=== PATIENT | female | born 1955 | race Caucasian/White ===

== ENCOUNTER → 2017-10-14 14:41 | Outpatient (CLI) | payer MEDICARE, OTHER, SELFPAY ==
--- NOTE | 2017-10-14 14:51 | XR_ITS ---
XR KUB CLINICAL INDICATION: ITS.REASON: OBSTIPATION ORDERING PHYSICIAN: Shimon Erickson PATIENT AGE: 62 years COMPARISON: None FINDINGS: The bowel gas pattern is nonspecific with gas-filled loops of small and large bowel. Increased soft tissue density is present in the pelvis and may be related pelvic mass versus distended urinary bladder. There is mild lumbar curvature convex right. IMPRESSION: 1. Mild amount gas-filled loops of small and large bowel. No obvious obstruction. 2. Pelvic soft tissue mass versus enlarged uterus or distended urinary bladder
== END ==
PROVIDERS: PCP Internal Medicine; Visit Provider Internal Medicine
DX: K59.09 Other constipation (principal)
CPT/HCPCS: 74018

== ENCOUNTER → 2017-10-24 10:38 | Outpatient (CLI) | payer MEDICARE, OTHER, SELFPAY | PROVIDERS: PCP Internal Medicine; Visit Provider Nurse Practitioner Obstetrics & Gynecology | DX: R19.03 Right lower quadrant abdominal swelling, mass and lump (principal) | CPT/HCPCS: 36415; 86316 ==

== ENCOUNTER → 2018-01-18 15:33 | Outpatient (CLI) | payer MEDICARE, OTHER, SELFPAY ==
--- NOTE | 2018-01-18 16:17 | NVE_ITS ---
Venous Exam Indications: 729.5 Pain in limb. IMPRESSIONS 1. There is no evidence of significant Reflux. 2. No evidence of deep or superficial vein thrombosis involving the left lower extremity Right lower extremity venous duplex evaluation. Doppler flow study including spectral analysis, color and tsai scale imaging. Location: Vascular laboratory. Patient status: Outpatient. Tables: Venous flow and imaging: + +-------+ + Location Overall Flow properties + +-------+ + Right common femoral Patent Normal phasicity; spontaneous; normal augmentation; compressible + +-------+ + Right saphenofemoral junction Patent Compressible + +-------+ + Right profunda femoral Patent Compressible + +-------+ + Right femoral Patent Normal phasicity; spontaneous; normal augmentation; compressible + +-------+ + Right greater saphenous Patent Normal phasicity; spontaneous; normal augmentation; compressible + +-------+ + Right popliteal Patent Normal phasicity; spontaneous; normal augmentation; compressible + +-------+ + Right posterior tibial Patent Compressible + +-------+ + Right peroneal Patent Compressible + +-------+ + Right gastrocnemius Patent Compressible + +-------+ + Right soleal Patent Compressible + +-------+ + (Report amended ) Electronically signed by: Otoniel Aldana [id number]
== END ==
PROVIDERS: PCP Internal Medicine; Visit Provider Internal Medicine
DX: M79.604 Pain in right leg (principal)
CPT/HCPCS: 93971

== ENCOUNTER → 2018-08-09 14:50 | Outpatient (CLI) | payer MEDICARE, OTHER, SELFPAY ==
[2018-08-09 16:39] LABS: Anion Gap 12.8 mEq/L (5-15); Blood Urea Nitrogen 18 mg/dL (7-18); Carbon Dioxide 30 mmol/L (21.0-32.0); Chloride 102 mmol/L (98-107); Creatinine,Serum 0.93 mg/dL (0.55-1.02); Estimated Glomerular Filt Rate 61 ml/min (>60); GFR (African American) 73 ML/MIN (>60); Glucose 99 mg/dL (74-106); Potassium 4.8 mmoL/L (3.5-5.1); Sodium 140 mmol/L (136-145)
== END ==
PROVIDERS: Visit Provider Internal Medicine
DX: I10 Essential (primary) hypertension (principal)
CPT/HCPCS: 36415; 80048

== ENCOUNTER → 2019-01-03 15:22 | Outpatient (CLI) | payer MEDICARE, OTHER, SELFPAY ==
[2019-01-03 15:40] LABS: Basophils % 0.2 % (0.1-2.0); Eosinophils # 0.1 K/mm3 (0.0-0.4); Eosinophils % 1.7 % (0.1-12.0); Hematocrit 45.4 % (37.0-47.0); Hemoglobin 15.2 g/dL (12.2-16.2); Lymphocytes # 1.5 K/mm3 (0.7-4.5); Lymphocytes % 17.1 % (10-50); Mean Corpuscular HGB Conc 33.4 g/dL (31.8-35.4); Mean Corpuscular Hemoglobin 29.2 pg (27.0-31.2); Mean Corpuscular Volume 87.5 fl (81-99); Mean Platelet Volume 6.2 fl (7.4-10.4); Monocytes # 0.4 K/mm3 (0.1-1.0); Monocytes % 5.1 % (1.7-9.3); Neutrophils # 6.4 K/mm3 (1.8-7.8); Neutrophils % 75.8 % (37.0-80.0); Platelet Count 114 K/mm3 (142-424); Red Blood Count 5.19 M/mm3 (4.20-5.40); Red Cell Distribution Width 13.7 % (11.5-17.5); White Blood Count 8.5 K/mm3 (4.8-10.8)
[2019-01-03 18:11] LABS: Anion Gap 10.6 mEq/L (5-15); Blood Urea Nitrogen 21 mg/dL (7-18); Calcium 9.4 mg/dL (8.5-10.1); Carbon Dioxide 31 mmol/L (21.0-32.0); Chloride 102 mmol/L (98-107); Creatinine,Serum 0.98 mg/dL (0.55-1.02); Estimated Glomerular Filt Rate 57 ml/min (>60); GFR (African American) 69 ML/MIN (>60); Glucose 93 mg/dL (74-106); Potassium 4.6 mmoL/L (3.5-5.1); Sodium 139 mmol/L (136-145)
== END ==
PROVIDERS: Visit Provider Internal Medicine
DX: I10 Essential (primary) hypertension (principal); D69.6 Thrombocytopenia, unspecified
CPT/HCPCS: 36415; 80048; 85025

== ENCOUNTER → 2019-01-12 11:03 | Outpatient (CLI) | payer MEDICARE, OTHER, SELFPAY ==
--- NOTE | 2019-01-12 11:11 | XR_ITS ---
XR hand LT min 3V HISTORY: Posttraumatic pain ITS.REASON: S/P FALL ORDERING PHYSICIAN: Shimon Erickson PATIENT AGE: 63 years COMPARISON: None FINDINGS: There is an oblique mildly displaced fracture involving the proximal aspect of the proximal phalanx of the fourth finger with mild ulnar and dorsal angulation of the distal fracture fragment. A mildly displaced transverse fracture involves the proximal aspect of the proximal phalanx of the fifth finger. The distal fracture fragment is displaced toward the radius x 3 mm. There is also mild dorsal and ulnar angulation and palmar displacement of the distal fracture fragment. Severe osteoarthritic changes are present at the first metacarpal carpal joint. IMPRESSION: Mildly displaced fractures of the proximal phalanx of the fourth and fifth digits
--- NOTE | 2019-01-12 11:11 | XR_ITS ---
XR knee LT 3V HISTORY: Pain following injury ITS.REASON: S/P FALL 01/11/19,LT SHOULDER HAND/WRIST,LT KNEE INJURY ORDERING PHYSICIAN: Shimon Erickson PATIENT AGE: 63 years COMPARISON: None FINDINGS: No fracture or dislocation. No lytic or blastic change. Normal mineralization. No significant arthritic changes evident. No other significant findings IMPRESSION: Negative Knee
--- NOTE | 2019-01-12 11:11 | XR_ITS ---
XR wrist LT min 3V HISTORY pain following injury ITS.REASON: S/P FALL ORDERING PHYSICIAN: Shimon Erickson PATIENT AGE: 63 years Comparison: None FINDINGS: Severe osteoarthritic changes are present at the first metacarpal carpal joint with periarticular calcification. No acute wrist fractures evident. There are fractures of the proximal phalanges of the fourth and fifth digits as described in the hand report. IMPRESSION: Osteoarthritis of the wrist, no acute fracture
--- NOTE | 2019-01-12 11:11 | XR_ITS ---
XR shoulder LT min 2V HISTORY: Pain following injury ITS.REASON: S/P FALL ORDERING PHYSICIAN: Shimon Erickson PATIENT AGE: 63 years Comparison: None FINDINGS: No acute fracture or dislocation. There are mild osteoarthritic changes of the glenohumeral joint. IMPRESSION: No acute finding
== END ==
PROVIDERS: PCP Internal Medicine; Visit Provider Internal Medicine
DX: M25.512 Pain in left shoulder (principal); M79.642 Pain in left hand; M25.562 Pain in left knee
CPT/HCPCS: 73030; 73110; 73130; 73562

== ENCOUNTER → 2019-01-24 09:17 | Outpatient (CLI) | payer MEDICARE, OTHER, SELFPAY ==
--- NOTE | 2019-01-24 09:22 | XR_ITS ---
XR hand LT min 3V HISTORY: Follow-up fracture/ORIF, pain and swelling ITS.REASON: 3 views ORDERING PHYSICIAN: Osmani Caputo MD PATIENT AGE: 63 years COMPARISON: 01/16/2019 FINDINGS: There are 2 pins present stabilizing the proximal phalanx fracture of the fifth finger which is in good alignment. A longitudinal and and an oblique smaller and is present within the proximal phalanx fracture of the fourth finger with good alignment. There is an overlying splint. There are osteoarthritic changes of the first metacarpal carpal joint. IMPRESSION: Status post external fixation of the fourth and fifth proximal phalangeal fracture with good alignment
== END ==
PROVIDERS: PCP Internal Medicine; Visit Provider Orthopaedic Surgery
DX: S62.611A Displaced fracture of proximal phalanx of left index finger, initial encounter for closed fracture (principal)
CPT/HCPCS: 73130

== ENCOUNTER 2019-01-25 10:16 | Outpatient (RCR) | payer MEDICARE, OTHER, SELFPAY | END 2019-01-25 10:25 | disposition home or self-care (01) | LOC: OT 10:16 | PROVIDERS: Visit Provider Orthopaedic Surgery | DX: S62.619A Displaced fracture of proximal phalanx of unspecified finger, initial encounter for closed fracture (principal) | CPT/HCPCS: 97763 ==

== ENCOUNTER → 2019-02-09 10:16 | Outpatient (CLI) | payer MEDICARE, OTHER, SELFPAY ==
--- NOTE | 2019-02-09 10:21 | XR_ITS ---
XR hand LT min 3V HISTORY: Follow-up ORIF ITS.REASON: 3 views ORDERING PHYSICIAN: Wanda Boyle MD PATIENT AGE: 64 years COMPARISON: 01/24/2019 FINDINGS: No change in the pins in the proximal phalanx of the fifth digit as well as proximal phalanx of the fourth digit and metacarpal phalangeal junction. There remains good alignment of the fractures of the proximal phalanx of the fourth and fifth digits. IMPRESSION: No change status post ORIF fourth fifth proximal phalanges with good alignment
== END ==
PROVIDERS: PCP Internal Medicine; Visit Provider Orthopaedic Surgery
DX: S62.619A Displaced fracture of proximal phalanx of unspecified finger, initial encounter for closed fracture (principal)
CPT/HCPCS: 73130

== ENCOUNTER → 2019-03-02 12:38 | Outpatient (CLI) | payer MEDICARE, OTHER, SELFPAY ==
--- NOTE | 2019-03-02 12:43 | XR_ITS ---
XR hand LT min 3V HISTORY: Follow-up fracture ITS.REASON: left hand fx post op ORDERING PHYSICIAN: Wanda Boyle MD PATIENT AGE: 64 years COMPARISON: 02/09/2019 FINDINGS: K wires been removed from the fourth and fifth digits. One can remains in place at the distal aspect of the proximal phalanx of the fourth finger. Oblique fracture line remains visible at the proximal phalanx of the fourth digit. The fracture at the base of the proximal phalanx of the fifth digit is not well delineated and may represent some healing. Fractures are nondisplaced. There are osteoarthritic changes of the first metacarpal carpal joint IMPRESSION: Good alignment status post pin removal other fractures of the proximal phalanx of the fourth and fifth digits
== END ==
PROVIDERS: PCP Internal Medicine; Visit Provider Orthopaedic Surgery
DX: S62.619A Displaced fracture of proximal phalanx of unspecified finger, initial encounter for closed fracture (principal)
CPT/HCPCS: 73130

== ENCOUNTER → 2019-04-04 14:03 | Outpatient (CLI) | payer MEDICARE, OTHER, SELFPAY ==
--- NOTE | 2019-04-04 14:08 | XR_ITS ---
XR hand LT min 3V HISTORY: ITS.REASON: finger fracture ORDERING PHYSICIAN: Wanda Boyle MD PATIENT AGE: 64 years COMPARISON: 03/02/2019. FINDINGS: The position of the fixator pin involving the proximal phalanx of the fourth digit is stable. There are subtle slight increase osseous union across the oblique fracture involving the proximal phalanx of the fourth digit. There is no abnormal angulation. The remainder of the hand and wrist appear stable. Impression: Mild partial healing of the fracture of the proximal phalanx of the fourth digit.
== END ==
PROVIDERS: PCP Internal Medicine; Visit Provider Orthopaedic Surgery
DX: S62.619A Displaced fracture of proximal phalanx of unspecified finger, initial encounter for closed fracture (principal)
CPT/HCPCS: 73130

== ENCOUNTER 2019-04-09 14:00 | Outpatient (RCR) | payer MEDICARE, OTHER, SELFPAY ==
--- NOTE | 2019-02-16 15:41 | HMH.OTOPEV ---
OT Inpatient Evaluation Rehab OT Outpatient Eval Start: 02/16/19 14:53 Freq: Status: Active Protocol: [facility]16[facility]19 14[facility]: [facility]16[facility]19 [id number] Electronically Signed By Song Rousseau OT 02/16/19 14:54 Outpatient Therapy Subjective History Subjective History Pt is a 64 year old female who reports to OT for initial evaluation to left hand. Pt was accompanied by her caregiver; pt has down syndrome and is non verbal. Caregiver reports she had a fall on 01/11/19 in [address] hallway resulting in fracturing her left ring and small fingers. Pt has surgery on 01/16/19; S/P CRPP 4th and 5th proximal phalanges. 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 Caregiver explained the pins were removed on the 09 of February. Pt does demonstrate with decreased AROM and strength at left ring and small fingers. Pt will continue to be seen by therapist in order to increase functional use of Left hand. L Ring Finger STG MP Flex: 75 degrees PIP Flex: 90 degrees PIP Ext: 0-40 degrees DIP Flex: 20 degrees L Ring Finger LTG MP Flex: 90 degrees PIP Flex: 100 degrees PIP Ext: 30 degrees DIP Flex: 40 degrees L Small Finger STG MP Flex: 65 degrees PIP Flex: 60 degrees DIP Flex: 50 degrees L Small Finger LTG MP Flex: 80 degrees PIP Flex: 90 degrees DIP Flex: 60 degrees Chief Complaint Stiff,Weakness,Decreased Parking Attendant Strength Symptom Type Ache,Throb Symptoms Relieved By Rest/Positioning Symptoms Aggravated By Physical Activity,Rachel
== END 2019-04-09 14:05 | disposition home or self-care (01) ==
LOC: OT 14:00
PROVIDERS: Visit Provider Orthopaedic Surgery
DX: S62.645A Nondisplaced fracture of proximal phalanx of left ring finger, initial encounter for closed fracture (principal); S62.647A Nondisplaced fracture of proximal phalanx of left little finger, initial encounter for closed fracture
CPT/HCPCS: 97110; 97140; 97166

== ENCOUNTER → 2019-06-27 12:00 | Outpatient (CLI) | payer MEDICARE, OTHER, SELFPAY ==
[2019-06-27 13:02] LABS: Basophils % 0.3 % (0.1-2.0); Eosinophils # 0.2 K/mm3 (0.0-0.4); Eosinophils % 1.9 % (0.1-12.0); Hematocrit 46.6 % (37.0-47.0); Hemoglobin 14.7 g/dL (12.2-16.2); Lymphocytes # 1.4 K/mm3 (0.7-4.5); Lymphocytes % 15.9 % (10-50); Mean Corpuscular HGB Conc 31.5 g/dL (31.8-35.4); Mean Corpuscular Hemoglobin 28.5 pg (27.0-31.2); Mean Corpuscular Volume 90.5 fl (81-99); Mean Platelet Volume 6.6 fl (7.4-10.4); Monocytes # 0.4 K/mm3 (0.1-1.0); Monocytes % 4.5 % (1.7-9.3); Neutrophils # 6.8 K/mm3 (1.8-7.8); Neutrophils % 77.4 % (37.0-80.0); Platelet Count 125 K/mm3 (142-424); Red Blood Count 5.15 M/mm3 (4.20-5.40); Red Cell Distribution Width 14.5 % (11.5-17.5); White Blood Count 8.8 K/mm3 (4.8-10.8)
[2019-06-27 13:46] LABS: Alanine Aminotransferase 20 U/L (12-78); Albumin/Globulin Ratio 1.3 (1.1-1.8); Alkaline Phosphatase 98 U/L (46-116); Anion Gap 11.8 mEq/L (5-15); Aspartate Amino Transferase 19 U/L (15-37); Bilirubin,Total 0.5 mg/dL (0.2-1.0); Blood Urea Nitrogen 23 mg/dL (7-18); Calcium 9.3 mg/dL (8.5-10.1); Carbon Dioxide 31 mmol/L (21.0-32.0); Chloride 103 mmol/L (98-107); Creatinine,Serum 0.96 mg/dL (0.55-1.02); Estimated Glomerular Filt Rate 58 ml/min (>60); GFR (African American) 71 ML/MIN (>60); Glucose 78 mg/dL (74-106); Potassium 4.8 mmoL/L (3.5-5.1); Sodium 141 mmol/L (136-145)
== END ==
PROVIDERS: Visit Provider Internal Medicine
DX: I10 Essential (primary) hypertension (principal); D69.6 Thrombocytopenia, unspecified
CPT/HCPCS: 36415; 80053; 85025

== ENCOUNTER → 2022-11-22 14:42 | Outpatient (CLI) | payer MEDICARE, OTHER, SELFPAY ==
[2022-11-22 17:29] LABS: Chloride 99 mmol/L (98-107); Potassium 4.9 mmoL/L (3.5-5.1); Sodium 135 mmol/L (136-145)
[2022-11-22 17:31] LABS: Blood Urea Nitrogen 22 mg/dl (7-17); Estimated Glomerular Filt Rate 71 ml/min (>60); GFR (African American) 86 ML/MIN (>60)
[2022-11-22 17:32] LABS: Alanine Aminotransferase 24 U/L (12-78); Albumin Level 4.1 g/dl (3.5-5.0); Albumin/Globulin Ratio 1.9 (1.1-1.8); Alkaline Phosphatase 97 U/L (38-126); Anion Gap 10.9 mEq/L (5-15); Aspartate Amino Transferase 33 U/L (14-36); Bilirubin,Total 0.5 mg/dl (0.2-1.3); Carbon Dioxide 30 mmol/L (22.0-30.0); Globulin 2.2 g/dL (1.3-3.2); Total Protein,Serum 6.3 g/dl (6.3-8.2)
[2022-11-22 17:33] LABS: Glucose 56 mg/dl (74-100)
== END ==
PROVIDERS: PCP Internal Medicine; Visit Provider Internal Medicine
DX: I10 Essential (primary) hypertension (principal); D69.6 Thrombocytopenia, unspecified; K59.00 Constipation, unspecified; F71 Moderate intellectual disabilities
CPT/HCPCS: 80053

== ENCOUNTER 2023-03-22 18:54 | Inpatient (IN) | payer MEDICARE, OTHER, SELFPAY ==
[2023-03-22] VITALS (8 sets, daily range): BP systolic 144–184; BP diastolic 71–85; PULSE 70–81; RESP 16–20; TEMP 36.6–43; O2SAT 94–98; BMI 25.3
--- NOTE | 2023-03-22 19:37 | HMH.EDGENADL ---
Discharge Plan Disposition Patient Disposition: Still a Patient Chief Complaint: Nausea/Vomiting/Diarrhea Prescriptions Prescriptions: No Action polyethylene glycol 3350 [GentleLax] 17 gram/dose powder 17 g PO Q10M spironolactone 25 MG tablet 75 mg PO DAILY Referrals Follow up/Referrals: Shimon Erickson MD [Primary Care Provider] - See instructions Clinical Impressions Clinical Impression: Nausea & vomiting Instructions Patient Instructions: DI for Diarrhea and Traveler's Diarrhea -- Adult, DI for Diarrhea and Traveler's Diarrhea -- Child, DI for Nausea -- Adult, DI for Nausea -- Child Discharge ED Provider: [facility] General Adult HPI General Chief complaint: Nausea/Vomiting/Diarrhea Stated complaint: constipated Time Seen by Provider: 03/22/23 19:37 Mode of Arrival: Wheelchair Source of Information: Patient Limitations: Physical Limitations Description of Symptoms (Recalled from ER Triage Doc. by RN): pt is nonverbal and brought to the ED by her sister which is her legal guardian. pt sister reports the pt has had two episodes of vomiting today and reported she has not been acting like herself. pt sister also reported the pt has not had a normal large bowel movement since 03/05 but instead has had multiple small or medium bowel movements. on assessment pt does have wet respirations and family is concerned for aspiration. History of Present Illness HPI narrative: Patient is a 68-year-old female brought in by her sister who is her legal guardian. The patient has developmental delay and primary history is obtained from the sister. The sister states that the patient typically has very robust appetite but over the last 24 hours she has had decreased p.o. intake and multiple vomiting episodes and possible abdominal complaints. No diarrhea. No fevers or chills. No respiratory complaints. She does have a history of constipation and she has not had any significant changes in bowel movements over the last month. Related Data Home Medications Medication Instructions Recorded Confirmed polyethylene glycol 3350 17 17 g PO Q10M constipation 10/24/17 04/04/19 gram/dose oral powder (GentleLax) spironolactone 25 mg tablet 75 mg PO DAILY Fluid 01/16/19 04/04/19 betamethasone dipropionate 0.05 % 1 applic topical BID rash 03/22/23 03/22/23 topical ointment diphenhydramine HCl 12.5 mg/5 mL 25 mg PO DAILYP PRN . 03/22/23 03/22/23 oral elixir fexofenadine 180 mg tablet 180 mg PO DAILY Allergy Symptoms 03/22/23 03/22/23 loratadine 10 mg tablet (Claritin) 10 mg PO DAILY Allergy Symptoms 03/22/23 03/22/23 temazepam 15 mg capsule 15 mg PO DAILY sleep 03/22/23 03/22/23 vitamins A,C,Q-rqlg-lyjghk 2,148 1 tab PO BID Supplement 03/22/23 03/22/23 mcg-113 mg-45 mg-17.4 mg tablet (PreserVision AREDS) Allergies Allergy/AdvReac Type Severity Reaction Status Date / Time No Known Allergies Allergy Verified 04/04/19 16:20 [facility] Disclaimer: The information contained in this section may have been updated after the patient was seen, as this information can be updated by other users. Social History Smoking Status: Never smoker alcohol intake: never current occupational status: disabled Travel in the last 8 weeks: None household members: family housing: house caffeine: Yes ROS Obtained: Yes All systems reviewed & no additional complaints except as documented Physical Exam General General appearance: alert Respiratory Respiratory exam: Present normal lung sounds bilaterally Cardiovascular Cardiovascular exam: Present regular rate and tachycardia Abdominal Exam Abdominal exam: Present soft and distention (Mildly distended patient's clinical status limits a reliable exam there appears to be some tenderness with deep palpation throughout the entire abdomen) Neurological Exam Neurological exam: Present alert and oriented X3 Medical Decision Making [employer] Inquiry Pt receiving contr
--- NOTE | 2023-03-22 19:44 | CT_ITS ---
PROCEDURE INFORMATION: Exam: CT Abdomen And Pelvis With Contrast Exam date and time: 03/22/2023 8:32 PM Age: 68 years old Clinical indication: Patient HX: Abd distention w nausea since last night; Additional info: Diffuse abd pain/ n/v TECHNIQUE: Imaging protocol: Computed tomography of the abdomen and pelvis with contrast. Radiation optimization: All CT scans at this facility use at least one of these dose optimization techniques: automated exposure control; mA and/or kV adjustment per patient size (includes targeted exams where dose is matched to clinical indication); or iterative reconstruction. Contrast material: ISOVUE; Contrast volume: 75 ml; Contrast route: IV; REPORTING DATA: Count of CT and Cardiac NM exams in prior 12 months: This patient has received 0 known CTs and 0 known cardiac nuclear medicine studies in the 12 months prior to the current study. COMPARISON: CR KUB XR KUB 10/14/2017 2:55 PM FINDINGS: Liver: Normal. No mass. Gallbladder and bile ducts: Normal. No calcified stones. No ductal dilation. Pancreas: Normal. No ductal dilation. Spleen: Multiple calcified splenic granulomata. Adrenal glands: 1.6 cm right adrenal myelolipoma. Kidneys and ureters: Normal. No hydronephrosis. Stomach and bowel: Dilated cecum seen in the upper abdomen and left upper quadrant. There is spiraling of the mesentery and vasculature in the right lower quadrant. Colonic diverticulosis. Appendix: No evidence of appendicitis. Intraperitoneal space: Small volume of free fluid in the lower abdomen and pelvis. Vasculature: Mild atherosclerotic changes are seen within the abdominal aorta and branch vasculature without evidence of aneurysm. Lymph nodes: Unremarkable. No enlarged lymph nodes. Urinary bladder: Unremarkable as visualized. Reproductive: Unremarkable as visualized. Bones/joints: Unremarkable. No acute fracture. Soft tissues: Unremarkable. IMPRESSION: 1. Findings consistent with cecal volvulus. 2. Diverticulosis. 3. Small volume of ascites. 4. 1.6 cm right adrenal myelolipoma.
--- NOTE | 2023-03-22 19:44 | PC.NURSE ---
Rounded on patient, family at bedside. no concerns were voiced at this time.
[2023-03-22 19:58] LABS: Basophils % 0.1 % (0.1-2.0); Eosinophils # 0.1 K/mm3 (0.0-0.4); Eosinophils % 0.5 % (0.1-12.0); Hematocrit 43.9 % (37.0-47.0); Hemoglobin 14.2 g/dL (12.2-16.2); Lymphocytes # 0.9 K/mm3 (0.7-4.5); Lymphocytes % 6.3 % (10-50); Mean Corpuscular HGB Conc 32.4 g/dL (31.8-35.4); Mean Corpuscular Hemoglobin 28.6 pg (27.0-31.2); Mean Corpuscular Volume 88.3 fl (81-99); Mean Platelet Volume 7.5 fl (7.4-10.4); Monocytes # 0.2 K/mm3 (0.1-1.0); Monocytes % 1.6 % (1.7-9.3); Neutrophils # 13.6 K/mm3 (1.8-7.8); Neutrophils % 91.6 % (37.0-80.0); Platelet Count 144 K/mm3 (142-424); Red Blood Count 4.97 M/mm3 (4.20-5.40); Red Cell Distribution Width 14.2 % (11.5-17.5); White Blood Count 14.9 K/mm3 (4.8-10.8)
[2023-03-22 20:00] LABS: Chloride 91 mmol/L (98-107); MANUAL DIFFERENTIAL MANUAL DIFFERENTIAL (MANUAL DIFF); Potassium 4.1 mmoL/L (3.5-5.1); Sodium 130 mmol/L (136-145)
[2023-03-22 20:02] LABS: Albumin Level 4.2 g/dl (3.5-5.0)
[2023-03-22 20:03] LABS: Alanine Aminotransferase 34 U/L (12-78); Alkaline Phosphatase 118 U/L (38-126); Anion Gap 11.1 mEq/L (5-15); Aspartate Amino Transferase 40 U/L (14-36); Bilirubin,Total 0.3 mg/dl (0.2-1.3); Blood Urea Nitrogen 13 mg/dl (7-17); Calcium 9.1 mg/dl (8.4-10.2); Carbon Dioxide 32 mmol/L (22.0-30.0); Creatinine Clearance Estimated 40 mL/min (50-200); Estimated Glomerular Filt Rate 83 ml/min (>60); GFR (African American) 100 ML/MIN (>60); Glucose 191 mg/dl (74-100); Lipase 83 U/L (23-300)
[2023-03-22 20:04] LABS: Albumin/Globulin Ratio 1.6 (1.1-1.8); Globulin 2.6 g/dL (1.3-3.2); Total Protein,Serum 6.8 g/dl (6.3-8.2)
[2023-03-22 20:22] LABS: Lymphocytes % 9 % (10-50); Monocytes % 1 % (2-9); Neutrophils % 89 % (42-76); Platelet Estimate Slight Decrease; RBC Morphology Normal; Total Cells Counted 100
--- NOTE | 2023-03-22 20:25 | PC.NURSE ---
patient gone to RAD at this time.
--- NOTE | 2023-03-22 20:38 | PC.NURSE ---
patient back in room at this time.
[2023-03-22 21:20] LABS: Microscopic, Urine URINE MICROSCOPIC (MICROSCOPIC)
--- NOTE | 2023-03-22 21:24 | PC.NURSE ---
Dr. Carvalho paged for ED doctor
[2023-03-22 21:25] LABS: Appearance,Urine CLEAR (Clear); Bilirubin,Urine Negative (Negative); Blood, Urine Negative (Negative); Color,Urine YELLOW (Yellow); Glucose,Urine (UA) Negative (Negative); Ketones,Urine Negative (Negative); Leukocyte Esterase,Urine Negative (Negative); Nitrate,Urine Negative (Negative); Protein,Urine Negative (Negative); Specific Gravity, Urine <= 1.005 (1.005-1.030); Urobilinogen,Urine 0.2 EU/dl (0.2)
--- NOTE | 2023-03-22 21:26 | PC.NURSE ---
Dr. Carvalho on phone with ED doctor
--- NOTE | 2023-03-22 21:36 | PC.NURSE ---
O/P with [facility] for possible transfer at this time.
--- NOTE | 2023-03-22 21:37 | PC.NURSE ---
will call back when images are received.
--- NOTE | 2023-03-22 21:39 | HMH.EDGENADL ---
Discharge Plan Disposition Patient Disposition: Still a Patient Clinical Impressions Clinical Impression: Nausea & vomiting Discharge ED Provider: [facility] General Adult HPI General Chief complaint: Nausea/Vomiting/Diarrhea Stated complaint: constipated Time Seen by Provider: 03/22/23 19:37 Mode of Arrival: Wheelchair Source of Information: Patient Limitations: Physical Limitations Description of Symptoms (Recalled from ER Triage Doc. by RN): pt is nonverbal and brought to the ED by her sister which is her legal guardian. pt sister reports the pt has had two episodes of vomiting today and reported she has not been acting like herself. pt sister also reported the pt has not had a normal large bowel movement since 03/05 but instead has had multiple small or medium bowel movements. on assessment pt does have wet respirations and family is concerned for aspiration. Related Data Home Medications Medication Instructions Recorded Confirmed polyethylene glycol 3350 17 17 g PO Q10M constipation 10/24/17 03/22/23 gram/dose oral powder (GentleLax) spironolactone 25 mg tablet 75 mg PO DAILY Fluid 01/16/19 03/22/23 betamethasone dipropionate 0.05 % 1 applic topical BID rash 03/22/23 03/22/23 topical ointment diphenhydramine HCl 12.5 mg/5 mL 25 mg PO DAILYP Allergy Symptoms 03/22/23 03/22/23 oral elixir fexofenadine 180 mg tablet 180 mg PO HS Allergy Symptoms 03/22/23 03/23/23 loratadine 10 mg tablet (Claritin) 10 mg PO DAILY Allergy Symptoms 03/22/23 03/22/23 temazepam 15 mg capsule 15 mg PO HS sleep 03/22/23 03/23/23 vitamins A,C,I-veoj-exxair 2,148 1 tab PO BID Supplement 03/22/23 03/22/23 mcg-113 mg-45 mg-17.4 mg tablet (PreserVision AREDS) Allergies Allergy/AdvReac Type Severity Reaction Status Date / Time losartan Allergy Verified 03/22/23 22:17 [facility] Disclaimer: The information contained in this section may have been updated after the patient was seen, as this information can be updated by other users. Social History (Updated 03/23/23 @ 01:48 by jayne manzanares CRNA) Smoking Status: Never smoker alcohol intake: never substance use type: denies use current occupational status: disabled Travel in the last 8 weeks: None household members: family housing: house caffeine: Yes Physical Exam General General appearance: alert Medical Decision Making Vital Signs: 03/22/23 18:55 03/22/23 21:15 03/22/23 21:30 Temperature 97.9 F Temperature Source Axillary Pulse Rate 71 72 Pulse Rate [Left Radial] 81 Respiratory Rate 17 18 Blood Pressure 144/72 H 155/76 H Blood Pressure [Right Arm] 184/82 H Blood Pressure Mean 87 Blood Pressure Mean [Right Arm] 116 Blood Pressure Source [Right Arm] Automatic Cuff Blood Pressure Position [Right Arm] Sitting 02 Sat by Pulse Oximetry 97 97 96 Oxygen Delivery Method Room Air 03/22/23 21:40 03/22/23 22:01 03/22/23 22:21 Temperature Temperature Source Pulse Rate 71 73 72 Pulse Rate [Left Radial] Respiratory Rate 18 20 Blood Pressure 146/71 H 148/71 H 157/85 H Blood Pressure [Right Arm] Blood Pressure Mean 89 109 Blood Pressure Mean [Right Arm] Blood Pressure Source [Right Arm] Blood Pressure Position [Right Arm] 02 Sat by Pulse Oximetry 94 L 98 97 Oxygen Delivery Method 03/22/23 22:58 03/22/23 22:58 Temperature 97.9 F Temperature Source Axillary Pulse Rate 70 Pulse Rate [Left Radial] Respiratory Rate 16 Blood Pressure 157/85 H Blood Pressure [Right Arm] Blood Pressure Mean Blood Pressure Mean [Right Arm] Blood Pressure Source [Right Arm] Blood Pressure Position [Right Arm] 02 Sat by Pulse Oximetry Oxygen Delivery Method Room Air Room Air Lab Data Lab Results 03/22/23 11:15: Urine Color Yellow, Urine Appearance Clear, Urine pH 6.5, Ur Specific [place] <= 1.005, Urine Protein Negative, Urine Glucose (UA) Negative, Urine Ketones Negative, Urine
--- NOTE | 2023-03-22 21:40 | PC.NURSE ---
O/P with at this time.
[2023-03-22 21:54] LABS: Squamous Epithelial Cell,Urine Occasional #/hpf (0-5)
--- NOTE | 2023-03-22 21:54 | PC.NURSE ---
Awaiting call back from [facility] at this time.
--- NOTE | 2023-03-22 21:59 | PC.NURSE ---
O/P with at this time.
[2023-03-22 22:02] LABS: Lactic Acid 1.3 mmol/L (0.7-2.1)
--- NOTE | 2023-03-22 22:03 | PC.NURSE ---
paged at this
--- NOTE | 2023-03-22 22:04 | PC.NURSE ---
O/P with at this time.
--- NOTE | 2023-03-22 22:06 | PC.NURSE ---
patient going to surgery tonight
--- NOTE | 2023-03-22 22:08 | PC.NURSE ---
House notified that patient is going to OR with Dr. Carvalho and to call in surg. team
[2023-03-22 22:10] LABS: Coronavirus 19, PCR Not Detected (NotDetected); Influenza A, PCR Not Detected (NotDetected); Influenza B, PCR Not Detected (NotDetected)
--- NOTE | 2023-03-22 22:17 | PC.NURSE ---
Surgery team paged at this time at request. Received call backs from XOCHITL Johnson, Val, and Malini.
--- NOTE | 2023-03-22 22:39 | PC.NURSE ---
in room talking with patient at this time.
--- NOTE | 2023-03-22 22:48 | PC.NURSE ---
pt family requested hearing aids be kept in until she gets upstairs. surgery aware.
--- NOTE | 2023-03-22 22:54 | EXP.SURG.CON ---
History of Present Illness *Admission Date: 03/22/23 *Reason for visit:: Bowel obstruction *History of present illness: Patient is a 68-year-old female who is nonverbal secondary to patient having developmental delay. She had presented to the emergency department after being brought here by her caregiver, her sister. Patient has had diminished appetite over the past 24 hours with decreased intake. She has had multiple episodes of vomiting. She has had decreased bowel function. She has had progressive abdominal distention. Evaluation in the emergency department revealed appreciably distended abdomen. There is no guarding or rebound but she did have diffuse tenderness with deep palpation. Work-up included CT scan of the abdomen and pelvis which revealed dilated cecum and findings of spiraling of the mesentery consistent with cecal volvulus with a small volume of fluid/ascites. Surgery was contacted. Initially it was felt that the patient would be better served in a tertiary facility. However, no bed availability was able to be acquired. Therefore plan was made to proceed with surgical intervention at this facility for cecal volvulus. [facility] Disclaimer: The information contained in this section may have been updated after the patient was seen, as this information can be updated by other users. Social History Smoking Status: Never smoker alcohol intake: never current occupational status: disabled Travel in the last 8 weeks: None household members: family housing: house caffeine: Yes Meds Home Medications and Allergies Home Medications Medication Instructions Recorded Confirmed Type polyethylene glycol 3350 17 17 g PO Q10M constipation 10/24/17 03/22/23 History gram/dose oral powder (GentleLax) spironolactone 25 mg tablet 75 mg PO DAILY Fluid 01/16/19 03/22/23 History betamethasone dipropionate 0.05 % 1 applic topical BID rash 03/22/23 03/22/23 History topical ointment diphenhydramine HCl 12.5 mg/5 mL 25 mg PO DAILYP PRN . 03/22/23 03/22/23 History oral elixir fexofenadine 180 mg tablet 180 mg PO DAILY Allergy Symptoms 03/22/23 03/22/23 History loratadine 10 mg tablet (Claritin) 10 mg PO DAILY Allergy Symptoms 03/22/23 03/22/23 History temazepam 15 mg capsule 15 mg PO DAILY sleep 03/22/23 03/22/23 History vitamins A,C,D-afuv-hefcsu 2,148 1 tab PO BID Supplement 03/22/23 03/22/23 History mcg-113 mg-45 mg-17.4 mg tablet (PreserVision AREDS) New Prescriptions to Start Prescriptions: Allergies Allergy/AdvReac Type Severity Reaction Status Date / Time losartan Allergy Verified 03/22/23 22:17 Exam (Inpt) Vital signs and Labs for Last 24 Hours: Temp Pulse Resp BP Pulse Ox O2 Del Method 97.9 F 72 20 157/85 H 97 Room Air 03/22/23 18:55 03/22/23 22:21 03/22/23 22:21 03/22/23 22:21 03/22/23 22:21 03/22/23 18:55 Laboratory Results - last 24 hr 03/22/23 19:15: WBC 14.9 H, RBC 4.97, Hgb 14.2, Hct 43.9, MCV 88.3, MCH 28.6, MCHC 32.4, RDW 14.2, Plt Count 144, MPV 7.5, Neut % (Auto) 91.6 H, Lymph % (Auto) 6.3 L, Rock % (Auto) 1.6 L, Eos % (Auto) 0.5, Baso % (Auto) 0.1, Neut # (Auto) 13.6 H, Lymph # (Auto) 0.9, Rock # (Auto) 0.2, Eos # (Auto) 0.1, Baso # (Auto) 0.0, Total Counted 100, Neutrophils % (Manual) 89 H, Lymphocytes % (Manual) 9 L, Atypical Lymphs % 1.0, Monocytes % (Manual) 1 L, Platelet Estimate Slight decrease, RBC Morphology Normal, Sodium 130 L, Potassium 4.1, Chloride 91 L, Carbon Dioxide 32 H, Anion Gap 11.1, BUN 13, Creatinine 0.70, Estimated Creat Clear 40, Estimated GFR 83, Est GFR ( Amer) 100, Glucose 191 H, Calcium 9.1, Total Bilirubin 0.3, AST 40 H, ALT 34, Alkaline Phosphatase 118, Total Protein 6.8, Albumin 4.2, Globulin 2.6, Albumin/Globulin Ratio 1.6, Lipase 83 03/22/23 19:46: Lactate 1.3 03/22/23 21:16: Urine Color Yellow, Urine Appearance Clear, Urine pH 6.0, Ur Specific [place] <= 1.005, Urine Protein Negative, Urine Glucose (UA) Negative, Ur
--- NOTE | 2023-03-22 22:56 | PC.NURSE ---
Patient gone up to surgery at this time.
--- NOTE | 2023-03-22 22:57 | PC.NURSE ---
medication pulled for surgery staff to be administered by staff in surgery
[2023-03-23] VITALS (22 sets, daily range): BP systolic 108–168; BP diastolic 49–79; PULSE 60–80; RESP 14–20; TEMP 35.5–37.7; O2SAT 95–98; BMI 25.3
--- NOTE | 2023-03-23 01:29 | EXP.OP.NOTE ---
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 Massively distended colon (cecum). She had scattered very large colonic diverticuli Operative note:: Consent was obtained and patient was taken emergently to the operating room. She was positioned in supine position. She was given preoperative intravenous antibiotics. In the operating room she was placed in a supine position. General anesthesia was induced after Weldon catheter was placed. Abdomen was prepped and draped in the standard surgical fashion. Midline laparotomy incision was made. Dissection was carried down through subcutaneous tissues. Fascia was incised. Peritoneum was entered. There was some reactive fluid which was suctioned free. Exposure was achieved. She had evidence of cecal volvulus with a massively distended cecum creating bowel obstruction. There were chronic changes within the mesentery and ileum. There was some thickening of the mesentery near the ileum as well as some thickening of the ileum itself likely secondary to chronic partial obstruction due to the underlying anatomy. Ileum was divided with a PARRIS 75 type stapling device. The right colon was mobilized incising the hepatic flexure using mostly electrocautery. The colon was somewhat adherent to the liver and this was dissected free using electrocautery. Lesser omentum of the proximal transverse colon was divided with the Enseal device. The colon was divided at the proximal transverse colon with a PARRIS 75 stapling device. Once the colon was mobilized on its mesentery the mesentery was divided with the Enseal device. The right colic vessels were clamped divided and doubly ligated with 0 Surgilon ties. [id number] ileocolic anastomosis was created with a PARRIS 75 type stapling device with the enteric defect closed with a TX 60 B stapling device. Anastomosis was inspected and appeared to be suboptimal in size with luminal compromise. Plan was made for redo and revision of anastomosis. Colon adjacent to the staple line was divided with PARRIS 75 type stapling device as well as the distal ileum. Minimal mesenteric attachments were divided with the Enseal device. This was sent with the original specimen. Once again a [id number] anastomosis was created with a PARRIS 75 type stapling device. Enterotomy defect was closed with a TX 60 B stapling device. 3-0 Surgilon seromuscular sutures were placed at the staple line angle and slightly distal to this as well as the confluence of staple lines. Enterotomy staple line was oversewn with a running 3-0 Surgilon. Mesenteric defect was reapproximated with 2-0 Vicryl. Enteric contents were returned to the abdominal cavity. Inspection was carried out for hemostasis which there appeared to be good hemostasis. Peritoneal cavity was then irrigated and aspirated until clear. Fascia was closed with a running 0 looped PDS. Subcutaneous tissues were irrigated and hemostasis was assured. Skin was closed with ila. Clean dry sterile dressing was applied. Condition: stable Disposition: PACU Complications:: None immediate
--- NOTE | 2023-03-23 01:45 | EXP.ANES.CKL ---
[facility] Disclaimer: The information contained in this section may have been updated after the patient was seen, as this information can be updated by other users. Social History Smoking Status: Never smoker alcohol intake: never substance use type: denies use current occupational status: disabled Travel in the last 8 weeks: None household members: family housing: house caffeine: Yes [facility] Anesthesia Checklist Patient Identification Patient Identification: Arm Band and Family Structural Data Admitted From: Emergency Dept Planned Operative Procedure/s: Exploratory Laparatomy with bowel resection Consent for Planned Operative Procedure(s) Verified: Yes Verified Documents: Surgical Consent and History and Physical NPO Status Verified Time NPO: 00:00 Additional verifications Patient : No Anesthesia Reactions: No Hx Blood Transfusions: No Blood Transfusion Reaction: No Cephalosporin Allergy: No Previous Colonoscopy: No Airway Assessment C-Spine Mobility Assessed: Yes TMJ Mobility Assessed: Yes Dentition: Partials Neurological Assessment Level of Consciousness: Awake, Alert and Appropriate Hx Seizures: No Numbness or tingling in extremities: No Anesthesia Plan Anesthesia Risk discussed: Yes Anesthesia Plan: Patient unable to respond/answer ASA Class: II Anesthesia Type: General Preoperative Comments Pre-Operative Comments: Hypertension. Autism.
--- NOTE | 2023-03-23 01:48 | P.PNANES_ITS ---
[facility] [place] Anesthesia Record Part I Anesthesia Record I Intake, IV Amount: 1,400 Estimated blood loss (mL): 50 Urine output (mL): 300 Blood Products used (#): none Blood Pressure: 147/74 SaO2: 96 Pulse Rate: 60 Respiratory Rate: 14 Temperature: 97 F Patient is:: Drowsy and Stable Stable to PACU at:: 01:30
[2023-03-23 01:51] LABS: POC Glucose,Bedside 178 (70-110)
--- NOTE | 2023-03-23 02:03 | PC.NURSE ---
Pt. arrived to floor by bed at this time.
--- NOTE | 2023-03-23 02:20 | SUR.PHASEI ---
0159- detailed report called to addy lopez on med surg floor 0201- pt left in stable conditon with addy lopez in pt room. VSS, dressings CDI, and family at bedside.
[2023-03-23 02:27] LABS: Microscopic,Cath URINE MICROSCOPIC (MICROSCOPIC)
[2023-03-23 02:28] LABS: Appearance,Urine/Cath CLEAR (Clear); Bilirubin,Cath Negative (Negative); Blood, Urine/Cath Negative (Negative); Color,Urine/Cath YELLOW (Yellow); Glucose,Urine/Cath (UA) Negative (Negative); Ketones,Urine/Cath Negative (Negative); Leukocyte Esterase,Cath Negative (Negative); Nitrate,Cath Negative (Negative); PH,Urine/Cath 6.5 (5.0-8.5); Protein,Urine/Cath Negative (Negative); Specific Gravity, Urine/Cath <= 1.005 (1.005-1.030); Urobilinogen,Cath 0.2 EU/dl (0.2)
--- NOTE | 2023-03-23 02:29 | EXP.HP ---
History of Present Illness *Admission Date: 03/22/23 *History of present illness: 68 year old female who presents to the medical floor for admission s/p laparotomy with right colon resection with ileocolic anastomosis. Pt is hemodynamically stable, on room air, with NGT in place. There is no evedience of bleeding from the surgical site. Pt nonverbal but does not appear to be in pain upon admission. Earlier in the night the patient presented to the ED with Sister for c/o decreased intake and appetite over the past 24 hours. Pt is nonverbal due to having hx of developmental delay. Sister is primary caregiver and historian. Sister states pt also has vomiting and decreased in bowel movements. In the ED the pt's abdomen was distened with diffuse tenderness upon deep palpation. ED work up consists of routine blood work and CT scan of abd and pelvis. CT revealed dilated cecum and findings of spiraling of the mesentery consistent with cecal volvulus with a small volume of fluid/ascites. ED physician consulted general surgery who took the patient to emergent surgery. The ED physician spoke with the hospitalist team for admission. The patient will remain NPO with NGT tube with further instructions from general surgery. She will receive fluid replacement therapy, PRN morphine for pain, and Unasyn TID. [facility] Disclaimer: The information contained in this section may have been updated after the patient was seen, as this information can be updated by other users. Social History (Updated 03/23/23 @ 01:48 by jayne manzanares CRNA) Smoking Status: Never smoker alcohol intake: never substance use type: denies use current occupational status: disabled Travel in the last 8 weeks: None household members: family housing: house caffeine: Yes Review of Systems Review of Systems Review of systems:: unable to obtain Constitutional Constitutional: Reports as per HPI, Reports difficulty sleeping and Reports poor appetite Eyes Eyes: Reports system reviewed and no additional complaints, except as documented ENT Ears, Nose, Mouth, and Throat: Reports system reviewed and no additional complaints, except as documented and Reports abnormal hearing *Cardiovascular Cardiovascular: Reports system reviewed and no additional complaints, except as documented *Respiratory Respiratory: Reports system reviewed and no additional complaints, except as documented *Gastrointestinal Gastrointestinal: Reports bloating and Reports change in stool character *Genitourinary Genitourinary: Reports system reviewed and no additional complaints, except as documented *Musculoskeletal Musculoskeletal: Reports system reviewed and no additional complaints, except as documented Integumentary/Breasts Skin/Breast: Reports system reviewed and no additional complaints, except as documented *Neurologic Neurologic: Reports abnormal hearing Comments: sister reports autism Psychiatric Comments: sister reports autism Meds Home Medications and Allergies Home Medications Medication Instructions Recorded Confirmed Type polyethylene glycol 3350 17 17 g PO Q10M constipation 10/24/17 03/22/23 History gram/dose oral powder (GentleLax) spironolactone 25 mg tablet 75 mg PO DAILY Fluid 01/16/19 03/22/23 History betamethasone dipropionate 0.05 % 1 applic topical BID rash 03/22/23 03/22/23 History topical ointment diphenhydramine HCl 12.5 mg/5 mL 25 mg PO DAILYP PRN . 03/22/23 03/22/23 History oral elixir fexofenadine 180 mg tablet 180 mg PO DAILY Allergy Symptoms 03/22/23 03/22/23 History loratadine 10 mg tablet (Claritin) 10 mg PO DAILY Allergy Symptoms 03/22/23 03/22/23 History temazepam 15 mg capsule 15 mg PO DAILY sleep 03/22/23 03/22/23 History vitamins A,C,I-wxwm-rfcqne 2,148 1 tab PO BID Supplement 03/22/23 03/22/23 History mcg-113 mg-45 mg-17.4 mg tablet (PreserVision AREDS) New Prescriptions to Start Prescriptions: Allergies Allergy/AdvReac Ty
[2023-03-23 06:42] LABS: Alanine Aminotransferase 53 U/L (12-78); Albumin Level 3.2 g/dl (3.5-5.0); Albumin/Globulin Ratio 1.5 (1.1-1.8); Alkaline Phosphatase 98 U/L (38-126); Anion Gap 7.8 mEq/L (5-15); Aspartate Amino Transferase 57 U/L (14-36); Basophils % 0.1 % (0.1-2.0); Bilirubin,Total 0.3 mg/dl (0.2-1.3); Blood Urea Nitrogen 13 mg/dl (7-17); Calcium 8.7 mg/dl (8.4-10.2); Carbon Dioxide 28 mmol/L (22.0-30.0); Chloride 101 mmol/L (98-107); Creatinine Clearance Estimated 40 mL/min (50-200); Eosinophils # 0.1 K/mm3 (0.0-0.4); Eosinophils % 0.5 % (0.1-12.0); Estimated Glomerular Filt Rate 83 ml/min (>60); GFR (African American) 100 ML/MIN (>60); Globulin 2.2 g/dL (1.3-3.2); Glucose 162 mg/dl (74-100); Hematocrit 42.3 % (37.0-47.0); Hemoglobin 13.5 g/dL (12.2-16.2); Lymphocytes # 0.9 K/mm3 (0.7-4.5); Lymphocytes % 3.7 % (10-50); Mean Corpuscular HGB Conc 31.8 g/dL (31.8-35.4); Mean Corpuscular Hemoglobin 28.3 pg (27.0-31.2); Mean Corpuscular Volume 88.9 fl (81-99); Mean Platelet Volume 6.9 fl (7.4-10.4); Monocytes # 1.6 K/mm3 (0.1-1.0); Monocytes % 6.6 % (1.7-9.3); Neutrophils # 21.5 K/mm3 (1.8-7.8); Neutrophils % 89.1 % (37.0-80.0); Platelet Count 157 K/mm3 (142-424); Potassium 3.8 mmoL/L (3.5-5.1); Red Blood Count 4.76 M/mm3 (4.20-5.40); Red Cell Distribution Width 14.2 % (11.5-17.5); Sodium 133 mmol/L (136-145); Total Protein,Serum 5.4 g/dl (6.3-8.2); White Blood Count 24.1 K/mm3 (4.8-10.8)
[2023-03-23 06:43] LABS: MANUAL DIFFERENTIAL MANUAL DIFFERENTIAL (MANUAL DIFF)
[2023-03-23 07:14] LABS: Lymphocytes % 6 % (10-50); Monocytes % 6 % (2-9); Neutrophils % 75 % (42-76); Platelet Estimate Normal; RBC Morphology Normal; Total Cells Counted 100
--- NOTE | 2023-03-23 07:23 | HMH.PHAINT1 ---
Pharmacy Intervention Comments: Patient's home medication reviewed and verified with patient's sister. -Johann Gruber, Pharm Student
--- NOTE | 2023-03-23 08:26 | EXP.SURG.PN ---
Subjective Narrative: Currently resting Exam Data for Last 24 hours Vital signs and Labs for Last 24 Hours: Temp Pulse Resp BP Pulse Ox O2 Del Method 97.6 F 72 16 108/57 L 97 Room Air 03/23/23 07:55 03/23/23 07:55 03/23/23 07:55 03/23/23 07:55 03/23/23 07:55 03/23/23 07:55 Laboratory Results - last 24 hr 03/22/23 11:15: Urine Color Yellow, Urine Appearance Clear, Urine pH 6.5, Ur Specific [place] <= 1.005, Urine Protein Negative, Urine Glucose (UA) Negative, Urine Ketones Negative, Urine Blood Negative, Urine Nitrate Negative, Urine Bilirubin Negative, Urine Urobilinogen 0.2, Ur Leukocyte Esterase Negative, Urine RBC None, Urine WBC None, Ur Squamous Epith Cells None, Urine Bacteria None 03/22/23 19:15: WBC 14.9 H, RBC 4.97, Hgb 14.2, Hct 43.9, MCV 88.3, MCH 28.6, MCHC 32.4, RDW 14.2, Plt Count 144, MPV 7.5, Neut % (Auto) 91.6 H, Lymph % (Auto) 6.3 L, [place] % (Auto) 1.6 L, Eos % (Auto) 0.5, Baso % (Auto) 0.1, Neut # (Auto) 13.6 H, Lymph # (Auto) 0.9, [place] # (Auto) 0.2, Eos # (Auto) 0.1, Baso # (Auto) 0.0, Total Counted 100, Neutrophils % (Manual) 89 H, Lymphocytes % (Manual) 9 L, Atypical Lymphs % 1.0, Monocytes % (Manual) 1 L, Platelet Estimate Slight decrease, RBC Morphology Normal, Sodium 130 L, Potassium 4.1, Chloride 91 L, Carbon Dioxide 32 H, Anion Gap 11.1, BUN 13, Creatinine 0.70, Estimated Creat Clear 40, Estimated GFR 83, Est GFR ( Amer) 100, Glucose 191 H, Calcium 9.1, Total Bilirubin 0.3, AST 40 H, ALT 34, Alkaline Phosphatase 118, Total Protein 6.8, Albumin 4.2, Globulin 2.6, Albumin/Globulin Ratio 1.6, Lipase 83 03/22/23 19:46: Lactate 1.3 03/22/23 21:16: Urine Color Yellow, Urine Appearance Clear, Urine pH 6.0, Ur Specific [place] <= 1.005, Urine Protein Negative, Urine Glucose (UA) Negative, Urine Ketones Negative, Urine Blood Negative, Urine Nitrate Negative, Urine Bilirubin Negative, Urine Urobilinogen 0.2, Ur Leukocyte Esterase Negative, Urine RBC None, Urine WBC None, Ur Squamous Epith Cells Occasional, Urine Bacteria None 03/22/23 22:06: SARS-CoV-2 (PCR) Not detected, Influenza A Untype (PCR) Not detected, Influenza Type B (PCR) Not detected 03/23/23 01:43: POC Glucose 178 H 03/23/23 06:15: WBC 24.1 H* D, RBC 4.76, Hgb 13.5, Hct 42.3, MCV 88.9, MCH 28.3, MCHC 31.8, RDW 14.2, Plt Count 157, MPV 6.9 L, Neut % (Auto) 89.1 H, Lymph % (Auto) 3.7 L, [place] % (Auto) 6.6, Eos % (Auto) 0.5, Baso % (Auto) 0.1, Neut # (Auto) 21.5 H, Lymph # (Auto) 0.9, [place] # (Auto) 1.6 H, Eos # (Auto) 0.1, Baso # (Auto) 0.0, Total Counted 100, Neutrophils % (Manual) 75, Band Neutrophils % 10.0 H, Lymphocytes % (Manual) 6 L, Monocytes % (Manual) 6, Metamyelocytes % 3.0 H, Platelet Estimate Normal, RBC Morphology Normal, Sodium 133 L, Potassium 3.8, Chloride 101, Carbon Dioxide 28, Anion Gap 7.8, BUN 13, Creatinine 0.70, Estimated Creat Clear 40, Estimated GFR 83, Est GFR ( Amer) 100, Glucose 162 H, Calcium 8.7, Total Bilirubin 0.3, AST 57 H D, ALT 53 D, Alkaline Phosphatase 98, Total Protein 5.4 L, Albumin 3.2 L D, Globulin 2.2, Albumin/Globulin Ratio 1.5 I & O for Last 24 hours: Intake & Output 03/20/23 03/21/23 03/22/23 03/23/23 11:59 11:59 11:59 11:59 Intake Total 1400 / 1400 Output Total 500 / 500 Balance 900 / 900 Weight 104 lb 15.04 oz Constitutional Constitutional: no acute distress *Routine Respiratory Exam Respiratory: Absent respiratory distress *Routine Cardiovascular Exam Cardiovascular: Absent tachycardia *Routine Abdominal Exam Comments: Dressing dry and intact. Progress Note: A&P Assessment and plan (1) Cecal volvulus: Status: Acute Assessment and plan: Stable status post colon resection (2) Status post colon resection: Status: Acute Assessment and plan: Ambulation/physical therapy consultation Continue nasogastric decompression for now (3) Developmental delay, borderline: Status: Acute
--- NOTE | 2023-03-23 13:08 | EXP.SURG.PN ---
Subjective Narrative: No major issues approximately 12 hours postoperative. Appreciable leukocytosis. Exam Data for Last 24 hours Vital signs and Labs for Last 24 Hours: Temp Pulse Resp BP Pulse Ox O2 Del Method 99.7 F H 80 16 111/49 L 96 Room Air 03/23/23 10:59 03/23/23 10:59 03/23/23 10:59 03/23/23 10:59 03/23/23 10:59 03/23/23 12:28 Laboratory Results - last 24 hr 03/22/23 11:15: Urine Color Yellow, Urine Appearance Clear, Urine pH 6.5, Ur Specific [place] <= 1.005, Urine Protein Negative, Urine Glucose (UA) Negative, Urine Ketones Negative, Urine Blood Negative, Urine Nitrate Negative, Urine Bilirubin Negative, Urine Urobilinogen 0.2, Ur Leukocyte Esterase Negative, Urine RBC None, Urine WBC None, Ur Squamous Epith Cells None, Urine Bacteria None 03/22/23 19:15: WBC 14.9 H, RBC 4.97, Hgb 14.2, Hct 43.9, MCV 88.3, MCH 28.6, MCHC 32.4, RDW 14.2, Plt Count 144, MPV 7.5, Neut % (Auto) 91.6 H, Lymph % (Auto) 6.3 L, [place] % (Auto) 1.6 L, Eos % (Auto) 0.5, Baso % (Auto) 0.1, Neut # (Auto) 13.6 H, Lymph # (Auto) 0.9, [place] # (Auto) 0.2, Eos # (Auto) 0.1, Baso # (Auto) 0.0, Total Counted 100, Neutrophils % (Manual) 89 H, Lymphocytes % (Manual) 9 L, Atypical Lymphs % 1.0, Monocytes % (Manual) 1 L, Platelet Estimate Slight decrease, RBC Morphology Normal, Sodium 130 L, Potassium 4.1, Chloride 91 L, Carbon Dioxide 32 H, Anion Gap 11.1, BUN 13, Creatinine 0.70, Estimated Creat Clear 40, Estimated GFR 83, Est GFR ( Amer) 100, Glucose 191 H, Calcium 9.1, Total Bilirubin 0.3, AST 40 H, ALT 34, Alkaline Phosphatase 118, Total Protein 6.8, Albumin 4.2, Globulin 2.6, Albumin/Globulin Ratio 1.6, Lipase 83 03/22/23 19:46: Lactate 1.3 03/22/23 21:16: Urine Color Yellow, Urine Appearance Clear, Urine pH 6.0, Ur Specific [place] <= 1.005, Urine Protein Negative, Urine Glucose (UA) Negative, Urine Ketones Negative, Urine Blood Negative, Urine Nitrate Negative, Urine Bilirubin Negative, Urine Urobilinogen 0.2, Ur Leukocyte Esterase Negative, Urine RBC None, Urine WBC None, Ur Squamous Epith Cells Occasional, Urine Bacteria None 03/22/23 22:06: SARS-CoV-2 (PCR) Not detected, Influenza A Untype (PCR) Not detected, Influenza Type B (PCR) Not detected 03/23/23 01:43: POC Glucose 178 H 03/23/23 06:15: WBC 24.1 H* D, RBC 4.76, Hgb 13.5, Hct 42.3, MCV 88.9, MCH 28.3, MCHC 31.8, RDW 14.2, Plt Count 157, MPV 6.9 L, Neut % (Auto) 89.1 H, Lymph % (Auto) 3.7 L, [place] % (Auto) 6.6, Eos % (Auto) 0.5, Baso % (Auto) 0.1, Neut # (Auto) 21.5 H, Lymph # (Auto) 0.9, [place] # (Auto) 1.6 H, Eos # (Auto) 0.1, Baso # (Auto) 0.0, Total Counted 100, Neutrophils % (Manual) 75, Band Neutrophils % 10.0 H, Lymphocytes % (Manual) 6 L, Monocytes % (Manual) 6, Metamyelocytes % 3.0 H, Platelet Estimate Normal, RBC Morphology Normal, Sodium 133 L, Potassium 3.8, Chloride 101, Carbon Dioxide 28, Anion Gap 7.8, BUN 13, Creatinine 0.70, Estimated Creat Clear 40, Estimated GFR 83, Est GFR ( Amer) 100, Glucose 162 H, Calcium 8.7, Total Bilirubin 0.3, AST 57 H D, ALT 53 D, Alkaline Phosphatase 98, Total Protein 5.4 L, Albumin 3.2 L D, Globulin 2.2, Albumin/Globulin Ratio 1.5 I & O for Last 24 hours: Intake & Output 03/21/23 03/22/23 03/23/23 03/24/23 11:59 11:59 11:59 11:59 Intake Total 1400 / 1400 Output Total 500 / 500 0 / 0 Balance 900 / 900 0 / 0 Weight 104 lb 15.04 oz *Routine Abdominal Exam Abdominal: Present distended Comments: Dressing dry Progress Note: A&P Assessment and plan (1) Cecal volvulus: Status: Acute Assessment and plan: Slowly increase activity. (2) Status post colon resection: Status: Acute (3) Developmental delay, borderline: Status: Acute
--- NOTE | 2023-03-23 14:22 | HMH.PTEV ---
Physical Therapy Evaluation Rehab PT IP Evaluation Start: 03/23/23 08:23 Freq: ONCE Status: Active Protocol: Document 03/23/23 14:11 PHORNE (Rec: 03/23/23 14:22 PHORNE [id number]) Subjective/History History History 68 yowf adm to [facility] with abdominal pain, now S/P colon resection. She has hx of developmental disability and is non-verbal, but she does understand questions and nod head yes appropropriately. She lives with family and is generally independent with all mobility without an AD. 2 steps to enter the home. Family assists her with all ADLs as needed at baseline, as well. Subjective Subjective Pt does c/o abdominal pain with transfers, but did agree to mobility assessment. Rehab PT IP Eval Objective Appearance Patient Behavior Appropriate Patient Orientation Person Difficulty following instructions mild Speech Pattern Patient Baseline Ambulation Patient Able to Ambulate No Balance Ability to Arise Able, uses arms to help Sitting Balance Steady, safe Standing Balance Steady, wide stance Dynamic Sitting Balance Ability Good Dynamic Standing Balance Ability Fair Transfers Bed Transfer Ability Minimal x 2 (25% assist) Chair Transfer Ability Minimal x 2 (25% assist) Sit to Stand Bed Transfer Ability Minimal x 2 (25% assist) Sit to Stand Chair Transfer Ability Minimal x 2 (25% assist) Rehab PT IP prob,goals,plan Problems Date of Evaluation: 03/23/23 PT IP Problems Bed Mobility,Transfers,Gait Rehab Potential Rehab Potential Good Plan PT Intervention Plan Bed Mobility,Transfers,Gait, Therapeutic Exercise PT Plan Frequency Daily Duration LOS Discharge Goals Bed Transfer Ability Minimal x 1 (25% assist) Sit to Stand Chair Transfer Ability Minimal x 1 (25% assist) Ambulation Distance (feet) 20 Discharge Plan PT Discharge Plan Pt is appropriate to return home once medically stable for d/c. May benefit from home health therapy after d/c. G -code Required No Eval Complexity Eval Charge Codes 60091 - High Complexity
--- NOTE | 2023-03-23 15:31 | PC.NURSE ---
Addendum entered by Giulia Wills RN 03/23/23 18:38: PT IS SITTING UP IN THE CHAIR. Original Note: PT IS RESTING IN BED WITH FAMILY AT BEDSIDE. PT IS NONVERBAL. ABLE TO FOLLOW COMMANDS. MEDICATED PER MAR FOR DISCOMFORT. PT STOOD AT THE SOB WITH PHYSICAL THERAPY AND NURSING STAFF THIS AFTERNOON. NG TUBE CONNECTED TO LOW WALL CONTINUOUS SUCTION. ABDOMEN SOFT/TENDER WITH DRESSING NOTED TO MIDLINE INCISION. LUNG SOUNDS CLEAR. NO EDEMA NOTED. WILL CONTINUE TO MONITOR.
--- NOTE | 2023-03-23 16:52 | EXP.ANES.II ---
[facility] Anesthesia Record Part II Anesthesia Record Part II Discharge Time: 02:00 Destination: Medical Surgical Department PACU nurse assessment reviewed?: Yes Patient Condition:: Good Anesthesia Complications:: None Swallowing reflex intact?: Yes Cyanosis?: No Blood Pressure: 164/72 Pulse Rate: 68 Temperature: 97.5 F Mental Status: Alert & Oriented Pain level:: 0 Nausea and/or vomitting:: None Intake, IV Amount: 0
[2023-03-24] VITALS: BP 128/60; PULSE 81; RESP 20; TEMP 37.6; O2SAT 95
[2023-03-24 04:00] VITALS: BP 135/55; PULSE 84; RESP 20; TEMP 37.8; O2SAT 94; BMI 26.4
--- NOTE | 2023-03-24 04:55 | PC.NURSE ---
patient has rested through the night. Did get up to the chair once more during shift and sat up for roughly an hour. Patient is nonverbal but did express some pain, see MAR. NG remains at 50 to low wall suction. Patients midline dressing is still clean dry and intact.
[2023-03-24 07:19] LABS: Anion Gap 5.2 mEq/L (5-15); Blood Urea Nitrogen 19 mg/dl (7-17); Calcium 8.2 mg/dl (8.4-10.2); Carbon Dioxide 32 mmol/L (22.0-30.0); Chloride 103 mmol/L (98-107); Creatinine Clearance Estimated 42 mL/min (50-200); Estimated Glomerular Filt Rate 62 ml/min (>60); GFR (African American) 75 ML/MIN (>60); Glucose 104 mg/dl (74-100); Potassium 4.2 mmoL/L (3.5-5.1); Sodium 136 mmol/L (136-145)
--- NOTE | 2023-03-24 07:23 | EXP.PN ---
Subjective *Date: 03/24/23 *Time: 11:21 Interval history: Tmax of 100.1 F CBC with 16K WBCs, decreased from 24K Hgb 10, decreased from 13 cr is 0.9, increased from 0.7 She is doing well. No complaints. She walked 50 feet with PT earlier today. Exam Data for Last 24 hours Vital signs and Labs for Last 24 Hours: Temp Pulse Resp BP Pulse Ox O2 Del Method 100.1 F H 84 20 135/55 L 94 L Room Air 03/24/23 04:00 03/24/23 04:00 03/24/23 04:00 03/24/23 04:00 03/24/23 04:00 03/24/23 06:45 Laboratory Results - last 24 hr 03/24/23 06:20: Sodium 136, Potassium 4.2, Chloride 103, Carbon Dioxide 32 H, Anion Gap 5.2, BUN 19 H D, Creatinine 0.90 D, Estimated Creat Clear 42, Estimated GFR 62, Est GFR ( Amer) 75 D, Glucose 104 H, Calcium 8.2 L I & O for Last 24 hours: Intake & Output 03/21/23 03/22/23 03/23/23 03/24/23 23:59 23:59 23:59 23:59 Intake Total 2836 / 2836 Output Total 600 / 600 450 / 450 Balance 2236 / 2236 -450 / -450 Weight 47.627 kg 47.6 kg 49.668 kg Constitutional Constitutional: no acute distress *Routine HEENT Exam Head: Present normocephalic Eye: Present EOMI and PERRL ENT: Present mucous membranes moist *Routine Neck Exam Neck: Present supple; Absent lymphadenopathy *Routine Respiratory Exam Respiratory: Present CTA bilaterally *Routine Cardiovascular Exam Cardiovascular: Present RRR *Routine Abdominal Exam Abdominal: Present soft Comments: abdominal dressing is c/d/i *Routine Extremities Exam Extremities: Absent cyanosis, clubbing or edema *Routine Skin Exam Skin: Present warm; Absent rash *Routine Neurological Exam Neurological: Present alert and oriented X3 Assessment and Plan *Assessment and plan (1) Cecal volvulus: Status: Acute Category: Medical Code(s): K56.2 - Volvulus (2) Status post colon resection: Status: Acute Category: Surgical Code(s): Z90.49 - Acquired absence of other specified parts of digestive tract (3) HTN (hypertension): Status: Acute Category: Medical Code(s): I10 - Essential (primary) hypertension (4) Autism: Status: Acute Category: Medical Code(s): F84.0 - Autistic disorder (5) Developmental delay, borderline: Status: Acute Category: Medical Code(s): R62.50 - Unspecified lack of expected normal physiological development in childhood Plan #cecal volvulus status post right hemicolectomy with ileocolic anastomosis POD#2 #htn #developmental delay Appreciate general surgery NGT and ford discontinued today. CXR was ordered for leukocytosis. continuing unasyn and LR @ 125mL/hr per General surgery I will order a CBC, BMP and Mg for tomorrow morning. DVT ppx: lovenox NPO ice chips only DNR
[2023-03-24 07:48] LABS: White Blood Count 16.2 K/mm3 (4.8-10.8)
[2023-03-24 07:49] LABS: Basophils % 0.1 % (0.1-2.0); Eosinophils % 0.4 % (0.1-12.0); Hematocrit 32.2 % (37.0-47.0); Hemoglobin 10.2 g/dL (12.2-16.2); Lymphocytes % 6.6 % (10-50); Mean Corpuscular HGB Conc 31.7 g/dL (31.8-35.4); Mean Corpuscular Hemoglobin 28.3 pg (27.0-31.2); Mean Corpuscular Volume 89.3 fl (81-99); Mean Platelet Volume 7.2 fl (7.4-10.4); Monocytes % 5.9 % (1.7-9.3); Neutrophils # 14.1 K/mm3 (1.8-7.8); Neutrophils % 87.1 % (37.0-80.0); Platelet Count 140 K/mm3 (142-424); Red Cell Distribution Width 14.3 % (11.5-17.5)
[2023-03-24 07:50] LABS: Eosinophils # 0.1 K/mm3 (0.0-0.4); Lymphocytes # 1.1 K/mm3 (0.7-4.5)
[2023-03-24 07:52] LABS: MANUAL DIFFERENTIAL MANUAL DIFFERENTIAL (MANUAL DIFF)
[2023-03-24 07:59] VITALS: BP 144/70; PULSE 79; RESP 18; TEMP 37.7; O2SAT 94
--- NOTE | 2023-03-24 08:00 | XR_ITS ---
FINAL REPORT CLINICAL HISTORY: FEVER, CONGESTION COMPARISON: None FINDINGS: Two views of the chest were obtained. There is a small amount of free air noted under the right hemidiaphragm. Surgical ila are noted in the upper abdomen. The floor nurse on second floor of [facility], Giulia Adrian, was called at 9:25 AM and informed of this finding. The heart size and pulmonary vascularity are within normal limits. The mediastinum is normal. Mild left base atelectasis present. There is no pneumothorax. The bony thorax is intact. IMPRESSION: Free intra-abdominal air under the right hemidiaphragm, second floor nursing was advised. Mild left base atelectasis is present. Reviewed, Interpreted and Dictated by Eder Padgett III, MD Transcribed by Radha Jimenes Authenticated and [facility]
--- NOTE | 2023-03-24 08:01 | EXP.SURG.PN ---
Subjective Narrative: Doing well. Much more alert and communicative. Much more active. Minimal NG output. According to the family patient has no abdominal pain. Discomfort from nasogastric tube. Exam Data for Last 24 hours Vital signs and Labs for Last 24 Hours: Temp Pulse Resp BP Pulse Ox O2 Del Method 100.1 F H 84 20 135/55 L 94 L Room Air 03/24/23 04:00 03/24/23 04:00 03/24/23 04:00 03/24/23 04:00 03/24/23 04:00 03/24/23 06:45 Laboratory Results - last 24 hr 03/24/23 06:20: WBC 16.2 H D, RBC 3.60 L, Hgb 10.2 L, Hct 32.2 L, MCV 89.3, MCH 28.3, MCHC 31.7 L, RDW 14.3, Plt Count 140 L, MPV 7.2 L, Neut % (Auto) 87.1 H, Lymph % (Auto) 6.6 L, [place] % (Auto) 5.9, Eos % (Auto) 0.4, Baso % (Auto) 0.1, Neut # (Auto) 14.1 H, Lymph # (Auto) 1.1, [place] # (Auto) 1.0, Eos # (Auto) 0.1, Baso # (Auto) 0.0, Sodium 136, Potassium 4.2, Chloride 103, Carbon Dioxide 32 H, Anion Gap 5.2, BUN 19 H D, Creatinine 0.90 D, Estimated Creat Clear 42, Estimated GFR 62, Est GFR ( Amer) 75 D, Glucose 104 H, Calcium 8.2 L I & O for Last 24 hours: Intake & Output 03/21/23 03/22/23 03/23/23 03/24/23 11:59 11:59 11:59 11:59 Intake Total 1400 / 1400 1436 / 1436 Output Total 500 / 500 550 / 550 Balance 900 / 900 886 / 886 Weight 104 lb 15.04 oz 109 lb 8 oz *Routine Respiratory Exam Comments: Congestion *Routine Abdominal Exam Abdominal: Present distended Progress Note: A&P Assessment and plan (1) Cecal volvulus: Status: Acute Assessment and plan: DC NG tube and [place]. Continue n.p.o. except ice chips. Chest x-ray due to leukocytosis, mild fever, congestion on exam. Monitor hemoglobin. (2) Status post colon resection: Status: Acute (3) Developmental delay, borderline: Status: Acute
--- NOTE | 2023-03-24 08:18 | PC.NURSE ---
COURTESY TECH NOTE; ROUNDED ON PT 0725, PT NPO W/ TUBE FEED, PT DENIED NEED FOR ASSISTANCE WITH RESTROOM, AND NEED TO REPOSITION IN BED. CALL LIGHT WITHIN REACH, NO FURTHER REQUESTS AT THIS TIME K ANTON, SRNA
[2023-03-24 08:42] LABS: Lymphocytes % 6 % (10-50); Monocytes % 1 % (2-9); Neutrophils % 93 % (42-76); Total Cells Counted 100
[2023-03-24 08:45] LABS: Platelet Estimate Slight Decrease; RBC Morphology Normal
--- NOTE | 2023-03-24 09:38 | DIET.NUTRFU ---
LUDY met with patient and caregiver this AM. Pt continues NPO currently, started ice chips and taking pills crushed in water. No BM yet and no gas reported by pt or caregiver. NGT has been removed. Caregiver reports consistent regular diet at home of 3 meals per day with snacks including milk, vegetables, fruit, prune juice. Pt only has bottom teeth, and eats quickly with minimal chewing requiring caregiver to cut all food up into small pieces. Pt does not use straws and becomes very anxious when any are present. Caregiver requests ground textures of solids when food is initiated to avoid choking and to provide all liquid foods in a cup so that she can drink it without use of utensils. Will serve soups in a mug. Caregiver reports pt had 20# wt loss in 2019 after removing fried foods from diet when she started experiencing rashes on trunk, head, and extremities. Pt's wt has been stable at 106# recently. Pt had no food allergies reported with exam by specialist and continues to experience rashes.
[2023-03-24 09:51] VITALS: BMI 26.4
--- NOTE | 2023-03-24 10:19 | SW/DCPLANNER ---
Addendum entered by Geno Quiñones 03/30/23 14:01: Patient's family has decided that she can go home w/ family assistance and home health for daily dressing changes. Chiqui ramirez/ [facility] stated that she can accept this patient and services will begin tomorrow. Patient will discharge home today. Addendum entered by Geno Quiñones 03/30/23 11:09: Patient will require daily dressing changes/packing. Per patient's sister she is not comfortable completing dressing changes at home and prefer I look into home health and ask if they come everyday for a private pay rate OR speak with [facility] outpatient department for dressing changes. I will be looking into both options this AM. Addendum entered by Geno Quiñones 03/25/23 07:37: Patient/family prefer to use [facility] at time of discharge. Original Note: I spoke with patient's Caregiver/Sister this AM regarding plans once medically stable for discharge. Sister stated that patient is doing much better this AM and was able to ambulate about 50 ft w/ PT. PT recommended home with home health services. Patient's sister is agreeable to home health services once medically stable for discharge. I will review agencies available for patient in [place] then review w/ sister. Discharge date is unknown at this time.
[2023-03-24 11:52] VITALS: BP 143/68; PULSE 76; RESP 18; TEMP 36.7; O2SAT 96
[2023-03-24 15:47] VITALS: BP 141/58; PULSE 78; RESP 18; TEMP 36.4; O2SAT 96
--- NOTE | 2023-03-24 16:49 | PC.NURSE ---
PT IS RESTING IN BED WITH FAMILY AT BEDSIDE. NONVERBAL HOWEVER VERY ALERT AND WILL FOLLOW COMMANDS. PT TOLERATED SITTING UP IN THE CHAIR FOR SEVERAL HOURS THIS SHIFT AND AMBULATED IN THE [place] WITH PHYSICAL THERAPY. PT HAS BEEN AMBULATING TO THE BATHROOM WITH 1 ASSIST. ABDOMEN SOFT/TENDER WITH HYPOACTIVE BOWEL SOUNDS. FAMILY STATES THEY HAVE NOT HEARD PT PASS FLATUS. DRESSING TO MIDLINE INCISION C/D/I. NO SWELLING NOTED TO BLE. NON PRODUCTIVE COUGH NOTED. VSS. WILL CONTINUE TO MONITOR.
[2023-03-24 20:00] VITALS: BP 139/70; PULSE 74; RESP 18; TEMP 36.6; O2SAT 97
[2023-03-25] VITALS (7 sets, daily range): BP systolic 129–148; BP diastolic 54–83; PULSE 72–94; RESP 18; TEMP 36.8–37.4; O2SAT 93–99; BMI 26.6; BMI 27.3
--- NOTE | 2023-03-25 05:08 | PC.NURSE ---
Patient has had a good night. Sat up in the chair for a while and then walked to the bathroom a couple of time. Patient did get a bed bath. Dressing remains clean dry and intact. No other issues noted by family director customer
[2023-03-25 06:42] LABS: Basophils % 0.1 % (0.1-2.0); Eosinophils # 0.1 K/mm3 (0.0-0.4); Eosinophils % 0.8 % (0.1-12.0); Hematocrit 28.7 % (37.0-47.0); Hemoglobin 9.2 g/dL (12.2-16.2); Lymphocytes # 0.8 K/mm3 (0.7-4.5); Lymphocytes % 6.6 % (10-50); Mean Corpuscular HGB Conc 32.2 g/dL (31.8-35.4); Mean Platelet Volume 7.5 fl (7.4-10.4); Monocytes # 0.5 K/mm3 (0.1-1.0); Neutrophils # 11.4 K/mm3 (1.8-7.8); Neutrophils % 88.6 % (37.0-80.0); Platelet Count 120 K/mm3 (142-424); Red Blood Count 3.19 M/mm3 (4.20-5.40); Red Cell Distribution Width 14.1 % (11.5-17.5); White Blood Count 12.8 K/mm3 (4.8-10.8)
[2023-03-25 06:44] LABS: MANUAL DIFFERENTIAL MANUAL DIFFERENTIAL (MANUAL DIFF)
[2023-03-25 06:50] LABS: Anion Gap 9.1 mEq/L (5-15); Blood Urea Nitrogen 25 mg/dl (7-17); Calcium 8.1 mg/dl (8.4-10.2); Carbon Dioxide 28 mmol/L (22.0-30.0); Chloride 106 mmol/L (98-107); Creatinine Clearance Estimated 42 mL/min (50-200); Estimated Glomerular Filt Rate 55 ml/min (>60); GFR (African American) 67 ML/MIN (>60); Glucose 71 mg/dl (74-100); Potassium 4.1 mmoL/L (3.5-5.1); Sodium 139 mmol/L (136-145)
[2023-03-25 07:29] LABS: Eosinophils % 1 % (0-3); Lymphocytes % 7 % (10-50); Monocytes % 3 % (2-9); Neutrophils % 89 % (42-76); Platelet Estimate Slight Decrease; RBC Morphology Normal; Total Cells Counted 100
--- NOTE | 2023-03-25 07:30 | EXP.PN ---
Subjective *Date: 03/25/23 *Time: 17:10 Interval history: CBC with 13K WBCs, decreased from 16K CMP with Cr 1.0, increased from 0.9 Mg 2.0 CXR - free intra- abdominal air under the right hemidiaphragm No acute events overnight. Exam Data for Last 24 hours Vital signs and Labs for Last 24 Hours: Temp Pulse Resp BP Pulse Ox O2 Del Method 99.1 F 94 H 18 144/83 H 93 L Room Air 03/25/23 04:00 03/25/23 04:00 03/25/23 04:00 03/25/23 04:00 03/25/23 04:00 03/25/23 06:48 Laboratory Results - last 24 hr 03/24/23 06:20: WBC 16.2 H D, RBC 3.60 L, Hgb 10.2 L, Hct 32.2 L, MCV 89.3, MCH 28.3, MCHC 31.7 L, RDW 14.3, Plt Count 140 L, MPV 7.2 L, Neut % (Auto) 87.1 H, Lymph % (Auto) 6.6 L, [place] % (Auto) 5.9, Eos % (Auto) 0.4, Baso % (Auto) 0.1, Neut # (Auto) 14.1 H, Lymph # (Auto) 1.1, [place] # (Auto) 1.0, Eos # (Auto) 0.1, Baso # (Auto) 0.0, Total Counted 100, Neutrophils % (Manual) 93 H, Lymphocytes % (Manual) 6 L, Monocytes % (Manual) 1 L, Platelet Estimate Slight decrease, RBC Morphology Normal 03/25/23 06:17: WBC 12.8 H, RBC 3.19 L, Hgb 9.2 L, Hct 28.7 L, MCV 90.0, MCH 29.0, MCHC 32.2, RDW 14.1, Plt Count 120 L, MPV 7.5, Neut % (Auto) 88.6 H, Lymph % (Auto) 6.6 L, [place] % (Auto) 4.0, Eos % (Auto) 0.8, Baso % (Auto) 0.1, Neut # (Auto) 11.4 H, Lymph # (Auto) 0.8, [place] # (Auto) 0.5, Eos # (Auto) 0.1, Baso # (Auto) 0.0, Total Counted 100, Neutrophils % (Manual) 89 H, Lymphocytes % (Manual) 7 L, Monocytes % (Manual) 3, Eosinophils % (Manual) 1, Platelet Estimate Slight decrease, RBC Morphology Normal, Sodium 139, Potassium 4.1, Chloride 106, Carbon Dioxide 28, Anion Gap 9.1, BUN 25 H D, Creatinine 1.00, Estimated Creat Clear 42, Estimated GFR 55 L, Est GFR ( Amer) 67, Glucose 71 L D, Calcium 8.1 L, Magnesium 2.0 I & O for Last 24 hours: Intake & Output 03/22/23 03/23/23 03/24/23 03/25/23 23:59 23:59 23:59 23:59 Intake Total 2836 / 2836 2552 / 2552 Output Total 600 / 600 900 / 900 0 / 0 Balance 2236 / 2236 1652 / 1652 0 / 0 Weight 47.627 kg 47.6 kg 49.668 kg 50 kg Constitutional Constitutional: no acute distress *Routine HEENT Exam Head: Present normocephalic Eye: Present EOMI and PERRL ENT: Present mucous membranes moist *Routine Neck Exam Neck: Present supple; Absent lymphadenopathy *Routine Respiratory Exam Respiratory: Present CTA bilaterally *Routine Cardiovascular Exam Cardiovascular: Present RRR *Routine Abdominal Exam Abdominal: Present soft Comments: abdominal dressing is c/d/i *Routine Extremities Exam Extremities: Absent cyanosis, clubbing or edema *Routine Skin Exam Skin: Present warm; Absent rash *Routine Neurological Exam Neurological: Present alert and oriented X3 Assessment and Plan *Assessment and plan (1) Cecal volvulus: Status: Acute Category: Medical Code(s): K56.2 - Volvulus (2) Status post colon resection: Status: Acute Category: Surgical Code(s): Z90.49 - Acquired absence of other specified parts of digestive tract (3) HTN (hypertension): Status: Acute Category: Medical Code(s): I10 - Essential (primary) hypertension (4) Autism: Status: Acute Category: Medical Code(s): F84.0 - Autistic disorder (5) Developmental delay, borderline: Status: Acute Category: Medical Code(s): R62.50 - Unspecified lack of expected normal physiological development in childhood Plan #cecal volvulus status post right hemicolectomy with ileocolic anastomosis POD#3 #htn #developmental delay Appreciate general surgery NGT and ford discontinued 03/24. continuing unasyn and LR @ 125mL/hr per General surgery CBC and BMP ordered for tomorrow morning DVT ppx: lovenox NPO ice chips only DNR
--- NOTE | 2023-03-25 08:17 | P.PN_ITS ---
Subjective Narrative: No new issues. Tolerated NG out and fell only. Leukocytosis improving. Hemoglobin 9.2. Exam Data for Last 24 hours Vital signs and Labs for Last 24 Hours: Temp Pulse Resp BP Pulse Ox O2 Del Method 98.5 F 75 18 146/73 H 95 Room Air 03/25/23 07:56 03/25/23 07:56 03/25/23 07:56 03/25/23 07:56 03/25/23 07:56 03/25/23 07:56 Laboratory Results - last 24 hr 03/24/23 06:20: Total Counted 100, Neutrophils % (Manual) 93 H, Lymphocytes % (Manual) 6 L, Monocytes % (Manual) 1 L, Platelet Estimate Slight decrease, RBC Morphology Normal 03/25/23 06:17: WBC 12.8 H, RBC 3.19 L, Hgb 9.2 L, Hct 28.7 L, MCV 90.0, MCH 29.0, MCHC 32.2, RDW 14.1, Plt Count 120 L, MPV 7.5, Neut % (Auto) 88.6 H, Lymph % (Auto) 6.6 L, [place] % (Auto) 4.0, Eos % (Auto) 0.8, Baso % (Auto) 0.1, Neut # (Auto) 11.4 H, Lymph # (Auto) 0.8, [place] # (Auto) 0.5, Eos # (Auto) 0.1, Baso # (Auto) 0.0, Total Counted 100, Neutrophils % (Manual) 89 H, Lymphocytes % (Manual) 7 L, Monocytes % (Manual) 3, Eosinophils % (Manual) 1, Platelet Estimate Slight decrease, RBC Morphology Normal, Sodium 139, Potassium 4.1, Chloride 106, Carbon Dioxide 28, Anion Gap 9.1, BUN 25 H D, Creatinine 1.00, Estimated Creat Clear 42, Estimated GFR 55 L, Est GFR ( Amer) 67, Glucose 71 L D, Calcium 8.1 L, Magnesium 2.0 I & O for Last 24 hours: Intake & Output 03/22/23 03/23/23 03/24/23 03/25/23 11:59 11:59 11:59 11:59 Intake Total 1400 / 1400 1436 / 1436 2552 / 2552 Output Total 500 / 500 550 / 550 450 / 450 Balance 900 / 900 886 / 886 2102 / 210 Weight 104 lb 15.04 oz 109 lb 7.987 oz 110 lb 3.698 oz *Routine Abdominal Exam Abdominal: Present distended; Absent tenderness Progress Note: A&P Assessment and plan (1) Cecal volvulus: Status: Acute Assessment and plan: Still appears to have somewhat of an ileus. Continue ice chips only. Hopefully try sips of clears soon. Hemoglobin has shown some slow decrease. Continue to monitor. Leukocytosis improved. (2) Status post colon resection: Status: Acute (3) HTN (hypertension): Status: Acute (4) Autism: Status: Acute (5) Developmental delay, borderline: Status: Acute
--- NOTE | 2023-03-25 08:17 | PC.NURSE ---
COURTESY TECH NOTE; ROUNDED ON PT 0725, PT DENIED NEED FOR ASSISTANCE WITH RESTROOM AND NEED TO REPOSITION IN BED. FAMILY MEMBER AT BEDSIDE WITH PT. CALL LIGHT WITHIN REACH, NO FURTHER REQUESTS AT THIS TIME [facility]
--- NOTE | 2023-03-25 12:57 | PC.NURSE ---
Small amount of bleeding at the belly button after home care giver took the patient for a walk. No open areas noted. 2x2, non adhesive placed with a tegaderm.
[2023-03-26] VITALS: BP 136/65; PULSE 87; RESP 19; TEMP 36.8; O2SAT 99
--- NOTE | 2023-03-26 03:02 | PC.NURSE ---
PATIENT HAD BOWEL SURGERYON 03/23. BOWEL SOUNDS PRESENT. ABDOMEN MILDLY DISTENDED, SOFT. HAS NOT HAD A BM AND IS NOT PASSING GAS. MIDLINE INCISION EDGES APPROXIMATED, STEF INTACT. HAS A SURGICAL DRESSING WITH OPSITE WITH OLD BLOODY DRAINAGE PRESENT.HAS WALKED IN THE DAV[place] WAY AND TOLERATED WELL. REMAINS NPO EXCEPT ICE CHIPS. PATIENT IS NONVERBAL BUT IS ABLE TO WRITE ON HER PAD HER NAME AND PLACE. SISTER STAYS WITH THE PATIENT AND ASSIST WITH HER NEEDS. HAD A BATH TONIGHT.
[2023-03-26 04:00] VITALS: BP 138/65; PULSE 88; RESP 19; TEMP 36.8; O2SAT 94; BMI 30.8
[2023-03-26 06:42] LABS: Basophils % 0.1 % (0.1-2.0); Eosinophils # 0.3 K/mm3 (0.0-0.4); Eosinophils % 2.5 % (0.1-12.0); Hematocrit 27.4 % (37.0-47.0); Hemoglobin 8.8 g/dL (12.2-16.2); Lymphocytes % 9.4 % (10-50); Mean Corpuscular HGB Conc 32.1 g/dL (31.8-35.4); Mean Corpuscular Hemoglobin 28.8 pg (27.0-31.2); Mean Corpuscular Volume 89.8 fl (81-99); Mean Platelet Volume 8.2 fl (7.4-10.4); Monocytes # 0.5 K/mm3 (0.1-1.0); Monocytes % 4.4 % (1.7-9.3); Neutrophils # 9.1 K/mm3 (1.8-7.8); Neutrophils % 83.6 % (37.0-80.0); Platelet Count 138 K/mm3 (142-424); Red Blood Count 3.05 M/mm3 (4.20-5.40); Red Cell Distribution Width 14.1 % (11.5-17.5); White Blood Count 10.9 K/mm3 (4.8-10.8)
[2023-03-26 06:55] LABS: Blood Urea Nitrogen 31 mg/dl (7-17); Carbon Dioxide 23 mmol/L (22.0-30.0); Chloride 107 mmol/L (98-107); Creatinine Clearance Estimated 49 mL/min (50-200); Estimated Glomerular Filt Rate 55 ml/min (>60); GFR (African American) 67 ML/MIN (>60); Glucose 65 mg/dl (74-100); Sodium 141 mmol/L (136-145)
[2023-03-26 07:21] VITALS: BP 134/70; PULSE 74; RESP 16; TEMP 36.4; O2SAT 95
--- NOTE | 2023-03-26 07:44 | EXP.ACUTE.PN ---
Subjective *Date: 03/26/23 *Time: 13:07 Interval history: 68 year old female With history of cognitive impairment due to developmental delay/autism, nonverbal at baseline, history of hypertension who presented to ER On 03/23/2023 with complaints of abdominal pain and decreased oral intake, CT showed cecal volvulus. Status post emergent laparotomy and right colectomy with ileocecal anastomosis by general surgery, admitted for further management. Updates on 03/26/23 - hb/hct dropped from 9.2-->8.8/27.4 - Mild drop in plt count , today 138 - WBC improved 12.9-->10.9 - Blood sugars trending down due to n.p.o. status Subjective: Per sister patient ambulating okay. She is urinating okay. No bowel movements yet. Not complaining of any significant pain. Medical Exam Vital signs and Labs for Last 24 Hours: Vital Signs Temp Pulse Resp BP Pulse Ox O2 Del Method 03/26/23 07:21 97.6 F 74 16 134/70 95 Room Air 03/26/23 06:29 Room Air 03/26/23 05:00 Room Air 03/26/23 04:00 98.3 F 88 19 138/65 94 L Room Air 03/26/23 02:52 Room Air 03/26/23 00:49 Room Air 03/26/23 00:00 98.3 F 87 19 136/65 99 Room Air 03/25/23 23:00 Room Air 03/25/23 21:00 Room Air 03/25/23 20:00 97 Room Air 03/25/23 20:00 98.2 F 73 18 134/62 97 Room Air 03/25/23 17:47 Room Air 03/25/23 16:22 Room Air 03/25/23 16:00 98.6 F 80 18 129/54 L 96 Room Air 03/25/23 14:31 Room Air 03/25/23 11:56 Room Air 03/25/23 11:53 98.8 F 72 18 144/65 H 97 Room Air 03/25/23 10:04 Room Air 03/25/23 08:46 Room Air 03/25/23 08:00 99 Room Air 03/25/23 07:56 98.5 F 75 18 146/73 H 95 Room Air Intake and Output 03/25/23 03/25/2303/26/23 15:59 23:59 07:59 Intake Total 1200 / 1300 1675 / 1675 Output Total 0 / 1 Balance 1200 / 1299 -1 / 1299 1674 / 1674 Intake: Intake, Oral Amount 0 / 0 Intake, Total IV Amount 1200 / 1300 1675 / 1675 Ampicillin/Sulbactam 3 gm In 0. 200 / 300 300 / 300 9 % Sodium Chloride 100 ml @ 200 mls/hr IV Q6H DILIA Rx#: [id number] Lactated Ringers 1000ML 1,000 1000 / 1000 1375 / 1375 ml @ 125 mls/hr IV .Q8H DILIA Rx# :[id number] Output: Output, Urine Amount 0 / 1 Other: Number of Unmeasured Voids Weight 51.313 kg 57.924 kg Patient Weight 03/26/23 23:59 Weight 57.924 kg Laboratory Results - last 24 hr 03/26/23 06:30: WBC 10.9 H, RBC 3.05 L, Hgb 8.8 L, Hct 27.4 L, MCV 89.8, MCH 28.8, MCHC 32.1, RDW 14.1, Plt Count 138 L, MPV 8.2, Neut % (Auto) 83.6 H, Lymph % (Auto) 9.4 L, [place] % (Auto) 4.4, Eos % (Auto) 2.5, Baso % (Auto) 0.1, Neut # (Auto) 9.1 H, Lymph # (Auto) 1.0, [place] # (Auto) 0.5, Eos # (Auto) 0.3, Baso # (Auto) 0.0, Sodium 141, Potassium 4.0, Chloride 107, Carbon Dioxide 23, Anion Gap 15.0, BUN 31 H, Creatinine 1.00, Estimated Creat Clear 49, Estimated GFR 55 L, Est GFR ( Amer) 67, Glucose 65 L, Calcium 8.0 L I & O for Labs for Last 24 Hours: Intake & Output 03/23/23 03/24/23 03/25/23 03/26/23 23:59 23:59 23:59 23:59 Intake Total 2836 / 2836 2552 / 2552 1200 / 1300 1675 / 1675 Output Total 600 / 600 900 / 900 Balance 2236 / 2236 1652 / 1652 1199 / 1299 1674 / 1674 Weight 47.6 kg 49.668 kg 51.313 kg 57.924 kg Constitutional: Present no acute distress and cooperative Head: Present atraumatic and normocephalic ENT: Present mucous membranes moist Respiratory: Present symmetric chest movement Cardiac: Present Reg Rate and Rhythm GI: Present distention, tenderness, hypoactive bowel sounds and incision (some bleeding to the surgical dressing noted. ) Extremities: Present edema (1+ dependent edema B/L LE ) Comment:: Cognitive impairment/developmental delay at baseline a detailed neuro exam could not be performed. No facial asymmetry. Follows commands but only responds to questions asked by the sister. Assessment and Pl
--- NOTE | 2023-03-26 09:24 | P.PN_ITS ---
Subjective *Date: 03/26/23 *Time: 09:24 Medical Exam Vital signs and Labs for Last 24 Hours: Vital Signs Temp Pulse Resp BP Pulse Ox O2 Del Method 03/26/23 07:21 97.6 F 74 16 134/70 95 Room Air 03/26/23 06:29 Room Air 03/26/23 05:00 Room Air 03/26/23 04:00 98.3 F 88 19 138/65 94 L Room Air 03/26/23 02:52 Room Air 03/26/23 00:49 Room Air 03/26/23 00:00 98.3 F 87 19 136/65 99 Room Air 03/25/23 23:00 Room Air 03/25/23 21:00 Room Air 03/25/23 20:00 97 Room Air 03/25/23 20:00 98.2 F 73 18 134/62 97 Room Air 03/25/23 17:47 Room Air 03/25/23 16:22 Room Air 03/25/23 16:00 98.6 F 80 18 129/54 L 96 Room Air 03/25/23 14:31 Room Air 03/25/23 11:56 Room Air 03/25/23 11:53 98.8 F 72 18 144/65 H 97 Room Air 03/25/23 10:04 Room Air Intake and Output 03/25/23 03/26/23 03/26/23 23:59 07:59 15:59 Intake Total 1675 / 1675 Output Total Balance - 1299 1674 / 1674 Intake: Intake, Oral Amount 0 / 0 Intake, Total IV Amount 1675 / 1675 Ampicillin/Sulbactam 3 gm In 0. 300 / 300 9 % Sodium Chloride 100 ml @ 200 mls/hr IV Q6H DILIA Rx#: [id number] Lactated Ringers 1000ML 1,000 1375 / 1375 ml @ 125 mls/hr IV .Q8H DILIA Rx# :[id number] Output: Output, Urine Amount Other: Number of Unmeasured Voids 1 2 Weight 57.924 kg Patient Weight 03/26/23 23:59 Weight 57.924 kg Laboratory Results - last 24 hr 03/26/23 06:30: WBC 10.9 H, RBC 3.05 L, Hgb 8.8 L, Hct 27.4 L, MCV 89.8, MCH 28.8, MCHC 32.1, RDW 14.1, Plt Count 138 L, MPV 8.2, Neut % (Auto) 83.6 H, Lymph % (Auto) 9.4 L, [place] % (Auto) 4.4, Eos % (Auto) 2.5, Baso % (Auto) 0.1, Neut # (Auto) 9.1 H, Lymph # (Auto) 1.0, [place] # (Auto) 0.5, Eos # (Auto) 0.3, Baso # (Auto) 0.0, Sodium 141, Potassium 4.0, Chloride 107, Carbon Dioxide 23, Anion G ap 15.0, BUN 31 H, Creatinine 1.00, Estimated Creat Clear 49, Estimated GFR 55 L , Est GFR ( Amer) 67, Glucose 65 L, Calcium 8.0 L I & O for Labs for Last 24 Hours: Intake & Output 03/23/23 03/24/23 03/25/23 03/26/23 23:59 23:59 23:59 23:59 Intake Total 2836 / 2836 2552 / 2552 1200 / 1300 1675 / 1675 Output Total 600 / 600 900 / 900 Balance 2236 / 2236 1652 / 1652 1199 / 1299 1674 / 1674 Weight 47.6 kg 49.668 kg 51.313 kg 57.924 kg The patient's infection will respond to the chosen ABx?: Yes (VOLVULUS, NO SPECIMAN, WBC TRENDING DOWN, AFEBRILE) Is the patient receiving the right drug, dose, and route?: Yes Could a more targeted ABx be ordered?: No
[2023-03-26 11:06] VITALS: BP 167/91; PULSE 70; RESP 16; TEMP 36.6; O2SAT 98
--- NOTE | 2023-03-26 13:32 | PC.NURSE ---
Pt has ambulated in hallway and to toilet. Has tolerated well. Family states that PT told her that pt burped while ambulating in hallway with her. Not observed by this nurse. BS hypoactive. No BM yet. DSG to abdomen changed. Small blood noted around incision site that appeared to be clotting off. No drainage noted to DSG since changed. Family remains at bedside.
[2023-03-26 14:10] LABS: POC Glucose,Bedside 102 (70-110)
[2023-03-26 14:55] VITALS: BP 149/69; PULSE 74; RESP 16; TEMP 36.8; O2SAT 97
--- NOTE | 2023-03-26 15:15 | EXP.SURG.PN ---
Subjective Narrative: No new complaints since yesterday. Her sister was in the room and gave most of the history. No reported flatus or bowel movements. The patient has been walking every [address] to the end of the [place]. No vomiting. The sister is concerned that the patient has not made enough urine and that her abdomen is distended. Exam Data for Last 24 hours Vital signs and Labs for Last 24 Hours: Temp Pulse Resp BP Pulse Ox O2 Del Method O2 Flow Rate 98.3 F 74 16 149/69 H 97 Room Air 25 03/26/23 14:55 03/26/23 14:55 03/26/23 14:55 03/26/23 14:55 03/26/23 14:55 03/26/23 14:55 03/26/23 14:47 Laboratory Results - last 24 hr 03/26/23 06:30: WBC 10.9 H, RBC 3.05 L, Hgb 8.8 L, Hct 27.4 L, MCV 89.8, MCH 28.8, MCHC 32.1, RDW 14.1, Plt Count 138 L, MPV 8.2, Neut % (Auto) 83.6 H, Lymph % (Auto) 9.4 L, [place] % (Auto) 4.4, Eos % (Auto) 2.5, Baso % (Auto) 0.1, Neut # (Auto) 9.1 H, Lymph # (Auto) 1.0, [place] # (Auto) 0.5, Eos # (Auto) 0.3, Baso # (Auto) 0.0, Sodium 141, Potassium 4.0, Chloride 107, Carbon Dioxide 23, Anion Gap 15.0, BUN 31 H, Creatinine 1.00, Estimated Creat Clear 49, Estimated GFR 55 L, Est GFR ( Amer) 67, Glucose 65 L, Calcium 8.0 L 03/26/23 14:03: POC Glucose 102 I & O for Last 24 hours: Intake & Output 03/23/23 03/24/23 03/25/23 03/26/23 23:59 23:59 23:59 23:59 Intake Total 2836 / 2836 2552 / 2552 1200 / 1300 1675 / 1675 Output Total 600 / 600 900 / 900 Balance 2236 / 2236 1652 / 1652 1199 / 1299 1674 / 1674 Weight 104 lb 15.04 oz 109 lb 7.987 oz 113 lb 2 oz 127 lb 11.2 oz Constitutional Constitutional: no acute distress *Routine Respiratory Exam Respiratory: Present CTA bilaterally; Absent accessory muscle use *Routine Cardiovascular Exam Cardiovascular: Present RRR *Routine Abdominal Exam Comments: Hyperactive bowel sounds. Hyperactive bowel sounds. Midline incision with ila. Dressing at the lower pole of wound is clean and dry (had some drainage earlier). Moderately distended, soft, nontender. Progress Note: A&P Assessment and plan (1) Cecal volvulus: Status: Acute Assessment and plan: Postoperative day 3 status post sick ectomy. Awaiting return of bowel function. Per discussion with her sister, she would like to avoid any potential vomiting overnight. She has good bowel sounds, but still has some distention and has not passed any flatus. We will wait until tomorrow to initiate clear liquid diet. (2) Status post colon resection: Status: Acute (3) HTN (hypertension): Status: Acute (4) Developmental delay, borderline: Status: Acute (5) Anemia associated with acute blood loss: Status: Acute Assessment and plan: Hemoglobin continues to drift down. Preop hemoglobin was 13.5, and she drifted to 10.2, the 9.2, and 8.8 today. Recheck in the morning. Type and screen with a.m. labs. Hold next Lovenox dose. (6) Neutrophilic leukocytosis: Status: Acute (7) Hypoglycemia: Status: Acute
[2023-03-26 20:00] VITALS: BP 152/72; PULSE 67; RESP 18; TEMP 36.8; O2SAT 98
[2023-03-26 20:41] LABS: POC Glucose,Bedside 114 (70-110)
[2023-03-27] VITALS: BP 164/77; PULSE 79; RESP 19; TEMP 36.9; O2SAT 97
[2023-03-27 04:00] VITALS: BP 143/67; PULSE 84; RESP 19; TEMP 37.1; O2SAT 96; BMI 31.6
[2023-03-27 05:45] LABS: POC Glucose,Bedside 162 (70-110)
--- NOTE | 2023-03-27 05:55 | PC.NURSE ---
PATIENT PULLED IV OUT AT 0600. ORIENTED TO PERSON/PLACE. ABDOMEN MILDLY DISTENDED. DRSG TO LOWER HALF OF MIDLINE INCISION INTACT WITH SMALL AMT OF SEROSANGUINOUS DRAINAGE. STEF INTACT. NO S/S OF INFECTION. WOUND EDGES APPROXIMATED. PATIENT IS PASSING GAS BUT HAS NOT HAD A BM SINCE HER SURGERY. SISTER IS PRIMARY CAREGIVER AT IS AT THE BEDSIDE. BED ALARM ACTIVATED FOR SASFETY.
--- NOTE | 2023-03-27 06:12 | PC.NURSE ---
PATIENT HAS INCREASE BRUISING ALONG THE INCISION. REBECCA Morgan NP NOTIFIED AND EXAMINED PATIENT. INCISION REDRESSED WITH GAUZE AND TEGADERM.
--- NOTE | 2023-03-27 06:36 | PC.NURSE ---
#22 ANGIOCATH PLACED IN RFA, IVFs RESUMED AT 125 ML/HR/PUMP.
[2023-03-27 06:54] LABS: Hematocrit 25.1 % (37.0-47.0); Hemoglobin 7.9 g/dL (12.2-16.2)
[2023-03-27 07:29] VITALS: BP 153/70; PULSE 73; RESP 16; TEMP 36.3; O2SAT 97
--- NOTE | 2023-03-27 07:45 | EXP.ACUTE.PN ---
Subjective *Date: 03/27/23 *Time: 14:29 Interval history: Blood pressure in the 150s to 160s systolic persistent Hypoglycemia resolved Reviewed plan of care from surgeon, if bowel function returns today to try clear liquids Some bleeding at the dressing site, dressing change overnight Drop in hemoglobin from 8.8--> 7.7 Subjective: Started on clears today morning and tolerating No other complaints Medical Exam Vital signs and Labs for Last 24 Hours: Vital Signs Temp Pulse Resp BP Pulse Ox O2 Del Method O2 Flow Rate 03/27/23 07:29 97.4 F L 73 16 153/70 H 97 Room Air 03/27/23 06:37 Room Air 03/27/23 04:00 98.7 F 84 19 143/67 H 96 Room Air 03/27/23 03:00 Room Air 03/27/23 00:57 Room Air 03/27/23 00:00 98.5 F 79 19 164/77 H 97 Room Air 03/26/23 23:00 Room Air 03/26/23 21:00 Room Air 03/26/23 20:00 98 Room Air 03/26/23 20:00 98.2 F 67 18 152/72 H 98 Room Air 03/26/23 18:47 Room Air 03/26/23 17:00 Room Air 03/26/23 14:55 98.3 F 74 16 149/69 H 97 Room Air 03/26/23 14:47 Vapotherm 25 03/26/23 13:00 Room Air 03/26/23 11:00 Room Air 03/26/23 09:00 Room Air 03/26/23 08:00 Room Air 03/26/23 11:06 97.9 F 70 16 167/91 H 98 Room Air Intake and Output 03/26/23 03/26/23 03/27/23 15:59 23:59 07:59 Intake Total 0 2524 1500 / 1500 Output Total 0 / 2 1 / 2 0 / 0 Balance 2522 -2522 1500 / 1500 Intake: Intake, Oral Amount 0 / 0 0 / 0 Intake, Total IV Amount 1500 / 1500 Ampicillin/Sulbactam 3 gm In 0. 200 / 200 9 % Sodium Chloride 100 ml @ 200 mls/hr IV Q6H [facility] Rx#: [id number] Dextrose 5%-Lactated Ringers 1, 1300 / 1300 000 ml @ 125 mls/hr IV .Q8H [facility] Rx#:[id number] Output: Output, Urine Amount 0 / 2 1 / 2 0 / 0 Other: Number of Voids 1 Number of Unmeasured Voids 1 1 1 Weight 59.285 kg Patient Weight 03/27/23 23:59 Weight 59.285 kg Laboratory Results - last 24 hr 03/26/23 14:03: POC Glucose 102 03/26/23 20:29: POC Glucose 114 H 03/27/23 04:47: POC Glucose 162 H 03/27/23 06:41: Hgb 7.9 L, Hct 25.1 L I & O for Labs for Last 24 Hours: Intake & Output 03/24/23 03/25/23 03/26/23 03/27/23 23:59 23:59 23:59 23:59 Intake Total 2552 / 2552 1200 / 1300 1675 / 2525 1500 / 1500 Output Total 900 / 900 1 / 1 2 / 2 0 / 0 Balance 1652 / 1652 1199 / 1299 1673 / 2523 1500 / 1500 Weight 49.668 kg 51.313 kg 57.924 kg 59.285 kg Head: Present atraumatic and normocephalic Neck: Present normal inspection Respiratory: Present diminished air movement and normal respiratory effort Comment:: Nonverbal to me but follows commands or questions asked by sister Cardiac: Present Reg Rate and Rhythm GI: Present soft, distention and normal bowel sounds Comments:: Minimal tenderness around the laparotomy suture sites, some bloody soakage noted on the dressing but no active bleeding seen Rectal (female): Present deferred (female): Present deferred Comment:: Minimal pitting edema of bilateral lower extremities Skin: Present intact Neuro: Present alert Comment:: Nonverbal to me. Assessment and Plan *Assessment and plan (1) Cecal volvulus: Status: Acute Category: Surgical Code(s): K56.2 - Volvulus (2) Status post colon resection: Problem Comment: Continue clear liquid diet. She has reportedly passed flatus and continues to have bowel sounds. Status: Acute Category: Surgical Code(s): Z90.49 - Acquired absence of other specified parts of digestive tract (3) Anemia associated with acute blood loss: Status: Acute Category: Medical Code(s): D62 - Acute posthemorrhagic anemia (4) Hypoglycemia: Status: Acute Category: Medical Code(s): E16.2 - Hypoglycemia, unspecified (5) Neutrophilic leukocytosis: Status: Acute Category: Medical
--- NOTE | 2023-03-27 08:20 | PC.NURSE ---
Blood noted to abdominal DSG. New DSG applied.
[2023-03-27 10:10] LABS: Chloride 109 mmol/L (98-107)
[2023-03-27 10:15] LABS: Potassium 3.6 mmoL/L (3.5-5.1); Sodium 141 mmol/L (136-145)
[2023-03-27 10:18] LABS: Anion Gap 6.6 mEq/L (5-15); Blood Urea Nitrogen 22 mg/dl (7-17); Carbon Dioxide 29 mmol/L (22.0-30.0); Creatinine Clearance Estimated 50 mL/min (50-200); Estimated Glomerular Filt Rate 71 ml/min (>60); GFR (African American) 86 ML/MIN (>60)
[2023-03-27 10:19] LABS: Calcium 7.3 mg/dl (8.4-10.2); Glucose 123 mg/dl (74-100)
--- NOTE | 2023-03-27 10:25 | EXP.SURG.PN ---
Subjective Narrative: No acute events overnight. Her sister reports that she smelled flatus, although she did not hear any. Had not had any bowel movements until just after I rounded, when she passed a toilet bowl full of blood, which I saw. Had clear liquids for breakfast without any vomiting. Hemoglobin continues to drift down to 7.9 this morning, which represents an almost 1 gram drop from yesterday. Vital signs have been normal. Her sister showed me a picture of her wound dressing from earlier this morning, when it had been completely saturated with blood and clots. Exam Data for Last 24 hours Vital signs and Labs for Last 24 Hours: Temp Pulse Resp BP Pulse Ox O2 Del Method O2 Flow Rate 97.4 F L 73 16 153/70 H 97 Room Air 25 03/27/23 07:29 03/27/23 07:29 03/27/23 07:29 03/27/23 07:29 03/27/23 07:29 03/27/23 08:00 03/26/23 14:47 Laboratory Results - last 24 hr 03/26/23 14:03: POC Glucose 102 03/26/23 20:29: POC Glucose 114 H 03/27/23 04:47: POC Glucose 162 H 03/27/23 06:41: Hgb 7.9 L, Hct 25.1 L, Sodium 141, Potassium 3.6, Chloride 109 H, Carbon Dioxide 29, Anion Gap 6.6, BUN 22 H D, Creatinine 0.80, Estimated Creat Clear 50, Estimated GFR 71, Est GFR ( Amer) 86 D, Glucose 123 H, Calcium 7.3 L I & O for Last 24 hours: Intake & Output 03/24/23 03/25/23 03/26/23 03/27/23 23:59 23:59 23:59 23:59 Intake Total 2552 / 2552 1200 / 1300 1675 / 2525 1979 Output Total 900 / 900 / 2 / 2 0 / 0 Balance 1652 / 1652 1199 / 1299 167 / 2522 Weight 109 lb 7.987 oz 113 lb 2 oz 127 lb 11.2 oz 130 lb 11.2 oz Constitutional Constitutional: no acute distress *Routine Respiratory Exam Respiratory: Present CTA bilaterally; Absent accessory muscle use *Routine Cardiovascular Exam Cardiovascular: Present RRR *Routine Abdominal Exam Comments: Mildly distended. Midline incision with ila with no surrounding erythema or fluctuance. I removed the slightly saturated dressing over the lower part of the wound. There was extensive bruising around the wound and clots and fresh heme overlying the ila.Normal bowel sounds. Progress Note: A&P Assessment and plan (1) Cecal volvulus: Status: Acute (2) Status post colon resection: Problem details: Continue clear liquid diet. She has reportedly passed flatus and continues to have bowel sounds. Status: Acute (3) HTN (hypertension): Status: Acute (4) Developmental delay, borderline: Status: Acute (5) Anemia associated with acute blood loss: Status: Acute Assessment and plan: Hemoglobin drifted down more today. Lovenox has been held since yesterday morning. She is apparently having some blood loss into a wound hematoma and also hematochezia. Suspect some bleeding at the anastomosis, which would typically be self-limited. Type and cross 2 units of blood, to be given for any further drop in hemoglobin. Recheck hemoglobin at noon. I performed a wound exploration at the bedside. I removed the ila from the lower half of the incision, and then bluntly opened the skin. There was only a small amount of clot under the skin, and no active oozing, welling, or spurting of blood. There appeared to be a layer of deep dermal sutures, and I did not disturb this layer. It is possible she does have some bleeding that is deep to this, and if her wound continues to ooze, then I would open the wound down to the fascia. The wound was repacked with dry gauze dressing and an ABD pad. (6) Neutrophilic leukocytosis: Status: Acute (7) Hypoglycemia: Status: Acute
[2023-03-27 11:03] VITALS: BP 153/85; PULSE 74; RESP 16; TEMP 36.5; O2SAT 97
--- NOTE | 2023-03-27 11:03 | PC.NURSE ---
Notified by lab that pt's ordered units of PRBC's will have to be radiated per KBC.
[2023-03-27 11:19] LABS: Basophils % 0.1 % (0.1-2.0); Eosinophils # 0.5 K/mm3 (0.0-0.4); Eosinophils % 5.8 % (0.1-12.0); Hematocrit 26.8 % (37.0-47.0); Hemoglobin 8.4 g/dL (12.2-16.2); Lymphocytes # 0.7 K/mm3 (0.7-4.5); Lymphocytes % 7.8 % (10-50); Mean Corpuscular HGB Conc 31.5 g/dL (31.8-35.4); Mean Corpuscular Hemoglobin 28.5 pg (27.0-31.2); Mean Corpuscular Volume 90.6 fl (81-99); Mean Platelet Volume 7.4 fl (7.4-10.4); Monocytes # 0.5 K/mm3 (0.1-1.0); Monocytes % 5.4 % (1.7-9.3); Neutrophils # 7.6 K/mm3 (1.8-7.8); Neutrophils % 80.9 % (37.0-80.0); Platelet Count 192 K/mm3 (142-424); Red Blood Count 2.96 M/mm3 (4.20-5.40); Red Cell Distribution Width 13.9 % (11.5-17.5); White Blood Count 9.3 K/mm3 (4.8-10.8)
[2023-03-27 11:49] LABS: POC Glucose,Bedside 177 (70-110)
[2023-03-27 15:08] VITALS: BP 155/94; PULSE 78; RESP 16; TEMP 36.5; O2SAT 97
[2023-03-27 17:18] LABS: POC Glucose,Bedside 115 (70-110)
--- NOTE | 2023-03-27 17:37 | PC.NURSE ---
Spoke with MD Mccullough. For repeat 1899 H&H. Transfuse PRBC's if Hgb is below 8.0. Pt has had 3 loose stools with blood noted this shift. MD sheriff. Stools have decreased over the shift with less blood noted. Lovenox on hold. DSG is C/D/I. Pt has ambulated in hallway and in room this shift with assist x1. Family remains at bedside.
[2023-03-27 20:00] VITALS: BP 152/71; PULSE 71; RESP 18; TEMP 36.7; O2SAT 97; O2SAT 98
[2023-03-27 20:11] LABS: Hematocrit 25.4 % (37.0-47.0); Hemoglobin 7.9 g/dL (12.2-16.2)
[2023-03-27 21:29] LABS: POC Glucose,Bedside 134 (70-110)
[2023-03-28] VITALS (25 sets, daily range): BP systolic 91–183; BP diastolic 42–94; PULSE 61–80; RESP 16–22; TEMP 36.1–36.9; O2SAT 6–100; BMI 31.6
--- NOTE | 2023-03-28 02:59 | PC.NURSE ---
FIRST UNIT OF PRBCs INFUSED W/O DIFFICULTY. NO S/S OF TRANSFUSION REACTION. 1 HR POST TRANSFUSION H&H ORDERED FOR 0335. IF HgB < 8 INSTRUCTED TO TRANSFUSE 2 ND UNIT PER REBECCA Morgan NP.
[2023-03-28 05:34] LABS: POC Glucose,Bedside 108 (70-110)
--- NOTE | 2023-03-28 07:02 | PC.NURSE ---
DR LY HERE AND SAW PATIENT. PATIENT RECEIVED 2 UNITS PRBCs . NO S/S OF TRANSFUSION REACTION. SISTER AT BED SIDE. DRSG C/D/I TO ABDOMEN. PASSING LG AMTS OF GAS. HAS HAD 1 SMALL STOOL AND 1 LG LIQ STOOL WITH BLOOD.
--- NOTE | 2023-03-28 07:10 | EXP.SURG.PN ---
Subjective Narrative: The patient's family members report that she has been quite weak over the past few days . She is receiving her second unit of packed red blood cells for anemia-associated weakness. Exam Data for Last 24 hours Vital signs and Labs for Last 24 Hours: Temp Pulse Resp BP Pulse Ox O2 Del Method O2 Flow Rate 98.0 F 67 20 137/69 95 Room Air 25 03/28/23 06:50 03/28/23 06:50 03/28/23 06:50 03/28/23 06:50 03/28/23 06:50 03/28/23 06:43 03/26/23 14:47 Laboratory Results - last 24 hr 03/27/23 06:41: Sodium 141, Potassium 3.6, Chloride 109 H, Carbon Dioxide 29, Anion Gap 6.6, BUN 22 H D, Creatinine 0.80, Estimated Creat Clear 50, Estimated GFR 71, Est GFR ( Amer) 86 D, Glucose 123 H, Calcium 7.3 L, Blood Type Confirm A Positive 03/27/23 10:00: WBC 9.3, RBC 2.96 L, Hgb 8.4 L, Hct 26.8 L, MCV 90.6, MCH 28.5, MCHC 31.5 L, RDW 13.9, Plt Count 192 D, MPV 7.4, Neut % (Auto) 80.9 H, Lymph % (Auto) 7.8 L, [place] % (Auto) 5.4, Eos % (Auto) 5.8, Baso % (Auto) 0.1, Neut # (Auto) 7.6, Lymph # (Auto) 0.7, [place] # (Auto) 0.5, Eos # (Auto) 0.5 H, Baso # (Auto) 0.0, Blood Type A Positive, Antibody Screen Negative, Crossmatch (AHG) See Detail 03/27/23 11:39: POC Glucose 177 H 03/27/23 17:06: POC Glucose 115 H 03/27/23 19:50: Hgb 7.9 L, Hct 25.4 L 03/27/23 20:33: POC Glucose 134 H 03/28/23 05:27: POC Glucose 108 I & O for Last 24 hours: Intake & Output 07/14/23 07/15/23 07/16/23 07/17/23 11:59 11:59 11:59 11:59 Intake Total 2652 / 2652 2775 / 2775 1979 / 1979 2352 / 2352 Output Total 450 / 450 2 / 2 Balance 2202 / 2202 2773 / 2773 1978 2349 / 2349 Weight 113 lb 2 oz 127 lb 11.2 oz 130 lb 11.2 oz 130 lb 11.217 oz Constitutional Constitutional: no acute distress *Routine Respiratory Exam Respiratory: Absent respiratory distress *Routine Cardiovascular Exam Cardiovascular: Absent tachycardia *Routine Abdominal Exam Comments: Wound base and margin clear. Stable SQ hematoma. Progress Note: A&P Assessment and plan (1) Cecal volvulus: Status: Acute Assessment and plan: Overall, doing well status post right hemicolectomy. (2) Status post colon resection: Problem details: Continue clear liquid diet. She has reportedly passed flatus and continues to have bowel sounds. Status: Acute (3) Anemia associated with acute blood loss: Status: Acute Assessment and plan: She is receiving her second unit of packed red blood cells for anemia-associated weakness. Follow-up post-transfusion H&H
--- NOTE | 2023-03-28 08:50 | EXP.PN ---
Subjective *Date: 03/28/23 *Time: 08:50 Interval history: No acute events overnight continues to walk well and good oral intake on clear liquid diet She is receiving her 2nd unit of blood this morning sister at bedside states that she had 3 bloody bowel movements yesterday Exam Data for Last 24 hours Vital signs and Labs for Last 24 Hours: Temp Pulse Resp BP Pulse Ox O2 Del Method O2 Flow Rate 98.0 F 67 20 137/69 95 Room Air 25 03/28/23 06:50 03/28/23 06:50 03/28/23 06:50 03/28/23 06:50 03/28/23 06:50 03/28/23 06:43 03/26/23 14:47 Laboratory Results - last 24 hr 03/27/23 06:41: Sodium 141, Potassium 3.6, Chloride 109 H, Carbon Dioxide 29, Anion Gap 6.6, BUN 22 H D, Creatinine 0.80, Estimated Creat Clear 50, Estimated GFR 71, Est GFR ( Amer) 86 D, Glucose 123 H, Calcium 7.3 L, Blood Type Confirm A Positive 03/27/23 10:00: WBC 9.3, RBC 2.96 L, Hgb 8.4 L, Hct 26.8 L, MCV 90.6, MCH 28.5, MCHC 31.5 L, RDW 13.9, Plt Count 192 D, MPV 7.4, Neut % (Auto) 80.9 H, Lymph % (Auto) 7.8 L, [place] % (Auto) 5.4, Eos % (Auto) 5.8, Baso % (Auto) 0.1, Neut # (Auto) 7.6, Lymph # (Auto) 0.7, [place] # (Auto) 0.5, Eos # (Auto) 0.5 H, Baso # (Auto) 0.0, Blood Type A Positive, Antibody Screen Negative, Crossmatch (AHG) See Detail 03/27/23 11:39: POC Glucose 177 H 03/27/23 17:06: POC Glucose 115 H 03/27/23 19:50: Hgb 7.9 L, Hct 25.4 L 03/27/23 20:33: POC Glucose 134 H 03/28/23 05:27: POC Glucose 108 I & O for Last 24 hours: Intake & Output 03/25/23 03/26/23 03/27/23 03/28/23 23:59 23:59 23:59 23:59 Intake Total 1200 / 1300 1675 / 2525 2760 / 3625 1572 / 1572 Output Total / Balance 1199 / 1299 1673 / 2523 2759 / 3624 1570 / 1570 Weight 51.313 kg 57.924 kg 59.285 kg 59.285 kg Constitutional Constitutional: no acute distress *Routine HEENT Exam Head: Present normocephalic Eye: Present EOMI and PERRL ENT: Present mucous membranes moist *Routine Neck Exam Neck: Present supple; Absent lymphadenopathy *Routine Respiratory Exam Respiratory: Present CTA bilaterally *Routine Cardiovascular Exam Cardiovascular: Present RRR *Routine Abdominal Exam Abdominal: Present soft Comments: abdominal dressing is c/d/i *Routine Extremities Exam Extremities: Absent cyanosis, clubbing or edema *Routine Skin Exam Skin: Present warm; Absent rash *Routine Neurological Exam Neurological: Present alert and oriented X3 Assessment and Plan *Assessment and plan (1) Cecal volvulus: Status: Acute Category: Surgical Code(s): K56.2 - Volvulus (2) Status post colon resection: Problem Comment: Continue clear liquid diet. She has reportedly passed flatus and continues to have bowel sounds. Status: Acute Category: Surgical Code(s): Z90.49 - Acquired absence of other specified parts of digestive tract (3) HTN (hypertension): Status: Acute Qualifiers: Hypertension type: primary hypertension Qualified Code(s): I10 - Essential (primary) hypertension Category: Medical Code(s): I10 - Essential (primary) hypertension (4) Autism: Status: Acute Category: Medical Code(s): F84.0 - Autistic disorder (5) Developmental delay, borderline: Status: Acute Category: Medical Code(s): R62.50 - Unspecified lack of expected normal physiological development in childhood Plan #cecal volvulus status post right hemicolectomy with ileocolic anastomosis POD#3 #htn #developmental delay Appreciate general surgery NGT and ford discontinued 03/24. continuing unasyn per General surgery CBC and BMP ordered for tomorrow morning DVT ppx: SCDs, lovenox is being held CLD DNR
[2023-03-28 08:59] LABS: Basophils # 0.1 K/mm3 (0-0.2); Basophils % 0.4 % (0.1-2.0); Mean Corpuscular Volume 85.2 fl (81-99); Monocytes % 4.7 % (1.7-9.3)
[2023-03-28 09:03] LABS: Eosinophils # 0.9 K/mm3 (0.0-0.4); Eosinophils % 7.6 % (0.1-12.0); Hematocrit 36.1 % (37.0-47.0); Lymphocytes # 1.2 K/mm3 (0.7-4.5); Lymphocytes % 9.9 % (10-50); Mean Corpuscular HGB Conc 32.2 g/dL (31.8-35.4); Mean Corpuscular Hemoglobin 27.4 pg (27.0-31.2); Monocytes # 0.5 K/mm3 (0.1-1.0); Neutrophils % 77.5 % (37.0-80.0); Platelet Count 160 K/mm3 (142-424); Red Blood Count 4.24 M/mm3 (4.20-5.40); White Blood Count 11.6 K/mm3 (4.8-10.8)
[2023-03-28 09:05] LABS: Hemoglobin 11.6 g/dL (12.2-16.2)
[2023-03-28 09:08] LABS: Alanine Aminotransferase 40 U/L (12-78); Albumin Level 2.6 g/dl (3.5-5.0); Albumin/Globulin Ratio 1.2 (1.1-1.8); Alkaline Phosphatase 57 U/L (38-126); Anion Gap 9.5 mEq/L (5-15); Aspartate Amino Transferase 46 U/L (14-36); Bilirubin,Total 1.1 mg/dl (0.2-1.3); Blood Urea Nitrogen 12 mg/dl (7-17); Calcium 7.4 mg/dl (8.4-10.2); Carbon Dioxide 25 mmol/L (22.0-30.0); Chloride 103 mmol/L (98-107); Creatinine Clearance Estimated 50 mL/min (50-200); Estimated Glomerular Filt Rate 71 ml/min (>60); GFR (African American) 86 ML/MIN (>60); Globulin 2.1 g/dL (1.3-3.2); Glucose 160 mg/dl (74-100); Potassium 3.5 mmoL/L (3.5-5.1); Sodium 134 mmol/L (136-145); Total Protein,Serum 4.7 g/dl (6.3-8.2)
--- NOTE | 2023-03-28 14:38 | PC.NURSE ---
Dressing of 4x4s and abd pad removed, incision repacked with sterile 4x4 and covered with additional 4x4s and an abd. Tolerated well.
[2023-03-28 17:20] LABS: POC Glucose,Bedside 94 (70-110)
--- NOTE | 2023-03-28 19:25 | PC.NURSE ---
Bedside shift report from THOR Ellis; Patient has no needs to concerns at this time.
[2023-03-29] VITALS (7 sets, daily range): BP systolic 140–192; BP diastolic 68–122; PULSE 62–81; RESP 16–20; TEMP 36.5–37.3; O2SAT 96–98; BMI 31.4
--- NOTE | 2023-03-29 06:43 | PC.NURSE ---
Patient rested well throughout the night. Assisted to restroom with assist x1 when she would call out. Patient's caregiver at bedside requested her BIG dressing changes to her surgical wound be completed this AM instead of in the afternoon. She requested I not complete her dressing change last night. Patient is resting now without concern. VSS. NAD
--- NOTE | 2023-03-29 06:51 | EXP.SURG.PN ---
Subjective Patient reports: bowel movement Narrative: Bowel movement with no obvious blood reported Exam Data for Last 24 hours Vital signs and Labs for Last 24 Hours: Temp Pulse Resp BP Pulse Ox O2 Del Method O2 Flow Rate 98 F 78 20 165/90 H 97 Room Air 25 03/29/23 04:00 03/29/23 04:00 03/29/23 04:00 03/29/23 04:00 03/29/23 04:00 03/29/23 06:06 03/26/23 14:47 Laboratory Results - last 24 hr 03/27/23 10:00: Crossmatch (AHG) See Detail 03/28/23 08:46: WBC 11.6 H, RBC 4.24 D, Hgb 11.6 L D, Hct 36.1 L, MCV 85.2, MCH 27.4, MCHC 32.2, RDW 15.0, Plt Count 160, MPV 8.0, Neut % (Auto) 77.5, Lymph % (Auto) 9.9 L, [place] % (Auto) 4.7, Eos % (Auto) 7.6, Baso % (Auto) 0.4, Neut # (Auto) 9.0 H, Lymph # (Auto) 1.2, [place] # (Auto) 0.5, Eos # (Auto) 0.9 H, Baso # (Auto) 0.1, Sodium 134 L, Potassium 3.5, Chloride 103, Carbon Dioxide 25, Anion Gap 9.5, BUN 12 D, Creatinine 0.80, Estimated Creat Clear 50, Estimated GFR 71, Est GFR ( Amer) 86, Glucose 160 H, Calcium 7.4 L, Total Bilirubin 1.1, AST 46 H, ALT 40, Alkaline Phosphatase 57, Total Protein 4.7 L, Albumin 2.6 L, Globulin 2.1, Albumin/Globulin Ratio 1.2 03/28/23 17:13: POC Glucose 94 I & O for Last 24 hours: Intake & Output 03/26/23 03/27/23 03/28/23 03/29/23 11:59 11:59 11:59 11:59 Intake Total 4895 / 2775 1979 3072 / 3072 1060 / 1060 Output Total 2 / 2 150 / 150 Balance 2773 / 2773 1978 3069 / 3069 910 / 910 Weight 127 lb 11.2 oz 130 lb 11.2 oz 130 lb 11.217 oz 130 lb 1.164 oz Constitutional Constitutional: no acute distress *Routine Respiratory Exam Respiratory: Absent respiratory distress *Routine Cardiovascular Exam Cardiovascular: Absent tachycardia *Routine Abdominal Exam Abdominal: Present soft Comments: Wound margin without spreading cellulitis Progress Note: A&P Assessment and plan (1) Cecal volvulus: Status: Acute Assessment and plan: Stable status post right colectomy (2) Status post colon resection: Status: Acute Assessment and plan: Ileus resolving. Full liquid diet ordered Discharge when deemed appropriate per primary service with close outpatient follow-up (3) Developmental delay, borderline: Status: Acute
[2023-03-29 07:07] LABS: Basophils % 0.2 % (0.1-2.0); Eosinophils # 0.6 K/mm3 (0.0-0.4); Eosinophils % 5.2 % (0.1-12.0); Hematocrit 32.2 % (37.0-47.0); Hemoglobin 10.7 g/dL (12.2-16.2); Lymphocytes # 1.1 K/mm3 (0.7-4.5); Lymphocytes % 9.9 % (10-50); Mean Corpuscular HGB Conc 33.4 g/dL (31.8-35.4); Mean Corpuscular Hemoglobin 28.3 pg (27.0-31.2); Mean Corpuscular Volume 84.7 fl (81-99); Mean Platelet Volume 8.1 fl (7.4-10.4); Monocytes # 0.6 K/mm3 (0.1-1.0); Monocytes % 5.2 % (1.7-9.3); Neutrophils # 8.9 K/mm3 (1.8-7.8); Neutrophils % 79.6 % (37.0-80.0); Platelet Count 167 K/mm3 (142-424); Red Cell Distribution Width 15.4 % (11.5-17.5); White Blood Count 11.2 K/mm3 (4.8-10.8)
[2023-03-29 07:25] LABS: Alanine Aminotransferase 24 U/L (12-78); Albumin Level 2.3 g/dl (3.5-5.0); Albumin/Globulin Ratio 1.1 (1.1-1.8); Alkaline Phosphatase 65 U/L (38-126); Anion Gap 4.7 mEq/L (5-15); Aspartate Amino Transferase 37 U/L (14-36); Bilirubin,Total 0.6 mg/dl (0.2-1.3); Blood Urea Nitrogen 9 mg/dl (7-17); Calcium 7.6 mg/dl (8.4-10.2); Carbon Dioxide 29 mmol/L (22.0-30.0); Chloride 107 mmol/L (98-107); Creatinine Clearance Estimated 49 mL/min (50-200); Estimated Glomerular Filt Rate 83 ml/min (>60); GFR (African American) 100 ML/MIN (>60); Globulin 2.1 g/dL (1.3-3.2); Glucose 97 mg/dl (74-100); Potassium 3.7 mmoL/L (3.5-5.1); Sodium 137 mmol/L (136-145); Total Protein,Serum 4.4 g/dl (6.3-8.2)
--- NOTE | 2023-03-29 11:14 | PC.NURSE ---
Dressing changed. Lower inch of vertical surgical site packed with dry 4x4s, secured with a telfa, covered with an abd pad and secured with medipore tape. Upper portion of surgical site open to air with ila in place.
--- NOTE | 2023-03-29 15:40 | P.PN_ITS ---
Subjective *Date: 03/29/23 *Time: 15:40 Interval history: No acute events overnight she had one nonbloody bowel movement today pain is in control Exam Data for Last 24 hours Vital signs and Labs for Last 24 Hours: Temp Pulse Resp BP Pulse Ox O2 Del Method O2 Flow Rate 97.8 F 64 18 153/72 H 97 Room Air 25 03/29/23 11:31 03/29/23 11:31 03/29/23 11:31 03/29/23 11:31 03/29/23 11:31 03/29/23 13:00 03/26/23 14:47 Laboratory Results - last 24 hr 03/28/23 17:13: POC Glucose 94 03/29/23 06:47: WBC 11.2 H, RBC 3.80 L, Hgb 10.7 L, Hct 32.2 L, MCV 84.7, MCH 28.3, MCHC 33.4, RDW 15.4, Plt Count 167, MPV 8.1, Neut % (Auto) 79.6, Lymph % (Auto) 9.9 L, [place] % (Auto) 5.2, Eos % (Auto) 5.2, Baso % (Auto) 0.2, Neut # (Auto) 8.9 H, Lymph # (Auto) 1.1, [place] # (Auto) 0.6, Eos # (Auto) 0.6 H, Baso # (Auto) 0.0, Sodium 137, Potassium 3.7, Chloride 107, Carbon Dioxide 29, Anion Gap 4.7 L, BUN 9, Creatinine 0.70, Estimated Creat Clear 49, Estimated GFR 83, Est GFR ( Amer) 100, Glucose 97 D, Calcium 7.6 L, Total Bilirubin 0.6, AST 37 H, ALT 24 D, Alkaline Phosphatase 65, Total Protein 4.4 L, Albumin 2.3 L D, Globulin 2.1, Albumin/Globulin Ratio 1.1 I & O for Last 24 hours: Intake & Output 03/26/23 03/27/23 03/28/23 03/29/23 23:59 23:59 23:59 23:59 Intake Total 1675 / 2525 2760 / 3625 3252 / 3352 1060 / 1060 Output Total 2 / 2 152 / 152 125 / 125 Balance 1673 / 2523 2759 / 3624 3100 / 3200 935 / 935 Weight 57.924 kg 59.285 kg 59.285 kg 59 kg Constitutional Constitutional: no acute distress *Routine HEENT Exam Head: Present normocephalic Eye: Present EOMI and PERRL ENT: Present mucous membranes moist *Routine Neck Exam Neck: Present supple; Absent lymphadenopathy *Routine Respiratory Exam Respiratory: Present CTA bilaterally *Routine Cardiovascular Exam Cardiovascular: Present RRR *Routine Abdominal Exam Abdominal: Present soft Comments: abdominal dressing is c/d/i *Routine Extremities Exam Extremities: Absent cyanosis, clubbing or edema *Routine Skin Exam Skin: Present warm; Absent rash *Routine Neurological Exam Neurological: Present alert and oriented X3 Assessment and Plan *Assessment and plan (1) Cecal volvulus: Status: Acute Category: Surgical Code(s): K56.2 - Volvulus (2) Status post colon resection: Status: Acute Category: Surgical Code(s): Z90.49 - Acquired absence of other specified parts of digestive tract (3) HTN (hypertension): Status: Acute Qualifiers: Hypertension type: primary hypertension Qualified Code(s): I10 - Essential (primary) hypertension Category: Medical Code(s): I10 - Essential (primary) hypertension (4) Autism: Status: Acute Category: Medical Code(s): F84.0 - Autistic disorder (5) Developmental delay, borderline: Status: Acute Category: Medical Code(s): R62.50 - Unspecified lack of expected normal physiological development in childhood Plan #cecal volvulus status post right hemicolectomy with ileocolic anastomosis POD#3 #htn #developmental delay Appreciate general surgery NGT and ford discontinued 03/24. continuing unasyn per General surgery CBC and BMP ordered for tomorrow morning She is ambulating qid FLD DNR
--- NOTE | 2023-03-30 01:15 | PC.NURSE ---
Report from Sally Kumar RN
[2023-03-30 01:54] LABS: POC Glucose,Bedside 100 (70-110)
[2023-03-30 04:00] VITALS: BP 158/71; PULSE 67; RESP 17; TEMP 37.1; O2SAT 95
--- NOTE | 2023-03-30 06:00 | PC.NURSE ---
Patient rested well throughout my time as primary RN. Patient required two trips to the restroom with stand-by assist. Remained stable throughout night. NAD. VSS. Medicated per MAR
[2023-03-30 06:50] LABS: Basophils % 0.4 % (0.1-2.0); Eosinophils # 0.8 K/mm3 (0.0-0.4); Eosinophils % 8.9 % (0.1-12.0); Hematocrit 32.3 % (37.0-47.0); Hemoglobin 10.5 g/dL (12.2-16.2); Lymphocytes # 1.2 K/mm3 (0.7-4.5); Lymphocytes % 12.4 % (10-50); Mean Corpuscular HGB Conc 32.6 g/dL (31.8-35.4); Mean Corpuscular Hemoglobin 28.3 pg (27.0-31.2); Mean Corpuscular Volume 86.8 fl (81-99); Mean Platelet Volume 7.5 fl (7.4-10.4); Monocytes # 0.5 K/mm3 (0.1-1.0); Monocytes % 5.5 % (1.7-9.3); Neutrophils # 6.7 K/mm3 (1.8-7.8); Neutrophils % 72.8 % (37.0-80.0); Platelet Count 148 K/mm3 (142-424); Red Blood Count 3.72 M/mm3 (4.20-5.40); Red Cell Distribution Width 15.3 % (11.5-17.5); White Blood Count 9.2 K/mm3 (4.8-10.8)
[2023-03-30 06:57] LABS: Anion Gap 1.5 mEq/L (5-15); Blood Urea Nitrogen 7 mg/dl (7-17); Calcium 7.6 mg/dl (8.4-10.2); Carbon Dioxide 32 mmol/L (22.0-30.0); Chloride 108 mmol/L (98-107); Creatinine Clearance Estimated 49 mL/min (50-200); Estimated Glomerular Filt Rate 71 ml/min (>60); GFR (African American) 86 ML/MIN (>60); Glucose 91 mg/dl (74-100); Potassium 3.5 mmoL/L (3.5-5.1); Sodium 138 mmol/L (136-145)
[2023-03-30 07:56] VITALS: BP 160/73; PULSE 70; RESP 17; TEMP 37; O2SAT 94
--- NOTE | 2023-03-30 08:21 | EXP.SURG.PN ---
Subjective Narrative: Per nursing, dressing changes are going fine . The patient is currently seated and eating breakfast. She has not had any definitive nausea/emesis. Exam Data for Last 24 hours Vital signs and Labs for Last 24 Hours: Temp Pulse Resp BP Pulse Ox O2 Del Method O2 Flow Rate 98.6 F 70 17 160/73 H 94 L Room Air 25 03/30/23 07:56 03/30/23 07:56 03/30/23 07:56 03/30/23 07:56 03/30/23 07:56 03/30/23 07:56 03/26/23 14:47 Laboratory Results - last 24 hr 03/30/23 01:47: POC Glucose 100 03/30/23 05:50: WBC 9.2, RBC 3.72 L, Hgb 10.5 L, Hct 32.3 L, MCV 86.8, MCH 28.3, MCHC 32.6, RDW 15.3, Plt Count 148, MPV 7.5, Neut % (Auto) 72.8, Lymph % (Auto) 12.4, [place] % (Auto) 5.5, Eos % (Auto) 8.9, Baso % (Auto) 0.4, Neut # (Auto) 6.7, Lymph # (Auto) 1.2, [place] # (Auto) 0.5, Eos # (Auto) 0.8 H, Baso # (Auto) 0.0, Sodium 138, Potassium 3.5, Chloride 108 H, Carbon Dioxide 32 H, Anion Gap 1.5 L, BUN 7, Creatinine 0.80, Estimated Creat Clear 49, Estimated GFR 71, Est GFR ( Amer) 86, Glucose 91, Calcium 7.6 L I & O for Last 24 hours: Intake & Output 03/27/23 03/28/23 03/29/23 03/30/23 11:59 11:59 11:59 11:59 Intake Total 1979 3072 / 3072 1660 / 1660 1300 / 1300 Output Total 275 / 275 200 / 200 Balance 1978 3069 / 3069 1385 / 1385 1100 / 1100 Weight 130 lb 11.2 oz 130 lb 11.217 oz 130 lb 1.164 oz Constitutional Constitutional: no acute distress *Routine Respiratory Exam Respiratory: Absent respiratory distress *Routine Cardiovascular Exam Cardiovascular: Absent tachycardia *Routine Abdominal Exam Comments: Dressing in place. No spreading cellulitis Progress Note: A&P Assessment and plan (1) Cecal volvulus: Status: Acute (2) Status post colon resection: Status: Acute Assessment and plan: Overall, doing well status post right colectomy. Continue overall care as per primary service Okay from surgical standpoint for discharge home with close outpatient follow-up Continue dressing changes for partially-open midline wound Note: Antibiotics discontinued
--- NOTE | 2023-03-30 09:27 | DIET.NUTRFU ---
Pt's sister requested further guidance on specific dietary recommendations for types of foods to avoid or limit at this time. Educated her on regular diet and that pt has no restrictions at this time. Provided handout on low-fiber diet from Nutrition Care Manual for foods that would be less stressful on gut at first but that patient does not have to follow it at this time.
--- NOTE | 2023-03-30 10:25 | PC.NURSE ---
pt does not have iv access. notified md , no need for iv at this time.
[2023-03-30 11:07] VITALS: BP 155/83; PULSE 63; RESP 18; TEMP 36; O2SAT 97
--- NOTE | 2023-03-30 11:07 | PC.NURSE ---
courtesy tech teresa: pt is sitting up in the chair. Family is at BS. no needs voiced at this time
--- NOTE | 2023-03-30 14:15 | EXP.DC.SUM ---
General Admission date:: 03/23/23 Discharge date: 03/30/23 HPI HPI HPI: 68 year old female who presents to the medical floor for admission s/p laparotomy with right colon resection with ileocolic anastomosis. Pt is hemodynamically stable, on room air, with NGT in place. There is no evedience of bleeding from the surgical site. Pt nonverbal but does not appear to be in pain upon admission. Earlier in the night the patient presented to the ED with Sister for c/o decreased intake and appetite over the past 24 hours. Pt is nonverbal due to having hx of developmental delay. Sister is primary caregiver and historian. Sister states pt also has vomiting and decreased in bowel movements. In the ED the pt's abdomen was distened with diffuse tenderness upon deep palpation. ED work up consists of routine blood work and CT scan of abd and pelvis. CT revealed dilated cecum and findings of spiraling of the mesentery consistent with cecal volvulus with a small volume of fluid/ascites. ED physician consulted general surgery who took the patient to emergent surgery. The ED physician spoke with the hospitalist team for admission. The patient will remain NPO with NGT tube with further instructions from general surgery. She will receive fluid replacement therapy, PRN morphine for pain, and Unasyn TID. 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 NGT and ford discontinued 03/24. The patient had hematochezia and some bleeding from her surgical incision. On 03/27 General Surgery performed wound exploration; some ila were removed from the lower half of the incision and there was only a small amount of clot under the skin and no active oozing/welling/spurting of blood. She received 2 units of blood. By the day of discharge her hgb had been stable for several days and she did not have any bloody bowel movements for several days. The patient received Unasyn throughout most of the hospital course. She will be discharging to home with home health services for wound care. Her wound needs to be packed and dressed daily; family will be educated by home health. She will need to f/u with General Surgery in one week and her PCP in 1 week. Exam Data for Last 24 hours Vital signs and Labs for Last 24 Hours: Temp Pulse Resp BP Pulse Ox O2 Del Method O2 Flow Rate 96.8 F L 63 18 155/83 H 97 Room Air 25 03/30/23 11:07 03/30/23 11:07 03/30/23 11:07 03/30/23 11:07 03/30/23 11:07 03/30/23 13:00 03/26/23 14:47 Laboratory Results - last 24 hr 03/30/23 01:47: POC Glucose 100 03/30/23 05:50: WBC 9.2, RBC 3.72 L, Hgb 10.5 L, Hct 32.3 L, MCV 86.8, MCH 28.3, MCHC 32.6, RDW 15.3, Plt Count 148, MPV 7.5, Neut % (Auto) 72.8, Lymph % (Auto) 12.4, [place] % (Auto) 5.5, Eos % (Auto) 8.9, Baso % (Auto) 0.4, Neut # (Auto) 6.7, Lymph # (Auto) 1.2, [place]ary # (Auto) 0.5, Eos # (Auto) 0.8 H, Baso # (Auto) 0.0, Sodium 138, Potassium 3.5, Chloride 108 H, Carbon Dioxide 32 H, Anion Gap 1.5 L, BUN 7, Creatinine 0.80, Estimated Creat Clear 49, Estimated GFR 71, Est GFR ( Amer) 86, Glucose 91, Calcium 7.6 L I & O for Last 24 hours: Intake & Output 03/27/23 03/28/23 03/29/23 03/30/23 23:59 23:59 23:59 23:59 Intake Total 2760 / 3625 3252 / 3352 1660 / 1760 580 / 580 Output Total 152 / 152 125 / 125 200 / 200 Balance 2759 / 3624 3100 / 3200 1535 / 1635 380 / 380 Weight 59.285 kg 59.285 kg 59 kg Constitutional Constitutional: no acute distress *Routine HEENT Exam Head: Present normocephalic Eye: Present EOMI and PERRL ENT: Present mucous membranes moist *Routine Neck Exam Neck: Present supple; Absent lymphadenopathy *Routine Respiratory Exam Respiratory: Present CTA bilaterally *Routine Cardiovascular Exam Cardiovascular: Present RRR *Routine Abdominal Exam Abdomin
--- NOTE | 2023-03-30 14:26 | HMH.PHAINT1 ---
Pharmacy Intervention Comments: Patient's home discharge medications reviewed with patient's sister: - Stop Benadryl - Stop Claritin Patient had no further questions. -Johann Gruber, Pharm Student
--- NOTE | 2023-03-30 15:57 | PC.NURSE ---
courtesy tech note: pt is sitting up in the chair. family and call light are at BS. No requests voiced at this time.
--- NOTE | 2023-03-31 14:22 | CARE MANAGER ---
Called and spoke with patient regarding recent discharge. Patient stated that she is doing well. She had no complaints or concerns at time of call.
== END 2023-03-30 18:23 | disposition home health service (06) | DRG 330 ==
LOC: ER 23:20 → SDC 23:20 → 2ND 03-23 01:47
PROVIDERS: Emergency Medicine; Internal Medicine; Nurse Practitioner Critical Care Medicine; Surgery; Admitting Provider Internal Medicine; Emergency Provider Student in an Organized Health Care Education/Training Program; PCP Internal Medicine; Visit Provider Internal Medicine
PROC: (CPT 49000; principal; 2023-03-22 11:00)
DX: K56.2 Volvulus (principal); D62 Acute posthemorrhagic anemia; F84.0 Autistic disorder; I10 Essential (primary) hypertension; R62.50 Unspecified lack of expected normal physiological development in childhood; E16.2 Hypoglycemia, unspecified
CPT/HCPCS: 44140; 36415; 71046; 74177; 80048; 80053; 81001; 82962; 83605; 83690; 83735; 85007; 85014; 85018; 85025; 86850; 87636; 88307; 97116; 97163; 97530; 97535; 99285; J2405; P9016; Q9967

== ENCOUNTER 2023-04-09 15:43 | Inpatient (IN) | payer MEDICARE, OTHER, SELFPAY ==
[2023-04-09] VITALS (7 sets, daily range): BP systolic 119–136; BP diastolic 60–78; PULSE 71–100; RESP 18–22; TEMP 36.5–38; O2SAT 90–98; BMI 26.0; BMI 25.0
--- NOTE | 2023-04-09 16:13 | PC.NURSE ---
2 sets of blood cultures sent to lab.
--- NOTE | 2023-04-09 16:15 | PC.NURSE ---
Bowel sounds: hypoactive in all 4 quadrants. Abd distended upon assessment.
[2023-04-09 16:18] LABS: Microscopic, Urine URINE MICROSCOPIC (MICROSCOPIC)
[2023-04-09 16:20] LABS: Basophils % 0.1 % (0.1-2.0); Eosinophils # 0.2 K/mm3 (0.0-0.4); Eosinophils % 0.9 % (0.1-12.0); Hematocrit 44.7 % (37.0-47.0); Hemoglobin 14.3 g/dL (12.2-16.2); Lymphocytes # 1.1 K/mm3 (0.7-4.5); Lymphocytes % 6.9 % (10-50); Mean Corpuscular HGB Conc 31.9 g/dL (31.8-35.4); Mean Corpuscular Hemoglobin 27.4 pg (27.0-31.2); Mean Corpuscular Volume 85.9 fl (81-99); Mean Platelet Volume 7.4 fl (7.4-10.4); Monocytes # 0.8 K/mm3 (0.1-1.0); Monocytes % 4.9 % (1.7-9.3); Neutrophils # 14.4 K/mm3 (1.8-7.8); Neutrophils % 87.2 % (37.0-80.0); Platelet Count 208 K/mm3 (142-424); Red Cell Distribution Width 15.1 % (11.5-17.5); White Blood Count 16.5 K/mm3 (4.8-10.8)
[2023-04-09 16:22] LABS: Appearance,Urine CLEAR (Clear); Blood, Urine Negative (Negative); Color,Urine YELLOW (Yellow); Glucose,Urine (UA) Negative (Negative); Ketones,Urine TRACE (Negative); Leukocyte Esterase,Urine Negative (Negative); Nitrate,Urine Negative (Negative); Protein,Urine 1+ (Negative); Specific Gravity, Urine 1.025 (1.005-1.030)
[2023-04-09 16:24] LABS: MANUAL DIFFERENTIAL MANUAL DIFFERENTIAL (MANUAL DIFF)
--- NOTE | 2023-04-09 16:24 | CT_ITS ---
PROCEDURE INFORMATION: Exam: CT Abdomen And Pelvis With Contrast Exam date and time: 04/09/2023 5:21 PM Age: 68 years old Clinical indication: Vomiting; Additional info: Vomiting, no bm x2d, recent cecal volvulus TECHNIQUE: Imaging protocol: Computed tomography of the abdomen and pelvis with contrast. Radiation optimization: All CT scans at this facility use at least one of these dose optimization techniques: automated exposure control; mA and/or kV adjustment per patient size (includes targeted exams where dose is matched to clinical indication); or iterative reconstruction. Contrast material: ISOVUE; Contrast volume: 75 ml; Contrast route: IV; REPORTING DATA: Count of CT and Cardiac NM exams in prior 12 months: This patient has received [address] and 0 known cardiac nuclear medicine studies in the 12 months prior to the current study. COMPARISON: CT ABDOMEN PELVIS W CON 03/22/2023 8:32 PM FINDINGS: Lungs: Left basilar subsegmental atelectasis developed from previous exam. Heart: Heart is mildly enlarged. Liver: Normal. No mass. Gallbladder and bile ducts: Gallbladder is contracted limiting assessment. Pancreas: Normal. No ductal dilation. Spleen: Normal. No splenomegaly. Adrenal glands: Normal. No mass. Kidneys and ureters: Normal. No hydronephrosis. Stomach and bowel: Stomach is moderately distended fluid-filled. There is interval development of large cluster of dilated fluid-filled small bowel loops with decompressed distal small bowel suspicious for mid small bowel obstruction. Transition point difficult to identify with confidence. Some of the involved bowel loops within the left lower quadrant demonstrate mild thickening and enhancement of the bowel wall may reflect superimposed enteritis or complicated small-bowel obstruction. There are postsurgical changes right mid abdomen involving right colon with partial colonic resection from repaired cecal volvulus. There is a 5 x 3 cm bilobed inflammatory mass situated just posterior-inferior to the cecum with some adjacent indistinct fat stranding that may represent a phlegmon like reaction or some acute fat necrosis from prior surgery. There are multiple diverticula sigmoid colon without evidence of acute diverticulitis. Appendix: Appendix not identified with confidence. No compelling evidence of acute appendicitis. Intraperitoneal space: There is a mild amount of free fluid within the pelvis stable in overall extent from previous exam etiology of which is unclear and may represent unresolved fluid from previous study but limits assessment for complicated small-bowel obstruction.. Vasculature: Unremarkable. No abdominal aortic aneurysm. Lymph nodes: Unremarkable. No enlarged lymph nodes. Urinary bladder: Unremarkable as visualized. Reproductive: Unremarkable as visualized. Bones/joints: Unremarkable. No acute fracture. Soft tissues: See Stomach and bowel finding. IMPRESSION: 1. Findings suspicious for mid small bowel obstruction with additional findings raising concern for complicated small-bowel obstruction for which continued close follow-up recommended. 2. Mild amount of pelvic ascites, stable, nonspecific as discussed above. 3. Interval repair of cecal volvulus with 5 x 3 cm inflammatory mass situated just posterior-inferior to the site of surgical repair within the right lower quadrant. No drainable abscess collection. 4. Sigmoid diverticulosis. No evidence of acute diverticulitis.
[2023-04-09 16:26] LABS: Bilirubin,Urine 2+ (Negative)
[2023-04-09 16:27] LABS: Alanine Aminotransferase 28 U/L (12-78); Albumin/Globulin Ratio 1.4 (1.1-1.8); Alkaline Phosphatase 112 U/L (38-126); Anion Gap 11.4 mEq/L (5-15); Aspartate Amino Transferase 37 U/L (14-36); Bilirubin,Total 0.6 mg/dl (0.2-1.3); Blood Urea Nitrogen 25 mg/dl (7-17); Calcium 9.2 mg/dl (8.4-10.2); Carbon Dioxide 36 mmol/L (22.0-30.0); Chloride 95 mmol/L (98-107); Creatinine Clearance Estimated 41 mL/min (50-200); Estimated Glomerular Filt Rate 55 ml/min (>60); GFR (African American) 67 ML/MIN (>60); Globulin 2.8 g/dL (1.3-3.2); Glucose 156 mg/dl (74-100); Lipase 55 U/L (23-300); Potassium 4.4 mmoL/L (3.5-5.1); Sodium 138 mmol/L (136-145); Total Protein,Serum 6.8 g/dl (6.3-8.2)
[2023-04-09 16:28] LABS: Lactic Acid 1.3 mmol/L (0.7-2.1)
[2023-04-09 16:46] LABS: Lymphocytes % 6 % (10-50); Monocytes % 7 % (2-9); Neutrophils % 87 % (42-76); Total Cells Counted 100
[2023-04-09 16:47] LABS: Platelet Estimate Normal; RBC Morphology Normal
[2023-04-09 16:54] LABS: Bacteria,Urine Trace /lpf
--- NOTE | 2023-04-09 17:37 | HMH.EDGENADL ---
Discharge Plan Disposition Patient Disposition: Admitted Condition: Good Clinical Impressions Clinical Impression: Small bowel obstruction Discharge ED Provider: Tahmina Méndez General Adult HPI General Chief complaint: Abdominal Pain Stated complaint: vomiting Time Seen by Provider: 04/09/23 15:54 Mode of Arrival: Wheelchair Source of Information: Patient Limitations: No Limitations Description of Symptoms (Recalled from ER Triage Doc. by RN): Presents to ED with c/o vomiting since last night. Patient's family reports her being unable to keep anything down and having normal bowel movements up until yesterday. Patient family further reported patient having a SBO w/surgery. Denies OTC meds [employer]. History of Present Illness HPI narrative: This patient is a 68-year-old female with a history of nonverbal autism, developmental delay, and recent admission for a cecal volvulus status post bowel resection on 03/23/2023. Patient was discharged home on 03/30/2023, and family had reported that she had been doing better since going home. She been having good bowel movements up until 4 days ago, when she started passing only small amounts of stool or liquid stool. She also seems to have decreased appetite last night, and then today she started having vomiting. She has not wanted to eat or drink anything today. They note that her abdomen also seems distended. She has a open wound to her lower abdomen that they have been packing at home which seems to be healing well. No fevers, chills, cough, shortness of breath, or other concerns noted at this time. Related Data Home Medications Medication Instructions Recorded Confirmed polyethylene glycol 3350 17 17 g PO Q10M constipation 10/24/17 04/09/23 gram/dose oral powder (GentleLax) spironolactone 25 mg tablet 75 mg PO DAILY Fluid 01/16/19 04/09/23 betamethasone dipropionate 0.05 % 1 applic topical BID rash 03/22/23 04/09/23 topical ointment fexofenadine 180 mg tablet 180 mg PO HS Allergy Symptoms 03/22/23 04/09/23 temazepam 15 mg capsule 15 mg PO HS sleep 03/22/23 04/09/23 vitamins A,C,T-gsou-bvtpgq 2,148 1 tab PO BID Supplement 03/22/23 04/09/23 mcg-113 mg-45 mg-17.4 mg tablet (PreserVision AREDS) Allergies Allergy/AdvReac Type Severity Reaction Status Date / Time losartan Allergy Verified 04/06/23 14:54 [facility] Disclaimer: The information contained in this section may have been updated after the patient was seen, as this information can be updated by other users. Medical History Autism HTN (hypertension) Hypoglycemia Surgical History Cecal volvulus History of colon resection Social History Smoking Status: Unknown if ever smoked alcohol intake: never substance use type: denies use current occupational status: disabled Travel in the last 8 weeks: None household members: family housing: house caffeine: Yes ROS Obtained: Yes unobtainable due to mental condition Physical Exam General General appearance: alert and in no apparent distress Head Head exam: atraumatic and normocephalic Eye Eye exam: Present normal appearance, PERRL and EOMI ENT ENT exam: Present normal exam, normal oropharynx and mucous membranes moist Neck Neck exam: Present normal inspection, full ROM and trachea midline; Absent tenderness Chest Chest inspection: Present normal inspection and symmetric chest wall rise; Absent tenderness Respiratory Respiratory exam: Present normal lung sounds bilaterally; Absent respiratory distress Cardiovascular Cardiovascular exam: Present regular rate and normal rhythm Abdominal Exam Abdominal exam: Present distention, tenderness, diminished bowel sounds and other (Midline incision; Top is c/d/i but lower portion is ); Absent guarding, rebound or rigidity Extremities Exam Extre
--- NOTE | 2023-04-09 18:41 | PC.NURSE ---
Dr Méndez speaking to Dr Carvalho
--- NOTE | 2023-04-09 19:05 | PC.NURSE ---
Handed off report to health and physical education professor
--- NOTE | 2023-04-09 19:31 | PC.NURSE ---
warehouseman notified of need for bed
--- NOTE | 2023-04-09 19:32 | PC.NURSE ---
notified of family wanting to speak to her
--- NOTE | 2023-04-09 19:32 | PC.NURSE ---
PATIENT ADMITTED TO 205 OBSERVATION WITH SBO TO SERVICE OF DR. LEROY.
--- NOTE | 2023-04-09 19:54 | XR_ITS ---
PROCEDURE INFORMATION: Exam: XR Abdomen Exam date and time: 04/09/2023 8:11 PM Age: 68 years old Clinical indication: Device placement; Gi device; Nasogastric tube; Additional info: Ng placement TECHNIQUE: Imaging protocol: Radiologic exam of the abdomen. Views: Frontal supine view of the abdomen. 1 View. COMPARISON: CT ABDOMEN PELVIS W CON 04/09/2023 5:21 PM FINDINGS: Tubes, catheters and devices: Patient has undergone placement of an NG tube whose tip projects within the lateral aspect of the body of the stomach. Lungs: Visualized lung bases are clear. Gastrointestinal tract: There is gaseous distention of the stomach and multiple small bowel loops which remains suspicious for small bowel obstruction. Bones/joints: Unremarkable. IMPRESSION: Interval placement of NG tube whose tip lies within the body of the stomach.
--- NOTE | 2023-04-09 19:57 | PC.NURSE ---
16 FR NG TUBE INSERTED IN RIGHT NARE AT THIS TIME, PT TOLERATED WELL
--- NOTE | 2023-04-09 20:19 | EXP.HP ---
History of Present Illness *Admission Date: 04/09/23 *Reason for visit:: Abdominal pain *History of present illness: This patient is a 68-year-old female with PMHx of nonverbal autism, developmental delay, HTN with recent admission for a cecal volvulus status post bowel resection on 03/23/2023. Patient was discharged home on 03/30/2023, and family had reported that she had been doing better since going home. She been having good bowel movements up until 4 days ago, when she started passing only small amounts of stool or liquid stool. She also seems to have decreased appetite last night, and then today she started having abdominal pain and vomiting. Patient came to ER for evaluation history obtained from sister. Readmitted for further work-up [facility] Disclaimer: The information contained in this section may have been updated after the patient was seen, as this information can be updated by other users. Medical History Autism HTN (hypertension) Hypoglycemia Surgical History Cecal volvulus History of colon resection Social History Smoking Status: Unknown if ever smoked alcohol intake: never substance use type: denies use current occupational status: disabled Travel in the last 8 weeks: None household members: family housing: house caffeine: Yes Review of Systems Review of Systems Review of systems:: pertinent systems reviewed and negative unless documented below Meds Home Medications and Allergies Home Medications Medication Instructions Recorded Confirmed Type spironolactone 25 mg tablet 75 mg PO DAILY Fluid 01/16/19 04/09/23 History fexofenadine 180 mg tablet 180 mg PO HS Allergy Symptoms 03/22/23 04/09/23 History temazepam 15 mg capsule 15 mg PO HS sleep 03/22/23 04/09/23 History vitamins A,C,I-tttv-wzzmzk 2,148 1 tab PO BID Supplement 03/22/23 04/09/23 History mcg-113 mg-45 mg-17.4 mg tablet (PreserVision AREDS) New Prescriptions to Start Prescriptions: Allergies Allergy/AdvReac Type Severity Reaction Status Date / Time losartan Allergy Verified 04/06/23 14:54 Exam Data for Last 24 hours Vital signs and Labs for Last 24 Hours: Temp Pulse Resp BP Pulse Ox O2 Del Method 97.7 F 71 22 119/67 90 L Room Air 04/09/23 15:44 04/09/23 17:00 04/09/23 17:00 04/09/23 17:00 04/09/23 17:00 04/09/23 15:44 Laboratory Results - last 24 hr 04/09/23 16:00: WBC 16.5 H, RBC 5.20, Hgb 14.3, Hct 44.7, MCV 85.9, MCH 27.4, MCHC 31.9, RDW 15.1, Plt Count 208, MPV 7.4, Neut % (Auto) 87.2 H, Lymph % (Auto) 6.9 L, Leon % (Auto) 4.9, Eos % (Auto) 0.9, Baso % (Auto) 0.1, Neut # (Auto) 14.4 H, Lymph # (Auto) 1.1, Leon # (Auto) 0.8, Eos # (Auto) 0.2, Baso # (Auto) 0.0, Total Counted 100, Neutrophils % (Manual) 87 H, Lymphocytes % (Manual) 6 L, Monocytes % (Manual) 7, Platelet Estimate Normal, RBC Morphology Normal, Sodium 138, Potassium 4.4, Chloride 95 L, Carbon Dioxide 36 H, Anion Gap 11.4, BUN 25 H, Creatinine 1.00, Estimated Creat Clear 41, Estimated GFR 55 L, Est GFR ( Amer) 67, Glucose 156 H, Lactate 1.3, Calcium 9.2, Total Bilirubin 0.6, AST 37 H, ALT 28, Alkaline Phosphatase 112, Total Protein 6.8 D, Albumin 4.0, Globulin 2.8, Albumin/Globulin Ratio 1.4, Lipase 55 04/09/23 16:12: Urine Color Yellow, Urine Appearance Clear, Urine pH 6.0, Ur Specific [place] 1.025, Urine Protein 1+, Urine Glucose (UA) Negative, Urine Ketones Trace, Urine Blood Negative, Urine Nitrate Negative, Urine Bilirubin 2+ A, Urine Urobilinogen 1.0, Ur Leukocyte Esterase Negative, Urine RBC None, Urine WBC None, Ur Squamous Epith Cells 3-5, Urine Bacteria Trace I & O for Last 24 hours: Intake & Output 04/06/23 04/07/23 04/08/2304/09/23 23:59 23:59 23:59 23:59 Weight 48.988 kg Constitutional Constitutional: mild distress *Routine HEENT
--- NOTE | 2023-04-09 21:12 | PC.NURSE ---
RECEIVED REPORT FROM MARILIN RN/ED NURSE AT 2100.
--- NOTE | 2023-04-09 21:19 | PC.NURSE ---
PT ARRIVED AT THIS TIME TO FLOOR
[2023-04-10] VITALS: BP 125/60; PULSE 78; RESP 18; TEMP 37.8; O2SAT 94
[2023-04-10 04:00] VITALS: BP 119/66; PULSE 83; RESP 18; TEMP 37.7; O2SAT 91; BMI 25.0
--- NOTE | 2023-04-10 05:13 | PC.NURSE ---
dDRSG TO LOWER MIDLINE ABDOMEN C/D/I, DRSG CHANGE PERFORMED EARLY IN THE SHIFT, NO S/S OF INFECTION. HEALING BY SECONDARY GRANULATION. WOUND HEALTHY . NO DRAINAGE. PATIENT IS MOSTLY NON VERBAL. MAKES SOME NOISE. SISTER INTERPRETS PATIENTS BODY LANGUAGE. NPO. GASTRIC OUTPUT 500 ML DARK GREEN SECRETIONS. ABDOMEN NOT DIDTENDED AND SOFTER. NO INDICATIONS OF PAIN AT THIS TIME.
[2023-04-10 07:14] LABS: Basophils % 0.2 % (0.1-2.0); Eosinophils # 0.1 K/mm3 (0.0-0.4); Lymphocytes # 0.8 K/mm3 (0.7-4.5); Neutrophils # 7.1 K/mm3 (1.8-7.8)
[2023-04-10 07:20] LABS: Eosinophils % 1.4 % (0.1-12.0); Hematocrit 34.7 % (37.0-47.0); Lymphocytes % 9.6 % (10-50); Mean Corpuscular HGB Conc 33.2 g/dL (31.8-35.4); Mean Corpuscular Hemoglobin 28.9 pg (27.0-31.2); Mean Corpuscular Volume 86.8 fl (81-99); Mean Platelet Volume 7.3 fl (7.4-10.4); Monocytes # 0.7 K/mm3 (0.1-1.0); Monocytes % 7.8 % (1.7-9.3); Neutrophils % 80.9 % (37.0-80.0); Platelet Count 155 K/mm3 (142-424); Red Cell Distribution Width 15.4 % (11.5-17.5); White Blood Count 8.8 K/mm3 (4.8-10.8)
[2023-04-10 07:22] LABS: Alanine Aminotransferase 20 U/L (12-78); Albumin/Globulin Ratio 1.3 (1.1-1.8); Alkaline Phosphatase 87 U/L (38-126); Aspartate Amino Transferase 29 U/L (14-36); Bilirubin,Total 0.8 mg/dl (0.2-1.3); Blood Urea Nitrogen 23 mg/dl (7-17); Calcium 8.1 mg/dl (8.4-10.2); Carbon Dioxide 35 mmol/L (22.0-30.0); Chloride 100 mmol/L (98-107); Creatinine Clearance Estimated 36 mL/min (50-200); Estimated Glomerular Filt Rate 49 ml/min (>60); GFR (African American) 60 ML/MIN (>60); Globulin 2.3 g/dL (1.3-3.2); Glucose 92 mg/dl (74-100); Phosphorous 3.2 mg/dl (2.5-4.5); Sodium 137 mmol/L (136-145); Total Protein,Serum 5.3 g/dl (6.3-8.2)
[2023-04-10 07:23] LABS: Hemoglobin 11.5 g/dL (12.2-16.2)
[2023-04-10 07:54] VITALS: BP 110/51; PULSE 79; RESP 16; TEMP 37.6; O2SAT 92
--- NOTE | 2023-04-10 09:57 | EXP.ACUTE.PN ---
Subjective *Date: 04/10/23 *Time: 11:41 Interval history: Patient feeling better per sister this morning after decompression of abdomen. Remains afebrile. No vomiting overnight. Medical Exam Vital signs and Labs for Last 24 Hours: Vital Signs Temp Pulse Pulse Resp BP BP Pulse Ox 04/10/23 07:54 99.6 F 79 16 110/51 L 92 L 04/10/23 06:50 04/10/23 04:00 99.8 F H 83 18 119/66 91 L 04/10/23 04:46 04/10/23 03:00 04/10/23 01:00 04/10/23 00:00 100.0 F H 78 18 125/60 94 L 04/09/23 21:19 100.4 F H 80 18 134/67 95 04/09/23 23:00 04/09/23 22:18 93 L 04/09/23 21:03 98.2 F 72 19 123/71 04/09/23 21:03 04/09/23 17:00 71 22 119/67 90 L 04/09/23 16:30 90 18 127/60 93 L 04/09/23 16:14 96 H 18 122/75 96 04/09/23 15:44 97.7 F 100 H 18 136/78 94 L O2 Del Method 04/10/23 07:54 Room Air 04/10/23 06:50 Room Air 04/10/23 04:00 Room Air 04/10/23 04:46 Room Air 04/10/23 03:00 Room Air 04/10/23 01:00 Room Air 04/10/23 00:00 Room Air 04/09/23 21:19 Room Air 04/09/23 23:00 Room Air 04/09/23 22:18 Room Air 04/09/23 21:03 Room Air 04/09/23 21:03 Room Air 04/09/23 17:00 04/09/23 16:30 04/09/23 16:14 04/09/23 15:44 Room Air Intake and Output 04/09/23 04/10/23 04/10/23 23:59 07:59 15:59 Intake Total 1000 / 1100 665 / 665 Output Total 1101 / 1101 Balance 999 / 1099 -436 / -436 Intake: Intake, Oral Amount 0 / 0 Intake, Total IV Amount 1000 / 1100 665 / 665 Lactated Ringers 1000ML 1,000 365 / 365 ml @ 50 mls/hr IV .Q20H [facility] Rx# :[id number] Piperacillin/Tazo 4.5 gm In 0.9 300 / 300 % Sodium Chloride 100 ml @ 200 mls/hr IV Q8H [facility] Rx#: [id number] Output: Output, Urine Amount 601 / 601 Output, Gastric Drainage Amount 500 / 500 Right Nare 500 / 500 Other: Number of Unmeasured Voids 1 1 Weight 46.89 kg 46.862 kg Patient Weight 04/10/23 23:59 Weight 46.862 kg Laboratory Results - last 24 hr 04/09/23 16:00: WBC 16.5 H, RBC 5.20, Hgb 14.3, Hct 44.7, MCV 85.9, MCH 27.4, MCHC 31.9, RDW 15.1, Plt Count 208, MPV 7.4, Neut % (Auto) 87.2 H, Lymph % (Auto) 6.9 L, [place] % (Auto) 4.9, Eos % (Auto) 0.9, Baso % (Auto) 0.1, Neut # (Auto) 14.4 H, Lymph # (Auto) 1.1, [place] # (Auto) 0.8, Eos # (Auto) 0.2, Baso # (Auto) 0.0, Total Counted 100, Neutrophils % (Manual) 87 H, Lymphocytes % (Manual) 6 L, Monocytes % (Manual) 7, Platelet Estimate Normal, RBC Morphology Normal, Sodium 138, Potassium 4.4, Chloride 95 L, Carbon Dioxide 36 H, Anion Gap 11.4, BUN 25 H, Creatinine 1.00, Estimated Creat Clear 41, Estimated GFR 55 L, Est GFR ( Amer) 67, Glucose 156 H, Lactate 1.3, Calcium 9.2, Total Bilirubin 0.6, AST 37 H, ALT 28, Alkaline Phosphatase 112, Total Protein 6.8 D, Albumin 4.0, Globulin 2.8, Albumin/Globulin Ratio 1.4, Lipase 55 04/09/23 16:12: Urine Color Yellow, Urine Appearance Clear, Urine pH 6.0, Ur Specific [place] 1.025, Urine Protein 1+, Urine Glucose (UA) Negative, Urine Ketones Trace, Urine Blood Negative, Urine Nitrate Negative, Urine Bilirubin 2+ A, Urine Urobilinogen 1.0, Ur Leukocyte Esterase Negative, Urine RBC None, Urine WBC None, Ur Squamous Epith Cells 3-5, Urine Bacteria Trace 04/10/23 06:52: WBC 8.8 D, RBC 4.00 L, Hgb 11.5 L D, Hct 34.7 L, MCV 86.8, MCH 28.9, MCHC 33.2, RDW 15.4, Plt Count 155 D, MPV 7.3 L, Neut % (Auto) 80.9 H, Lymph % (Auto) 9.6 L, [place] % (Auto) 7.8, Eos % (Auto) 1.4, Baso % (Auto) 0.2, Neut # (Auto) 7.1, Lymph # (Auto) 0.8, [place] # (Auto) 0.7, Eos # (Auto) 0.1, Baso # (Auto) 0.0, Sodium 137, Potassium 4.0, Chloride 100, Carbon Dioxide 35 H, Anion Gap 6.0, BUN 23 H, Creatinine 1.10 H, Estimated Creat Clear 36, Estimated GFR 49 L, Est GFR ( Amer) 60, Glucose 92 D, Calcium 8.1 L, Phosphorus 3.2, Magnesium 2.0, Total Bilirubin 0.8, AST 29, ALT 20 D, Alkaline Phosphatase 87, Total Protein 5
--- NOTE | 2023-04-10 10:16 | HMH.PHAINT1 ---
Pharmacy Intervention Comments: MEDICATION RECONCILIATION COMPLETED ON PATIENT USING EXTERNAL FILL HISTORY FROM PHARMACY AND DISCHARGE SUMMARY FROM PREVIOUS ADMISSION. -[facility], MYESHAD
--- NOTE | 2023-04-10 10:26 | EXP.SURG.CON ---
History of Present Illness *Admission Date: 04/09/23 *History of present illness: This patient is a 68-year-old female with PMHx of nonverbal autism, developmental delay, HTN. 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 Surgical consultation was obtained in the ER at that time and she was taken emergently for laparotomy at which time she underwent right hemicolectomy. Pathology revealed benign small bowel and colonic mucosa with changes consistent with volvulus with vascular congestion and superficial mucosal necrosis without perforation. Patient was discharged home on 03/30/2023, and family had reported that she had been doing better since going home. She been having good bowel movements up until 4 days ago, when she started passing only small amounts of stool or liquid stool. She had seen Dr. Silverio in the office on 04/06/23. she also seems to have decreased appetite. On 04/08/2023 she had developed vomiting. This was occasionally projectile. Due to change in bowel habits and vomiting patient was brought to ER for evaluation. Work-up in the emergency department included CT scan which revealed findings suspicious for mid small bowel obstruction with additional findings raising concern for complicated small bowel obstruction for which continued close follow-up recommended. Mild amount of pelvic ascites. Interval repair of cecal volvulus with 5 x 3 cm inflammatory mass situated just posterior-inferior to the site of surgical repair within the right lower quadrant. [facility] Disclaimer: The information contained in this section may have been updated after the patient was seen, as this information can be updated by other users. Medical History Autism HTN (hypertension) Hypoglycemia Surgical History Cecal volvulus History of colon resection Social History Smoking Status: Unknown if ever smoked alcohol intake: never substance use type: denies use current occupational status: disabled Travel in the last 8 weeks: None household members: family housing: house caffeine: Yes Meds Home Medications and Allergies Home Medications Medication Instructions Recorded Confirmed Type spironolactone 25 mg tablet 75 mg PO DAILY Fluid 01/16/19 04/09/23 History fexofenadine 180 mg tablet 180 mg PO HS Allergy Symptoms 03/22/23 04/09/23 History temazepam 15 mg capsule 15 mg PO HS sleep 03/22/23 04/09/23 History vitamins A,C,C-iuxj-jrrmzt 2,148 1 tab PO BID Supplement 03/22/23 04/09/23 History mcg-113 mg-45 mg-17.4 mg tablet (PreserVision AREDS) New Prescriptions to Start Prescriptions: Allergies Allergy/AdvReac Type Severity Reaction Status Date / Time losartan Allergy Verified 04/06/23 14:54 Exam (Inpt) Vital signs and Labs for Last 24 Hours: Temp Pulse Resp BP Pulse Ox O2 Del Method 99.6 F 79 16 110/51 L 92 L Room Air 04/10/23 07:54 04/10/23 07:54 04/10/23 07:54 04/10/23 07:54 04/10/23 07:54 04/10/23 07:54 Laboratory Results - last 24 hr 04/09/23 16:00: WBC 16.5 H, RBC 5.20, Hgb 14.3, Hct 44.7, MCV 85.9, MCH 27.4, MCHC 31.9, RDW 15.1, Plt Count 208, MPV 7.4, Neut % (Auto) 87.2 H, Lymph % (Auto) 6.9 L, [place] % (Auto) 4.9, Eos % (Auto) 0.9, Baso % (Auto) 0.1, Neut # (Auto) 14.4 H, Lymph # (Auto) 1.1, [place] # (Auto) 0.8, Eos # (Auto) 0.2, Baso # (Auto) 0.0, Total Counted 100, Neutrophils % (Manual) 87 H, Lymphocytes % (Manual) 6 L, Monocytes % (Manual) 7, Platelet Estimate Normal, RBC Morphology Normal, Sodium 138, Potassium 4.4, Chloride 95 L, Carbon Dioxide 36 H, Anion Gap 11.4, BUN 25 H, Creatinine 1.00, Estimated Creat Clear 41, Estimated GFR 55 L, Est GFR ( Amer) 67, Glucose 156 H, Lactate 1.3, Calcium 9.2, Total Bilirubin 0.
[2023-04-10 10:49] VITALS: BP 117/58; PULSE 82; RESP 16; TEMP 37.7; O2SAT 90
[2023-04-10 15:07] VITALS: BP 109/59; PULSE 73; RESP 16; TEMP 37.4; O2SAT 90
--- NOTE | 2023-04-10 18:14 | XR_ITS ---
PROCEDURE INFORMATION: Exam: XR Abdomen Exam date and time: 04/10/2023 6:32 PM Age: 68 years old Clinical indication: Device placement; Gi device; Nasogastric tube; Additional info: Verify ng tube placement TECHNIQUE: Imaging protocol: Radiologic exam of the abdomen. Views: Frontal supine view of the abdomen. 1 View. COMPARISON: CR XR KUB 04/09/2023 8:11 PM FINDINGS: Tubes, catheters and devices: Nasogastric tube tip projecting in the lateral aspect of the body of the stomach. Gastrointestinal tract: Persistent small bowel distension suspicious for possible obstruction. Findings have progressed. Bones/joints: Unremarkable. IMPRESSION: 1. Nasogastric tube tip projecting in the lateral aspect of the body of the stomach. 2. Persistent small bowel distension suspicious for possible obstruction. Findings have progressed.
--- NOTE | 2023-04-10 18:17 | PC.NURSE ---
NG tube pulled out. 16 slovenian ng tube inserted at bedside. KUB ordered to verify placement.
--- NOTE | 2023-04-10 18:38 | PC.NURSE ---
Patient able to follow commands. VS stable. Patient able to sit up in chair during evening. Abdomen still distended and some tenderness noted. Wound dressing changed at 1700. Some serosangiunous drainage noted on packed gauze but wound bed bright red.
[2023-04-10 20:00] VITALS: BP 120/58; PULSE 69; RESP 18; TEMP 36.4; O2SAT 97
--- NOTE | 2023-04-10 20:54 | XR_ITS ---
PROCEDURE INFORMATION: Exam: XR Abdomen Exam date and time: 04/10/2023 8:53 PM Age: 68 years old Clinical indication: Device placement; Gi device; Nasogastric tube; Additional info: Ng placement TECHNIQUE: Imaging protocol: Radiologic exam of the abdomen. Views: Frontal supine view of the abdomen. 1 View. COMPARISON: CR XR KUB 04/10/2023 6:32 PM FINDINGS: Tubes, catheters and devices: NG tube tip in the mid stomach. Lungs: In the lung bases there is atelectasis/pneumonia. Pleural spaces: Mild right pleural effusion versus pleural scarring. Gastrointestinal tract: Dilated loops of bowel concerning for bowel obstruction. Bones/joints: Unremarkable. IMPRESSION: 1. NG tube tip in the mid stomach. 2. Dilated loops of bowel concerning for bowel obstruction.
--- NOTE | 2023-04-10 21:09 | PC.NURSE ---
NG pulled out. [address] at 48. KUB verified.
--- NOTE | 2023-04-10 23:50 | PC.NURSE ---
bed alarm on per family request.
[2023-04-11] VITALS (10 sets, daily range): BP systolic 103–140; BP diastolic 52–91; PULSE 62–114; RESP 16–18; TEMP 36.3–37.4; O2SAT 92–98; BMI 24.6
--- NOTE | 2023-04-11 00:35 | PC.NURSE ---
rounded on pt resting comfortably in bed. NG secure replaced near 2300 04/10 due to minor nasal blood-tinged discharge on silk tape r/t. family member at bedside.
--- NOTE | 2023-04-11 03:31 | PC.NURSE ---
rounded on pt. abd dsg c/d/i, ng tube patent, clws, 48cm, no bloody tinged discharge present, ng tube secure c/d/i
--- NOTE | 2023-04-11 06:17 | P.PN_ITS ---
Subjective Narrative: Pt resting Exam Data for Last 24 hours Vital signs and Labs for Last 24 Hours: Temp Pulse Resp BP Pulse Ox O2 Del Method 99.1 F 78 18 136/62 96 Room Air 04/11/23 04:00 04/11/23 04:00 04/11/23 04:00 04/11/23 04:00 04/11/23 04:00 04/11/23 06:12 Laboratory Results - last 24 hr 04/10/23 06:52: WBC 8.8 D, RBC 4.00 L, Hgb 11.5 L D, Hct 34.7 L, MCV 86.8, MCH 28.9, MCHC 33.2, RDW 15.4, Plt Count 155 D, MPV 7.3 L, Neut % (Auto) 80.9 H, Lymph % (Auto) 9.6 L, [place] % (Auto) 7.8, Eos % (Auto) 1.4, Baso % (Auto) 0.2, Neut # (Auto) 7.1, Lymph # (Auto) 0.8, [place] # (Auto) 0.7, Eos # (Auto) 0.1, Baso # (Auto) 0.0, Sodium 137, Potassium 4.0, Chloride 100, Carbon Dioxide 35 H, Anion Gap 6.0, BUN 23 H, Creatinine 1.10 H, Estimated Creat Clear 36, Estimated GFR 49 L, Est GFR ( Amer) 60, Glucose 92 D, Calcium 8.1 L, Phosphorus 3.2, Magnesium 2.0, Total Bilirubin 0.8, AST 29, ALT 20 D, Alkaline Phosphatase 87, Total Protein 5.3 L, Albumin 3.0 L D, Globulin 2.3, Albumin/Globulin Ratio 1.3 I & O for Last 24 hours: Intake & Output 04/08/23 04/09/23 04/10/23 04/11/23 11:59 11:59 11:59 11:59 Intake Total 1665 / 1665 579 / 579 Output Total 1102 / 1102 200 / 200 Balance 563 / 563 379 / 379 Weight 103 lb 5 oz 102 lb Constitutional Constitutional: no acute distress Progress Note: A&P Assessment and plan (1) Small bowel obstruction: Status: Acute Assessment and plan: Tentatively plan SBFT today. (2) Cecal volvulus: Status: Acute (3) Status post colon resection: Status: Acute (4) Diverticulosis: Status: Acute (5) Open wound anterior abdominal wall: Problem details: Status post hematoma evacuation Status: Acute (6) Developmental delay, borderline: Status: Acute (7) Autism: Status: Acute (8) HTN (hypertension): Status: Acute
[2023-04-11 06:48] LABS: Basophils % 0.2 % (0.1-2.0); Eosinophils # 0.1 K/mm3 (0.0-0.4); Eosinophils % 0.7 % (0.1-12.0); Hematocrit 35.8 % (37.0-47.0); Hemoglobin 11.2 g/dL (12.2-16.2); Lymphocytes # 1.2 K/mm3 (0.7-4.5); Lymphocytes % 12.6 % (10-50); Mean Corpuscular HGB Conc 31.3 g/dL (31.8-35.4); Mean Corpuscular Volume 89.3 fl (81-99); Mean Platelet Volume 7.4 fl (7.4-10.4); Monocytes # 0.7 K/mm3 (0.1-1.0); Monocytes % 7.6 % (1.7-9.3); Neutrophils # 7.6 K/mm3 (1.8-7.8); Neutrophils % 78.8 % (37.0-80.0); Platelet Count 120 K/mm3 (142-424); Red Blood Count 4.01 M/mm3 (4.20-5.40); Red Cell Distribution Width 14.8 % (11.5-17.5); White Blood Count 9.6 K/mm3 (4.8-10.8)
[2023-04-11 06:58] LABS: Alanine Aminotransferase 19 U/L (12-78); Albumin Level 2.9 g/dl (3.5-5.0); Albumin/Globulin Ratio 1.4 (1.1-1.8); Alkaline Phosphatase 84 U/L (38-126); Anion Gap 13.7 mEq/L (5-15); Aspartate Amino Transferase 29 U/L (14-36); Bilirubin,Total 0.7 mg/dl (0.2-1.3); Blood Urea Nitrogen 28 mg/dl (7-17); Calcium 7.9 mg/dl (8.4-10.2); Carbon Dioxide 27 mmol/L (22.0-30.0); Chloride 105 mmol/L (98-107); Creatinine Clearance Estimated 32 mL/min (50-200); Estimated Glomerular Filt Rate 45 ml/min (>60); GFR (African American) 54 ML/MIN (>60); Globulin 2.1 g/dL (1.3-3.2); Glucose 63 mg/dl (74-100); Magnesium 2.2 mg/dl (1.6-2.3); Potassium 3.7 mmoL/L (3.5-5.1); Sodium 142 mmol/L (136-145)
--- NOTE | 2023-04-11 08:00 | PC.NURSE ---
NG tube clamped for Small Bowel Follow through.
--- NOTE | 2023-04-11 11:00 | PC.NURSE ---
Small bowel Follow Through rescheduled for 04/12/2023. NG tube reconnected to CLWS.
--- NOTE | 2023-04-11 12:13 | PC.NURSE ---
courtesy tech note: pt is lying in bed sleeping. family is at BS
--- NOTE | 2023-04-11 13:28 | EXP.SURG.PN ---
Subjective Patient reports: no new complaints Narrative: No evidence of any bowel function. Exam Data for Last 24 hours Vital signs and Labs for Last 24 Hours: Temp Pulse Resp BP Pulse Ox O2 Del Method 98.7 F 75 17 127/64 96 Room Air 04/11/23 11:01 04/11/23 11:01 04/11/23 11:01 04/11/23 11:01 04/11/23 11:04/11/23 11:01 Laboratory Results - last 24 hr 04/11/23 05:50: WBC 9.6, RBC 4.01 L, Hgb 11.2 L, Hct 35.8 L, MCV 89.3, MCH 28.0, MCHC 31.3 L, RDW 14.8, Plt Count 120 L, MPV 7.4, Neut % (Auto) 78.8, Lymph % (Auto) 12.6, [place] % (Auto) 7.6, Eos % (Auto) 0.7, Baso % (Auto) 0.2, Neut # (Auto) 7.6, Lymph # (Auto) 1.2, [place] # (Auto) 0.7, Eos # (Auto) 0.1, Baso # (Auto) 0.0, Sodium 142, Potassium 3.7, Chloride 105, Carbon Dioxide 27, Anion Gap 13.7, BUN 28 H, Creatinine 1.20 H, Estimated Creat Clear 32, Estimated GFR 45 L, Est GFR ( Amer) 54 L, Glucose 63 L D, Calcium 7.9 L, Magnesium 2.2, Total Bilirubin 0.7, AST 29, ALT 19, Alkaline Phosphatase 84, Total Protein 5.0 L, Albumin 2.9 L, Globulin 2.1, Albumin/Globulin Ratio 1.4 I & O for Last 24 hours: Intake & Output 04/09/23 04/10/23 04/11/23 04/12/23 11:59 11:59 11:59 11:59 Intake Total 1665 / 1665 579 / 579 0 / 0 Output Total 1102 / 1102 400 / 400 Balance 563 / 563 179 / 179 0 / 0 Weight 103 lb 5 oz 102 lb 101 lb 15.985 oz *Routine Abdominal Exam Abdominal: Present soft; Absent tenderness Progress Note: A&P Assessment and plan (1) Small bowel obstruction: Status: Acute Assessment and plan: Tentative plan was for possible small bowel follow-through today. Due to radiology staff unavailability plan to proceed tomorrow with this. (2) Cecal volvulus: Status: Acute (3) Status post colon resection: Status: Acute (4) Diverticulosis: Status: Acute (5) Open wound anterior abdominal wall: Problem details: Status post hematoma evacuation Status: Acute (6) Developmental delay, borderline: Status: Acute (7) Autism: Status: Acute (8) HTN (hypertension): Status: Acute
--- NOTE | 2023-04-11 14:26 | EXP.ACUTE.PN ---
Subjective *Date: 04/11/23 *Time: 14:26 Interval history: Remained afebrile overnight. No nausea or vomiting. NG tube came out last night necessitating replacement. Still no bowel movement or passing gas. Making urine. Sister at bedside on rounds. Patient pleasant and cooperative Medical Exam Vital signs and Labs for Last 24 Hours: Vital Signs Temp Pulse Resp BP Pulse Ox O2 Del Method 04/11/23 11:00 Room Air 04/11/23 11:01 98.7 F 75 17 127/64 96 Room Air 04/11/23 08:00 114 H 92 L Room Air 04/11/23 10:28 Room Air 04/11/23 07:31 97.3 F L 114 H 17 140/91 H 92 L Room Air 04/11/23 06:12 Room Air 04/11/23 04:42 Room Air 04/11/23 04:00 99.1 F 78 18 136/62 96 Room Air 04/11/23 02:23 Room Air 04/11/23 00:39 Room Air 04/11/23 00:00 99.1 F 89 18 114/68 96 Room Air 04/10/23 23:00 Room Air 04/10/23 21:00 Room Air 04/10/23 20:00 Room Air 04/10/23 20:00 97.6 F 69 18 120/58 L 97 Room Air 04/10/23 18:34 Room Air 04/10/23 16:51 Room Air 04/10/23 15:06 Room Air 04/10/23 15:07 99.3 F 73 16 109/59 L 90 L Room Air Intake and Output 04/10/23 04/11/23 04/11/23 23:59 07:59 15:59 Intake Total 579 / 579 0 / 579 Output Total 400 / 400 0 / 400 Balance 179 / 179 0 / 179 Intake: Intake, Oral Amount 0 / 0 0 / 0 Intake, Total IV Amount 579 / 579 Lactated Ringers 1000ML 1,000 479 / 479 ml @ 50 mls/hr IV .Q20H DILIA Rx# :[id number] Piperacillin/Tazo 4.5 gm In 0.9 100 / 100 % Sodium Chloride 100 ml @ 200 mls/hr IV Q8H DILIA Rx#:[id number] Output: Output, Urine Amount 200 / 200 0 / 200 Output, Gastric Drainage Amount 200 / 200 Right Nare 200 / 200 Other: Number of Unmeasured Voids 0 Weight 46.266 kg 46.266 kg Patient Weight 04/11/23 23:59 Weight 46.266 kg Laboratory Results - last 24 hr 04/11/23 05:50: WBC 9.6, RBC 4.01 L, Hgb 11.2 L, Hct 35.8 L, MCV 89.3, MCH 28.0, MCHC 31.3 L, RDW 14.8, Plt Count 120 L, MPV 7.4, Neut % (Auto) 78.8, Lymph % (Auto) 12.6, [place] % (Auto) 7.6, Eos % (Auto) 0.7, Baso % (Auto) 0.2, Neut # (Auto) 7.6, Lymph # (Auto) 1.2, [place] # (Auto) 0.7, Eos # (Auto) 0.1, Baso # (Auto) 0.0, Sodium 142, Potassium 3.7, Chloride 105, Carbon Dioxide 27, Anion Gap 13.7, BUN 28 H, Creatinine 1.20 H, Estimated Creat Clear 32, Estimated GFR 45 L, Est GFR ( Amer) 54 L, Glucose 63 L D, Calcium 7.9 L, Magnesium 2.2, Total Bilirubin 0.7, AST 29, ALT 19, Alkaline Phosphatase 84, Total Protein 5.0 L, Albumin 2.9 L, Globulin 2.1, Albumin/Globulin Ratio 1.4 I & O for Labs for Last 24 Hours: Intake & Output 04/08/23 04/09/23 04/10/23 04/11/23 23:59 23:59 23:59 23:59 Intake Total 1000 / 1100 665 / 915 579 / 579 Output Total 1101 / 1301 400 / 400 Balance 999 / 1099 -436 / -386 179 / 179 Weight 46.89 kg 46.862 kg 46.266 kg Constitutional: Present no acute distress, average body habitus and chronically ill appearing Head: Present atraumatic and normocephalic Comment:: NG in right nare Neck: Present normal inspection Respiratory: Present diminished air movement and normal respiratory effort Comment:: Nonverbal to me but follows commands or questions asked by sister Cardiac: Present Reg Rate and Rhythm GI: Present soft, distention, tenderness and diminished bowel sounds; Absent guarding or rebound Comments:: Minimal tenderness around the laparotomy incision, minimal dehiscence of distal portion of incision. No significant erythema or bleeding. Rectal (female): Present deferred (female): Present deferred Comment:: Minimal pitting edema of bilateral lower extremities Skin: Present intact Neuro: Present alert and moves all extremities Comment:: Nonverbal to me. Assessment and Plan *Assessment and plan (1) Small bowel obstruction: Status: Acute Category: Medical Code(s): K56.609 - Unspecified intestinal obstruction
--- NOTE | 2023-04-11 17:01 | PC.WOUNDNOTE ---
Left lower leg
--- NOTE | 2023-04-11 17:02 | PC.WOUNDNOTE ---
Left buttock, stage 2
[2023-04-12 03:43] VITALS: BP 143/67; PULSE 74; RESP 17; TEMP 37; O2SAT 98; BMI 25.2
--- NOTE | 2023-04-12 06:00 | FL_ITS ---
FINAL REPORT CLINICAL HISTORY: surgery on twisted bowel 03/25 and now. sbo 1.19 fluoro time FINDINGS: SMALL BOWEL FOLLOW THROUGH HISTORY: Small bowel obstruction. PROCEDURE: Gastrografin was placed through the patient's nasogastric tube. Spot and overhead films were obtained. FINDINGS: The electrical and electronic assembler film is unremarkable. The transit time to the colon is normal. The mucosal fold pattern is normal. Spot images of the terminal ileum are unremarkable. FLUOROSCOPY TIME: 79 seconds IMPRESSION: Normal small bowel follow-through. Films reviewed , interpreted and dictated by Dr. Padgett Transcribed by Curtis Angulo PA-C. Reviewed, Interpreted and Dictated by Eder Padgett III, MD Transcribed by OLIVIA Lind Authenticated and [facility]
--- NOTE | 2023-04-12 06:33 | EXP.SURG.PN ---
Subjective Patient reports: no new complaints Exam Data for Last 24 hours Vital signs and Labs for Last 24 Hours: Temp Pulse Resp BP Pulse Ox O2 Del Method 98.6 F 74 17 143/67 H 98 Room Air 04/12/23 03:43 04/12/23 03:43 04/12/23 03:43 04/12/23 03:43 04/12/23 03:43 04/12/23 03:43 Laboratory Results - last 24 hr 04/11/23 05:50: WBC 9.6, RBC 4.01 L, Hgb 11.2 L, Hct 35.8 L, MCV 89.3, MCH 28.0, MCHC 31.3 L, RDW 14.8, Plt Count 120 L, MPV 7.4, Neut % (Auto) 78.8, Lymph % (Auto) 12.6, [place] % (Auto) 7.6, Eos % (Auto) 0.7, Baso % (Auto) 0.2, Neut # (Auto) 7.6, Lymph # (Auto) 1.2, [place] # (Auto) 0.7, Eos # (Auto) 0.1, Baso # (Auto) 0.0, Sodium 142, Potassium 3.7, Chloride 105, Carbon Dioxide 27, Anion Gap 13.7, BUN 28 H, Creatinine 1.20 H, Estimated Creat Clear 32, Estimated GFR 45 L, Est GFR ( Amer) 54 L, Glucose 63 L D, Calcium 7.9 L, Magnesium 2.2, Total Bilirubin 0.7, AST 29, ALT 19, Alkaline Phosphatase 84, Total Protein 5.0 L, Albumin 2.9 L, Globulin 2.1, Albumin/Globulin Ratio 1.4 I & O for Last 24 hours: Intake & Output 04/09/23 04/10/23 04/11/23 04/12/23 11:59 11:59 11:59 11:59 Intake Total 1665 / 1665 579 / 579 750 / 750 Output Total 1102 / 1102 400 / 400 350 / 350 Balance 563 / 563 179 / 179 400 / 400 Weight 103 lb 5 oz 102 lb 104 lb 11.2 oz Constitutional Constitutional: no acute distress Comments: Resting Progress Note: A&P Assessment and plan (1) Small bowel obstruction: Status: Acute Assessment and plan: Plan for small bowel follow through today pending radiologist availability (2) Cecal volvulus: Status: Acute (3) Status post colon resection: Status: Acute (4) Diverticulosis: Status: Acute (5) Open wound anterior abdominal wall: Problem details: Status post hematoma evacuation Status: Acute (6) Developmental delay, borderline: Status: Acute (7) Autism: Status: Acute (8) HTN (hypertension): Status: Acute
[2023-04-12 07:00] LABS: Basophils % 0.2 % (0.1-2.0); Eosinophils # 0.3 K/mm3 (0.0-0.4); Eosinophils % 3.5 % (0.1-12.0); Hematocrit 35.1 % (37.0-47.0); Hemoglobin 10.8 g/dL (12.2-16.2); Lymphocytes % 12.3 % (10-50); Mean Corpuscular HGB Conc 30.7 g/dL (31.8-35.4); Mean Corpuscular Hemoglobin 27.7 pg (27.0-31.2); Mean Corpuscular Volume 90.1 fl (81-99); Mean Platelet Volume 7.3 fl (7.4-10.4); Monocytes # 0.5 K/mm3 (0.1-1.0); Monocytes % 5.9 % (1.7-9.3); Neutrophils # 6.3 K/mm3 (1.8-7.8); Neutrophils % 78.2 % (37.0-80.0); Platelet Count 136 K/mm3 (142-424); Red Blood Count 3.89 M/mm3 (4.20-5.40); Red Cell Distribution Width 14.8 % (11.5-17.5); White Blood Count 8.1 K/mm3 (4.8-10.8)
[2023-04-12 07:10] LABS: Chloride 107 mmol/L (98-107)
[2023-04-12 07:11] LABS: Potassium 3.2 mmoL/L (3.5-5.1); Sodium 144 mmol/L (136-145)
[2023-04-12 07:13] LABS: Alanine Aminotransferase 19 U/L (12-78); Alkaline Phosphatase 84 U/L (38-126); Anion Gap 7.2 mEq/L (5-15); Aspartate Amino Transferase 26 U/L (14-36); Bilirubin,Total 0.5 mg/dl (0.2-1.3); Blood Urea Nitrogen 22 mg/dl (7-17); Carbon Dioxide 33 mmol/L (22.0-30.0); Creatinine Clearance Estimated 36 mL/min (50-200); Estimated Glomerular Filt Rate 49 ml/min (>60); GFR (African American) 60 ML/MIN (>60)
[2023-04-12 07:14] LABS: Magnesium 2.3 mg/dl (1.6-2.3)
[2023-04-12 07:14] LABS: Albumin Level 2.7 g/dl (3.5-5.0); Albumin/Globulin Ratio 1.2 (1.1-1.8); Calcium 8.3 mg/dl (8.4-10.2); Globulin 2.3 g/dL (1.3-3.2); Glucose 107 mg/dl (74-100)
[2023-04-12 07:24] VITALS: BP 142/68; PULSE 75; RESP 17; TEMP 36.8; O2SAT 94
--- NOTE | 2023-04-12 07:38 | EXP.PN ---
Subjective *Date: 04/12/23 *Time: 18:08 Interval history: She had a small bm last night this morning passed gas less abdominal pain Exam Data for Last 24 hours Vital signs and Labs for Last 24 Hours: Temp Pulse Resp BP Pulse Ox O2 Del Method 98.2 F 75 17 142/68 H 94 L Room Air 04/12/23 07:24 04/12/23 07:24 04/12/23 07:24 04/12/23 07:24 04/12/23 07:24 04/12/23 07:24 Laboratory Results - last 24 hr 04/12/23 06:32: Magnesium 2.3 04/12/23 06:37: WBC 8.1, RBC 3.89 L, Hgb 10.8 L, Hct 35.1 L, MCV 90.1, MCH 27.7, MCHC 30.7 L, RDW 14.8, Plt Count 136 L, MPV 7.3 L, Neut % (Auto) 78.2, Lymph % (Auto) 12.3, [place] % (Auto) 5.9, Eos % (Auto) 3.5, Baso % (Auto) 0.2, Neut # (Auto) 6.3, Lymph # (Auto) 1.0, [place] # (Auto) 0.5, Eos # (Auto) 0.3, Baso # (Auto) 0.0, Sodium 144, Potassium 3.2 L, Chloride 107, Carbon Dioxide 33 H, Anion Gap 7.2, BUN 22 H, Creatinine 1.10 H, Estimated Creat Clear 36, Estimated GFR 49 L, Est GFR ( Amer) 60, Glucose 107 H, Calcium 8.3 L, Total Bilirubin 0.5, AST 26, ALT 19, Alkaline Phosphatase 84, Total Protein 5.0 L, Albumin 2.7 L, Globulin 2.3, Albumin/Globulin Ratio 1.2 I & O for Last 24 hours: Intake & Output 04/09/23 04/10/23 04/11/23 04/12/23 23:59 23:59 23:59 23:59 Intake Total 1000 / 1100 665 / 915 579 / 579 750 / 750 Output Total 1101 / 1301 650 / 650 100 / 100 Balance 999 / 1099 -436 / -386 -71 / -71 650 / 650 Weight 46.89 kg 46.862 kg 46.266 kg 47.491 kg Constitutional Constitutional: no acute distress *Routine HEENT Exam Head: Present normocephalic Eye: Present EOMI and PERRL ENT: Present mucous membranes moist Comments: NG tube *Routine Neck Exam Neck: Present supple; Absent lymphadenopathy *Routine Respiratory Exam Respiratory: Present CTA bilaterally *Routine Cardiovascular Exam Cardiovascular: Present RRR *Routine Abdominal Exam Abdominal: Present soft and distended; Absent tenderness *Routine Extremities Exam Extremities: Absent cyanosis, clubbing or edema *Routine Skin Exam Skin: Present warm; Absent rash *Routine Neurological Exam Neurological: Present alert and moving all extremities Assessment and Plan *Assessment and plan (1) Small bowel obstruction: Status: Acute Category: Medical Code(s): K56.609 - Unspecified intestinal obstruction, unspecified as to partial versus complete obstruction (2) Cecal volvulus: Status: Acute Category: Surgical Code(s): K56.2 - Volvulus (3) Status post colon resection: Status: Acute Category: Surgical Code(s): Z90.49 - Acquired absence of other specified parts of digestive tract (4) Diverticulosis: Status: Acute Category: Medical Code(s): K57.90 - Diverticulosis of intestine, part unspecified, without perforation or abscess without bleeding (5) Open wound anterior abdominal wall: Problem Comment: Status post hematoma evacuation Status: Acute Qualifiers: Encounter type: subsequent encounter Qualified Code(s): S31.109D - Unspecified open wound of abdominal wall, unspecified quadrant without penetration into peritoneal cavity, subsequent encounter Category: Medical Code(s): S31.109A - Unspecified open wound of abdominal wall, unspecified quadrant without penetration into peritoneal cavity, initial encounter (6) Developmental delay, borderline: Status: Acute Category: Medical Code(s): R62.50 - Unspecified lack of expected normal physiological development in childhood (7) Autism: Status: Acute Category: Medical Code(s): F84.0 - Autistic disorder (8) HTN (hypertension): Status: Acute Qualifiers: Hypertension type: primary hypertension Qualified Code(s): I10 - Essential (primary) hypertension Category: Medical Code(s): I10 - Essential (primary) hypertension Plan Ms. Dawson is a 68 year old female with a past medical history of hype
--- NOTE | 2023-04-12 08:15 | PC.NURSE ---
Report received from Rochelle RN- went in to assess patient- patient down with radiology at this time
[2023-04-12 11:51] VITALS: BP 172/86; PULSE 75; RESP 18; TEMP 36.9; O2SAT 96
--- NOTE | 2023-04-12 15:03 | PC.NURSE ---
NG removed at 1450, Pt tolerated well, pt given ice chips and apple juice with instructions to sip slowly.
[2023-04-12 15:40] VITALS: BP 159/82; PULSE 73; RESP 17; TEMP 36.5; O2SAT 95
--- NOTE | 2023-04-12 16:10 | PC.NURSE ---
No changes noted from previous assessment. Patient has remained up to chair this shift. Patient has denied pain this shift. Voiding freely per BSC and has had 2 loose bowel movements. Bowel sounds active x4 and lungs CTA. Ng removed this shift and patient has tolerated sips and chips thus far. Midline incision with steri strips noted and covered in dressing towards bottom. no drainage. will change around 8440-1035. No edema noted. No needs at this time per patient. Pt remains non-verbal, but will answer yes no questions by shaking her head. call light within reach.
--- NOTE | 2023-04-12 18:17 | PC.NURSE ---
all charting and care done under my direct supervision.
[2023-04-12 20:00] VITALS: BP 131/62; PULSE 59; RESP 17; TEMP 36.5; O2SAT 97
[2023-04-13] VITALS: BP 131/65; PULSE 74; RESP 19; TEMP 36.7; O2SAT 94
[2023-04-13 04:00] VITALS: BP 138/70; PULSE 87; RESP 18; TEMP 36.9; O2SAT 95; BMI 24.7
--- NOTE | 2023-04-13 05:04 | PC.NURSE ---
Patient has rested well tonight. Has had an apple juice and did well no issues with it. No other issues were noted by patient, RN, or family
--- NOTE | 2023-04-13 07:17 | EXP.SURG.PN ---
Subjective Patient reports: no new complaints and bowel movement Exam Data for Last 24 hours Vital signs and Labs for Last 24 Hours: Temp Pulse Resp BP Pulse Ox O2 Del Method 98.4 F 87 18 138/70 95 Room Air 04/13/23 04:00 04/13/23 04:00 04/13/23 04:00 04/13/23 04:00 04/13/23 04:00 04/13/23 06:57 I & O for Last 24 hours: Intake & Output 04/10/23 04/11/23 04/12/23 04/13/23 11:59 11:59 11:59 11:59 Intake Total 1665 / 1665 579 / 579 750 / 750 840 / 840 Output Total 1102 / 1102 400 / 400 350 / 350 0 / 0 Balance 563 / 563 179 / 179 400 / 400 840 / 840 Weight 103 lb 5 oz 102 lb 104 lb 11.2 oz 102 lb 3.2 oz Constitutional Constitutional: no acute distress *Routine Respiratory Exam Respiratory: Absent respiratory distress *Routine Cardiovascular Exam Cardiovascular: Absent tachycardia *Routine Abdominal Exam Abdominal: Present soft Progress Note: A&P Assessment and plan (1) Ileus, postoperative: Status: Acute Assessment and plan: Slowly improving. Clear liquid diet without carbonation ordered (2) Status post colon resection: Status: Acute (3) Open wound anterior abdominal wall: Problem details: Status post hematoma evacuation Status: Acute Assessment and plan: Continue dressing changes
[2023-04-13 07:38] VITALS: BP 153/76; PULSE 71; RESP 16; TEMP 36.8; O2SAT 98
[2023-04-13 07:46] LABS: Basophils % 0.2 % (0.1-2.0); Eosinophils # 0.1 K/mm3 (0.0-0.4); Eosinophils % 0.9 % (0.1-12.0); Hematocrit 37.5 % (37.0-47.0); Hemoglobin 11.7 g/dL (12.2-16.2); Lymphocytes % 16.9 % (10-50); Mean Corpuscular Hemoglobin 27.8 pg (27.0-31.2); Mean Corpuscular Volume 89.7 fl (81-99); Mean Platelet Volume 7.8 fl (7.4-10.4); Monocytes # 0.5 K/mm3 (0.1-1.0); Neutrophils # 4.6 K/mm3 (1.8-7.8); Platelet Count 158 K/mm3 (142-424); Red Blood Count 4.19 M/mm3 (4.20-5.40); Red Cell Distribution Width 14.5 % (11.5-17.5); White Blood Count 6.2 K/mm3 (4.8-10.8)
[2023-04-13 08:10] LABS: Chloride 116 mmol/L (98-107); Potassium 3.1 mmoL/L (3.5-5.1)
[2023-04-13 08:13] LABS: Alanine Aminotransferase 21 U/L (12-78); Albumin/Globulin Ratio 1.3 (1.1-1.8); Alkaline Phosphatase 83 U/L (38-126); Anion Gap 6.1 mEq/L (5-15); Aspartate Amino Transferase 26 U/L (14-36); Bilirubin,Total 0.3 mg/dl (0.2-1.3); Blood Urea Nitrogen 18 mg/dl (7-17); Carbon Dioxide 36 mmol/L (22.0-30.0); Creatinine Clearance Estimated 39 mL/min (50-200); Estimated Glomerular Filt Rate 55 ml/min (>60); GFR (African American) 67 ML/MIN (>60); Globulin 2.3 g/dL (1.3-3.2); Total Protein,Serum 5.3 g/dl (6.3-8.2)
[2023-04-13 08:14] LABS: Calcium 8.7 mg/dl (8.4-10.2); Glucose 125 mg/dl (74-100); Magnesium 2.3 mg/dl (1.6-2.3)
[2023-04-13 08:20] LABS: Sodium 155 mmol/L (136-145)
--- NOTE | 2023-04-13 08:51 | EXP.PN ---
Subjective *Date: 04/13/23 *Time: 16:03 Interval history: She has been eating a full liquid diet and hasn't had issues She's had loose BMs No pain slept well last night. Exam Data for Last 24 hours Vital signs and Labs for Last 24 Hours: Temp Pulse Resp BP Pulse Ox O2 Del Method 98.3 F 71 16 153/76 H 98 Room Air 04/13/23 07:38 04/13/23 07:38 04/13/23 07:38 04/13/23 07:38 04/13/23 07:38 04/13/23 07:38 Laboratory Results - last 24 hr 04/13/23 07:30: WBC 6.2, RBC 4.19 L, Hgb 11.7 L, Hct 37.5, MCV 89.7, MCH 27.8, MCHC 31.0 L, RDW 14.5, Plt Count 158, MPV 7.8, Neut % (Auto) 74.0, Lymph % (Auto) 16.9, Dickey % (Auto) 8.0, Eos % (Auto) 0.9, Baso % (Auto) 0.2, Neut # (Auto) 4.6, Lymph # (Auto) 1.0, Dickey # (Auto) 0.5, Eos # (Auto) 0.1, Baso # (Auto) 0.0, Sodium 155 H*, Potassium 3.1 L, Chloride 116 H, Carbon Dioxide 36 H, Anion Gap 6.1, BUN 18 H, Creatinine 1.00, Estimated Creat Clear 39, Estimated GFR 55 L, Est GFR ( Amer) 67, Glucose 125 H, Calcium 8.7, Phosphorus 2.0 L, Magnesium 2.3, Total Bilirubin 0.3, AST 26, ALT 21, Alkaline Phosphatase 83, Total Protein 5.3 L, Albumin 3.0 L D, Globulin 2.3, Albumin/Globulin Ratio 1.3 I & O for Last 24 hours: Intake & Output 04/10/23 04/11/23 04/12/23 04/13/23 23:59 23:59 23:59 23:59 Intake Total 665 / 915 579 / 579 1590 / 1590 1146 / 1146 Output Total 1101 / 1301 650 / 650 100 / 100 Balance -436 / -386 -71 / -71 1490 / 1490 1146 / 1146 Weight 46.862 kg 46.266 kg 47.491 kg 46.357 kg Constitutional Constitutional: no acute distress *Routine HEENT Exam Head: Present normocephalic Eye: Present EOMI and PERRL ENT: Present mucous membranes moist Comments: NG tube *Routine Neck Exam Neck: Present supple; Absent lymphadenopathy *Routine Respiratory Exam Respiratory: Present CTA bilaterally *Routine Cardiovascular Exam Cardiovascular: Present RRR *Routine Abdominal Exam Abdominal: Present soft and distended; Absent tenderness *Routine Extremities Exam Extremities: Absent cyanosis, clubbing or edema *Routine Skin Exam Skin: Present warm; Absent rash *Routine Neurological Exam Neurological: Present alert and moving all extremities Assessment and Plan *Assessment and plan (1) Small bowel obstruction: Status: Deleted Category: Medical Code(s): K56.609 - Unspecified intestinal obstruction, unspecified as to partial versus complete obstruction (2) Cecal volvulus: Status: Acute Category: Surgical Code(s): K56.2 - Volvulus (3) Status post colon resection: Status: Acute Category: Surgical Code(s): Z90.49 - Acquired absence of other specified parts of digestive tract (4) Diverticulosis: Status: Acute Category: Medical Code(s): K57.90 - Diverticulosis of intestine, part unspecified, without perforation or abscess without bleeding (5) Open wound anterior abdominal wall: Problem Comment: Status post hematoma evacuation Status: Acute Qualifiers: Encounter type: subsequent encounter Qualified Code(s): S31.109D - Unspecified open wound of abdominal wall, unspecified quadrant without penetration into peritoneal cavity, subsequent encounter Category: Medical Code(s): S31.109A - Unspecified open wound of abdominal wall, unspecified quadrant without penetration into peritoneal cavity, initial encounter (6) Developmental delay, borderline: Status: Acute Category: Medical Code(s): R62.50 - Unspecified lack of expected normal physiological development in childhood (7) Autism: Status: Acute Category: Medical Code(s): F84.0 - Autistic disorder (8) HTN (hypertension): Status: Acute Qualifiers: Hypertension type: primary hypertension Qualified Code(s): I10 - Essential (primary) hypertension Category: Medical Code(s): I10 - Essential (primary) hypertension Plan Ms. Dawson is a 68 year old fe
--- NOTE | 2023-04-13 11:09 | DIET.NUTRFU ---
Patient continues on clear liquids today, tolerating diet well yesterday. BM reported yesterday and this morning. Added Boost Breeze to lunch and dinner trays to aid in meeting energy and protein needs while on clear liquids. Wt is stable at 46kg. Labs reviewed, sodium at 155, phosphorus at 2.0. Will continue to monitor patient's nutritional status and changes to diet order.
[2023-04-13 11:16] VITALS: BP 134/88; PULSE 69; RESP 16; TEMP 36.6; O2SAT 96
--- NOTE | 2023-04-13 11:26 | SW/DCPLANNER ---
Addendum entered by Geno Quiñones 04/18/23 09:33: Patient information/order to resume home health [facility] will be faxed to [facility] today. Original Note: Patient is currently established w/ [facility]. I have updated [facility] that patient is inpatient and I will follow up at time of discharge. Discharge date is unknown at this time.
[2023-04-13 13:38] LABS: Sodium 150 mmol/L (136-145)
[2023-04-13 15:21] VITALS: BP 136/79; PULSE 73; RESP 16; TEMP 36.5; O2SAT 95
--- NOTE | 2023-04-13 18:18 | PC.NURSE ---
Potassium level abnormal replaced per MD orders and recheck in AM, No other changes noted from previous assessment. Pt has been up to chair for half the day and in bed to nap periodically. Pt is tolerating a clear liquid diet while using sips with assistance from family member. Pt has had 1 moderate BM this shift and bowel sounds active in all four quadrants. Pt abdominal dressing changed with no excess drainage or changes in appearance or smell.
[2023-04-13 20:00] VITALS: BP 144/79; PULSE 69; RESP 18; TEMP 36.6; O2SAT 96
[2023-04-14] VITALS: BP 133/72; PULSE 95; RESP 20; TEMP 36.8; O2SAT 95
--- NOTE | 2023-04-14 02:18 | PC.NURSE ---
PATIENT RESTING WELL. 02 SATS 95-96% ON RM AIR. NAD. NO INDICATIONS OF PAIN. SISTER AT BEDSIDE. VS STABLE/AFEBRILE. DRSG TO ABDOMEN C/D/I. TOLERSTING CLEAR LIQS. BOWEL SOUNDS PRESENT.
[2023-04-14 04:00] VITALS: BP 152/69; PULSE 73; RESP 19; TEMP 36.8; O2SAT 98; BMI 26.0
[2023-04-14 07:01] LABS: Chloride 115 mmol/L (98-107); Sodium 147 mmol/L (136-145)
[2023-04-14 07:02] LABS: Potassium 4.1 mmoL/L (3.5-5.1)
[2023-04-14 07:04] LABS: Blood Urea Nitrogen 12 mg/dl (7-17); Creatinine Clearance Estimated 41 mL/min (50-200); Estimated Glomerular Filt Rate 71 ml/min (>60); GFR (African American) 86 ML/MIN (>60)
[2023-04-14 07:05] LABS: Anion Gap 6.1 mEq/L (5-15); Calcium 8.3 mg/dl (8.4-10.2); Carbon Dioxide 30 mmol/L (22.0-30.0); Glucose 91 mg/dl (74-100)
[2023-04-14 07:14] LABS: Phosphorous 1.3 mg/dl (2.5-4.5)
[2023-04-14 08:00] VITALS: BP 160/81; PULSE 73; RESP 20; TEMP 36.4; O2SAT 95
--- NOTE | 2023-04-14 09:17 | PC.NURSE ---
pt ambulated the length of the hallway with stand assist
--- NOTE | 2023-04-14 11:27 | EXP.SURG.PN ---
Subjective Narrative: Tolerated nasogastric tube out. Given clear liquid diet. Yesterday she had some early satiety with clear liquids but no vomiting. Tolerated better today. Liquid bowel movements. Exam Data for Last 24 hours Vital signs and Labs for Last 24 Hours: Temp Pulse Resp BP Pulse Ox O2 Del Method 97.6 F 73 20 160/81 H 95 Room Air 04/14/23 08:00 04/14/23 08:00 04/14/23 08:00 04/14/23 08:00 04/14/23 08:00 04/14/23 08:00 Laboratory Results - last 24 hr 04/13/23 13:25: Sodium 150 H 04/14/23 06:26: Sodium 147 H, Potassium 4.1 D, Chloride 115 H, Carbon Dioxide 30, Anion Gap 6.1, BUN 12 D, Creatinine 0.80, Estimated Creat Clear 41, Estimated GFR 71, Est GFR ( Amer) 86 D, Glucose 91 D, Calcium 8.3 L, Phosphorus 1.3 L D, Magnesium 2.0 D I & O for Last 24 hours: Intake & Output 04/11/23 04/12/23 04/13/23 04/14/23 11:59 11:59 11:59 11:59 Intake Total 579 / 579 750 / 750 1985 1313 / 1313 Output Total 400 / 400 350 / 350 0 / 0 0 / 0 Balance 179 / 179 400 / 400 1985 / 1313 Weight 102 lb 104 lb 11.2 oz 102 lb 3.2 oz 107 lb 14.4 oz *Routine Abdominal Exam Abdominal: Present soft Progress Note: A&P Assessment and plan (1) Small bowel obstruction: Status: Deleted Assessment and plan: Cautiously advance to full liquid diet. (2) Cecal volvulus: Status: Acute (3) Status post colon resection: Status: Acute (4) Diverticulosis: Status: Acute (5) Open wound anterior abdominal wall: Problem details: Status post hematoma evacuation Status: Acute (6) Developmental delay, borderline: Status: Acute (7) Autism: Status: Acute (8) HTN (hypertension): Status: Acute
--- NOTE | 2023-04-14 11:58 | EXP.PN ---
Subjective *Date: 04/14/23 *Time: 11:58 Interval history: No acute events overnight Liquid bowel movement earlier this morning No abdominal pain good appetite Exam Data for Last 24 hours Vital signs and Labs for Last 24 Hours: Temp Pulse Resp BP Pulse Ox O2 Del Method 97.6 F 73 20 160/81 H 95 Room Air 04/14/23 08:00 04/14/23 08:00 04/14/23 08:00 04/14/23 08:00 04/14/23 08:00 04/14/23 08:00 Laboratory Results - last 24 hr 04/13/23 13:25: Sodium 150 H 04/14/23 06:26: Sodium 147 H, Potassium 4.1 D, Chloride 115 H, Carbon Dioxide 30, Anion Gap 6.1, BUN 12 D, Creatinine 0.80, Estimated Creat Clear 41, Estimated GFR 71, Est GFR ( Amer) 86 D, Glucose 91 D, Calcium 8.3 L, Phosphorus 1.3 L D, Magnesium 2.0 D I & O for Last 24 hours: Intake & Output 04/11/23 04/12/23 04/13/23 04/14/23 23:59 23:59 23:59 23:59 Intake Total 579 / 579 1590 / 1590 2339 / 2459 120 / 120 Output Total 650 / 650 100 / 100 0 / 0 Balance -71 / -71 1490 / 1490 2339 / 2459 120 / 120 Weight 46.266 kg 47.491 kg 46.357 kg 48.943 kg Constitutional Constitutional: no acute distress *Routine HEENT Exam Head: Present normocephalic Eye: Present EOMI and PERRL ENT: Present mucous membranes moist Comments: NG tube *Routine Neck Exam Neck: Present supple; Absent lymphadenopathy *Routine Respiratory Exam Respiratory: Present CTA bilaterally *Routine Cardiovascular Exam Cardiovascular: Present RRR *Routine Abdominal Exam Abdominal: Present soft and distended; Absent tenderness *Routine Extremities Exam Extremities: Absent cyanosis, clubbing or edema *Routine Skin Exam Skin: Present warm; Absent rash *Routine Neurological Exam Neurological: Present alert and moving all extremities Assessment and Plan *Assessment and plan (1) Small bowel obstruction: Status: Deleted Category: Medical Code(s): K56.609 - Unspecified intestinal obstruction, unspecified as to partial versus complete obstruction (2) Cecal volvulus: Status: Acute Category: Surgical Code(s): K56.2 - Volvulus (3) Status post colon resection: Status: Acute Category: Surgical Code(s): Z90.49 - Acquired absence of other specified parts of digestive tract (4) Diverticulosis: Status: Acute Category: Medical Code(s): K57.90 - Diverticulosis of intestine, part unspecified, without perforation or abscess without bleeding (5) Open wound anterior abdominal wall: Problem Comment: Status post hematoma evacuation Status: Acute Qualifiers: Encounter type: subsequent encounter Qualified Code(s): S31.109D - Unspecified open wound of abdominal wall, unspecified quadrant without penetration into peritoneal cavity, subsequent encounter Category: Medical Code(s): S31.109A - Unspecified open wound of abdominal wall, unspecified quadrant without penetration into peritoneal cavity, initial encounter (6) Developmental delay, borderline: Status: Acute Category: Medical Code(s): R62.50 - Unspecified lack of expected normal physiological development in childhood (7) Autism: Status: Acute Category: Medical Code(s): F84.0 - Autistic disorder (8) HTN (hypertension): Status: Acute Qualifiers: Hypertension type: primary hypertension Qualified Code(s): I10 - Essential (primary) hypertension Category: Medical Code(s): I10 - Essential (primary) hypertension Plan Ms. 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 #small bowel obstruction #hypernatremia, resolved #hypophosphatemia #hypokalemia #hypertension #intellectual disability #insomnia The patient had small b
[2023-04-14 12:00] VITALS: BP 145/72; PULSE 69; RESP 20; TEMP 36.4; O2SAT 97
--- NOTE | 2023-04-14 12:00 | PC.NURSE ---
pt is up in chair.
[2023-04-14 15:52] VITALS: BP 147/75; PULSE 74; RESP 22; TEMP 36.6; O2SAT 97
--- NOTE | 2023-04-14 16:43 | PC.NURSE ---
pt ambulated the length of hallway multiple times with tech and family. pt has been up to chair all day as well.
--- NOTE | 2023-04-14 17:12 | PC.NURSE ---
No acute changes noted. Patient able to sit in chair and ambulated in [place] twice during shift. VS stable and patient remained on room air. Dressing change performed, no drainage or odor noted.
[2023-04-14 20:00] VITALS: BP 138/80; PULSE 72; RESP 18; TEMP 36.3; O2SAT 96
[2023-04-15] VITALS: BP 146/66; PULSE 70; RESP 18; TEMP 36.3; O2SAT 96
--- NOTE | 2023-04-15 05:07 | PC.NURSE ---
PATIENT HAS HAD A QUIET NIGHT. SISTER AT BEDSIDE. NO INDICATIONS OF PAIN OR DISCOMFORT. DRSG TO ABDOMEN C/D/I. VSs STABLE/AFEBRILE.
--- NOTE | 2023-04-15 06:25 | EXP.SURG.PN ---
Subjective Narrative: Resting. No issues per nursing. Tolerating full liquid without issue. Exam Data for Last 24 hours Vital signs and Labs for Last 24 Hours: Temp Pulse Resp BP Pulse Ox O2 Del Method 97.4 F L 70 18 146/66 H 96 Room Air 04/15/23 00:00 04/15/23 00:00 04/15/23 00:00 04/15/23 00:00 04/15/23 00:00 04/15/23 04:49 Laboratory Results - last 24 hr 04/14/23 06:26: Sodium 147 H, Potassium 4.1 D, Chloride 115 H, Carbon Dioxide 30, Anion Gap 6.1, BUN 12 D, Creatinine 0.80, Estimated Creat Clear 41, Estimated GFR 71, Est GFR ( Amer) 86 D, Glucose 91 D, Calcium 8.3 L, Phosphorus 1.3 L D, Magnesium 2.0 D I & O for Last 24 hours: Intake & Output 04/12/23 04/13/23 04/14/23 04/15/23 11:59 11:59 11:59 11:59 Intake Total 750 / 750 1985 1313 / 1313 1080 / 1080 Output Total 350 / 350 0 / 0 0 / 0 500 / 500 Balance 400 / 400 1985 1313 / 1313 580 / 580 Weight 104 lb 11.2 oz 102 lb 3.2 oz 107 lb 14.4 oz Progress Note: A&P Assessment and plan (1) Small bowel obstruction: Status: Deleted Assessment and plan: Advance to pureed diet. Possible discharge later today with outpatient follow up and possible outpatient speech eval. (2) Cecal volvulus: Status: Acute (3) Status post colon resection: Status: Acute (4) Diverticulosis: Status: Acute (5) Open wound anterior abdominal wall: Problem details: Status post hematoma evacuation Status: Acute (6) Developmental delay, borderline: Status: Acute (7) Autism: Status: Acute (8) HTN (hypertension): Status: Acute
[2023-04-15 07:53] VITALS: BP 144/98; PULSE 101; RESP 18; TEMP 36.7; O2SAT 96
[2023-04-15 08:00] LABS: Chloride 108 mmol/L (98-107)
[2023-04-15 08:01] LABS: Potassium 3.4 mmoL/L (3.5-5.1); Sodium 142 mmol/L (136-145)
[2023-04-15 08:03] LABS: Anion Gap 9.4 mEq/L (5-15); Blood Urea Nitrogen 6 mg/dl (7-17); Carbon Dioxide 28 mmol/L (22.0-30.0); Creatinine Clearance Estimated 41 mL/min (50-200); Estimated Glomerular Filt Rate 99 ml/min (>60); GFR (African American) 120 ML/MIN (>60)
[2023-04-15 08:04] LABS: Glucose 90 mg/dl (74-100); Magnesium 1.6 mg/dl (1.6-2.3); Phosphorous 2.1 mg/dl (2.5-4.5)
--- NOTE | 2023-04-15 09:34 | EXP.SURG.PN ---
Subjective Narrative: Nursing had reported no issues overnight but patient's sister does describe horrible night which seems to be mainly some restlessness and difficulty sleeping. Patient did tolerate pur?ed diet this morning. Bowel movements present but not normal according to the sister. Exam Data for Last 24 hours Vital signs and Labs for Last 24 Hours: Temp Pulse Resp BP Pulse Ox O2 Del Method 98.0 F 101 H 18 144/98 H 96 Room Air 04/15/23 07:53 04/15/23 07:53 04/15/23 07:53 04/15/23 07:53 04/15/23 07:53 04/15/23 07:53 Laboratory Results - last 24 hr 04/15/23 06:45: Sodium 142, Potassium 3.4 L, Chloride 108 H, Carbon Dioxide 28, Anion Gap 9.4, BUN 6 L D, Creatinine 0.60 D, Estimated Creat Clear 41, Estimated GFR 99, Est GFR ( Amer) 120 D, Glucose 90, Calcium 8.0 L, Phosphorus 2.1 L D, Magnesium 1.6 D I & O for Last 24 hours: Intake & Output 04/12/23 04/13/23 04/14/23 04/15/23 11:59 11:59 11:59 11:59 Intake Total 750 / 750 1985 1313 / 1313 1680 / 1680 Output Total 350 / 350 0 / 0 0 / 0 500 / 500 Balance 400 / 400 1985 1313 / 1313 1180 / 1180 Weight 104 lb 11.2 oz 102 lb 3.2 oz 107 lb 14.4 oz Progress Note: A&P Assessment and plan (1) Small bowel obstruction: Status: Deleted Assessment and plan: Patient nearly ready for discharge. Her sister does have some reservations and states that she would like for her to be on a pur?ed diet tomorrow and if tolerated have a trial of regular diet tomorrow prior to discharge. (2) Cecal volvulus: Status: Acute (3) Status post colon resection: Status: Acute (4) Diverticulosis: Status: Acute (5) Open wound anterior abdominal wall: Problem details: Status post hematoma evacuation Status: Acute (6) Developmental delay, borderline: Status: Acute (7) Autism: Status: Acute (8) HTN (hypertension): Status: Acute
[2023-04-15 11:06] VITALS: BP 125/69; PULSE 81; RESP 18; TEMP 36.7; O2SAT 96
--- NOTE | 2023-04-15 12:30 | DIET.NUTRFU ---
Spoke to sister in great depth in regards to diet consistency. Patients sister was planning on pureed some of her foods at home. But also wants to try the regular diet prior to discharge. Her sister keep diligent notes and tries to provide a large variety of foods to meet all vitamins and minerals. The patient is very impulsive when she eats sometimes taking large portions and not chewing well prior to swallowing. The sister controls portions or both liquids and solids. Suggested to start rotating liquids and solids to help wash her foods down. Sister plans on blending some foods and just very small bites of others. Will provide handout on pureed diet and recipe suggestions. They will follow up with sx,to review POC
[2023-04-15 15:52] VITALS: BP 116/86; PULSE 96; RESP 18; TEMP 36.8; O2SAT 98
--- NOTE | 2023-04-15 16:58 | EXP.PN ---
Subjective *Date: 04/15/23 *Time: 09:00 Interval history: No acute events overnight. She is having loose bowel movements Exam Data for Last 24 hours Vital signs and Labs for Last 24 Hours: Temp Pulse Resp BP Pulse Ox O2 Del Method 98.2 F 96 H 18 116/86 98 Room Air 04/15/23 15:52 04/15/23 15:52 04/15/23 15:52 04/15/23 15:52 04/15/23 15:52 04/15/23 15:00 Laboratory Results - last 24 hr 04/15/23 06:45: Sodium 142, Potassium 3.4 L, Chloride 108 H, Carbon Dioxide 28, Anion Gap 9.4, BUN 6 L D, Creatinine 0.60 D, Estimated Creat Clear 41, Estimated GFR 99, Est GFR ( Amer) 120 D, Glucose 90, Calcium 8.0 L, Phosphorus 2.1 L D, Magnesium 1.6 D I & O for Last 24 hours: Intake & Output 04/12/23 04/13/23 04/14/23 04/15/23 23:59 23:59 23:59 23:59 Intake Total 1590 / 1590 2339 / 2459 1200 / 1200 960 / 960 Output Total 100 / 100 0 / 0 100 / 100 500 / 500 Balance 1490 / 1490 2339 / 2459 1100 / 1100 460 / 460 Weight 47.491 kg 46.357 kg 48.943 kg Constitutional Constitutional: no acute distress *Routine HEENT Exam Head: Present normocephalic Eye: Present EOMI and PERRL ENT: Present mucous membranes moist Comments: NG tube *Routine Neck Exam Neck: Present supple; Absent lymphadenopathy *Routine Respiratory Exam Respiratory: Present CTA bilaterally *Routine Cardiovascular Exam Cardiovascular: Present RRR *Routine Abdominal Exam Abdominal: Present soft and distended; Absent tenderness *Routine Extremities Exam Extremities: Absent cyanosis, clubbing or edema *Routine Skin Exam Skin: Present warm; Absent rash *Routine Neurological Exam Neurological: Present alert and moving all extremities Assessment and Plan *Assessment and plan (1) Small bowel obstruction: Status: Deleted Category: Medical Code(s): K56.609 - Unspecified intestinal obstruction, unspecified as to partial versus complete obstruction (2) Cecal volvulus: Status: Acute Category: Surgical Code(s): K56.2 - Volvulus (3) Status post colon resection: Status: Acute Category: Surgical Code(s): Z90.49 - Acquired absence of other specified parts of digestive tract (4) Diverticulosis: Status: Acute Category: Medical Code(s): K57.90 - Diverticulosis of intestine, part unspecified, without perforation or abscess without bleeding (5) Open wound anterior abdominal wall: Problem Comment: Status post hematoma evacuation Status: Acute Qualifiers: Encounter type: subsequent encounter Qualified Code(s): S31.109D - Unspecified open wound of abdominal wall, unspecified quadrant without penetration into peritoneal cavity, subsequent encounter Category: Medical Code(s): S31.109A - Unspecified open wound of abdominal wall, unspecified quadrant without penetration into peritoneal cavity, initial encounter (6) Developmental delay, borderline: Status: Acute Category: Medical Code(s): R62.50 - Unspecified lack of expected normal physiological development in childhood (7) Autism: Status: Acute Category: Medical Code(s): F84.0 - Autistic disorder (8) HTN (hypertension): Status: Acute Qualifiers: Hypertension type: primary hypertension Qualified Code(s): I10 - Essential (primary) hypertension Category: Medical Code(s): I10 - Essential (primary) hypertension Plan Ms. 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 #small bowel obstruction #hypernatremia, resolved #hypophosphatemia #hypomagnesemia #hypokalemia #hypertension #intellectual disability #insomnia The patient had small bowel follow on 04/12 and has been having BMs NGT dis
[2023-04-15 20:00] VITALS: BP 132/80; PULSE 81; RESP 16; TEMP 36.2; O2SAT 98
--- NOTE | 2023-04-15 21:57 | PC.NURSE ---
Pt familly member requested that 0000 vitals not be done in order for patient to rest nurse Chantel aware and agreed with request
[2023-04-16 04:00] VITALS: BP 130/90; PULSE 76; RESP 16; TEMP 36.7; O2SAT 96; BMI 25.9
--- NOTE | 2023-04-16 05:16 | PC.NURSE ---
Patient has slept all night. Patient has been up to bathroom. Dressing was changed on midline before bed. No issues were stated by patient
[2023-04-16 07:26] LABS: Chloride 108 mmol/L (98-107); Potassium 3.3 mmoL/L (3.5-5.1); Sodium 140 mmol/L (136-145)
[2023-04-16 07:29] LABS: Anion Gap 5.3 mEq/L (5-15); Blood Urea Nitrogen 10 mg/dl (7-17); Calcium 8.1 mg/dl (8.4-10.2); Carbon Dioxide 30 mmol/L (22.0-30.0); Creatinine Clearance Estimated 41 mL/min (50-200); Estimated Glomerular Filt Rate 83 ml/min (>60); GFR (African American) 100 ML/MIN (>60); Glucose 102 mg/dl (74-100); Phosphorous 2.6 mg/dl (2.5-4.5)
[2023-04-16 07:30] LABS: Magnesium 1.7 mg/dl (1.6-2.3)
[2023-04-16 07:35] VITALS: BP 121/73; PULSE 80; RESP 18; TEMP 36.4; O2SAT 98
--- NOTE | 2023-04-16 08:25 | EXP.SURG.PN ---
Subjective Narrative: Per the patient's sister, she had a better night last night . Exam Data for Last 24 hours Vital signs and Labs for Last 24 Hours: Temp Pulse Resp BP Pulse Ox O2 Del Method 97.6 F 80 18 121/73 98 Room Air 04/16/23 07:35 04/16/23 07:35 04/16/23 07:35 04/16/23 07:35 04/16/23 07:35 04/16/23 07:35 Laboratory Results - last 24 hr 04/15/23 06:45: Sodium 142, Potassium 3.4 L, Chloride 108 H, Carbon Dioxide 28, Anion Gap 9.4, BUN 6 L D, Creatinine 0.60 D, Estimated Creat Clear 41, Estimated GFR 99, Est GFR ( Amer) 120 D, Glucose 90, Calcium 8.0 L, Phosphorus 2.1 L D, Magnesium 1.6 D 04/16/23 06:53: Sodium 140, Potassium 3.3 L, Chloride 108 H, Carbon Dioxide 30, Anion Gap 5.3, BUN 10 D, Creatinine 0.70, Estimated Creat Clear 41, Estimated GFR 83, Est GFR ( Amer) 100, Glucose 102 H, Calcium 8.1 L, Phosphorus 2.6, Magnesium 1.7 I & O for Last 24 hours: Intake & Output 04/13/23 04/14/23 04/15/23 04/16/23 11:59 11:59 11:59 11:59 Intake Total 1985 1313 / 1313 1680 / 1680 650 / 650 Output Total 0 / 0 0 / 0 500 / 500 1050 / 1050 Balance 1985 1313 / 1313 1180 / 1180 -400 / -400 Weight 102 lb 3.2 oz 107 lb 14.4 oz 107 lb 9.299 oz Constitutional Constitutional: no acute distress *Routine Respiratory Exam Respiratory: Absent respiratory distress *Routine Cardiovascular Exam Cardiovascular: Absent tachycardia *Routine Abdominal Exam Abdominal: Present soft Progress Note: A&P Assessment and plan (1) Ileus, postoperative: Status: Acute Assessment and plan: Seemingly resolved. Discharge when deemed appropriate per primary service Follow-up with Dr. Carvalho in 1-2 weeks (2) Status post colon resection: Status: Acute Assessment and plan: Continuing to improve status post colon resection. (3) Open wound anterior abdominal wall: Problem details: Status post hematoma evacuation Status: Acute Assessment and plan: Wound continuing to contract. Keep area clean and dry
--- NOTE | 2023-04-16 09:46 | EXP.PN ---
Subjective *Date: 04/16/23 *Time: 09:46 Interval history: No acute events overnight. Exam Data for Last 24 hours Vital signs and Labs for Last 24 Hours: Temp Pulse Resp BP Pulse Ox O2 Del Method 97.6 F 80 18 121/73 98 Room Air 04/16/23 07:35 04/16/23 07:35 04/16/23 07:35 04/16/23 07:35 04/16/23 07:35 04/16/23 07:35 Laboratory Results - last 24 hr 04/16/23 06:53: Sodium 140, Potassium 3.3 L, Chloride 108 H, Carbon Dioxide 30, Anion Gap 5.3, BUN 10 D, Creatinine 0.70, Estimated Creat Clear 41, Estimated GFR 83, Est GFR ( Amer) 100, Glucose 102 H, Calcium 8.1 L, Phosphorus 2.6, Magnesium 1.7 I & O for Last 24 hours: Intake & Output 04/13/23 04/14/23 04/15/23 04/16/23 23:59 23:59 23:59 23:59 Intake Total 2339 / 2459 1200 / 1200 1200 / 1250 290 / 290 Output Total 0 / 0 100 / 100 700 / 700 750 / 750 Balance 2339 / 2459 1100 / 1100 500 / 550 -460 / -460 Weight 46.357 kg 48.943 kg 48.798 kg Constitutional Constitutional: no acute distress *Routine HEENT Exam Head: Present normocephalic Eye: Present EOMI and PERRL ENT: Present mucous membranes moist Comments: NG tube *Routine Neck Exam Neck: Present supple; Absent lymphadenopathy *Routine Respiratory Exam Respiratory: Present CTA bilaterally *Routine Cardiovascular Exam Cardiovascular: Present RRR *Routine Abdominal Exam Abdominal: Present soft and distended; Absent tenderness *Routine Extremities Exam Extremities: Absent cyanosis, clubbing or edema *Routine Skin Exam Skin: Present warm; Absent rash *Routine Neurological Exam Neurological: Present alert and moving all extremities Assessment and Plan *Assessment and plan (1) Small bowel obstruction: Status: Deleted Category: Medical Code(s): K56.609 - Unspecified intestinal obstruction, unspecified as to partial versus complete obstruction (2) Cecal volvulus: Status: Acute Category: Surgical Code(s): K56.2 - Volvulus (3) Status post colon resection: Status: Acute Category: Surgical Code(s): Z90.49 - Acquired absence of other specified parts of digestive tract (4) Diverticulosis: Status: Acute Category: Medical Code(s): K57.90 - Diverticulosis of intestine, part unspecified, without perforation or abscess without bleeding (5) Open wound anterior abdominal wall: Problem Comment: Status post hematoma evacuation Status: Acute Qualifiers: Encounter type: subsequent encounter Qualified Code(s): S31.109D - Unspecified open wound of abdominal wall, unspecified quadrant without penetration into peritoneal cavity, subsequent encounter Category: Medical Code(s): S31.109A - Unspecified open wound of abdominal wall, unspecified quadrant without penetration into peritoneal cavity, initial encounter (6) Developmental delay, borderline: Status: Acute Category: Medical Code(s): R62.50 - Unspecified lack of expected normal physiological development in childhood (7) Autism: Status: Acute Category: Medical Code(s): F84.0 - Autistic disorder (8) HTN (hypertension): Status: Acute Qualifiers: Hypertension type: primary hypertension Qualified Code(s): I10 - Essential (primary) hypertension Category: Medical Code(s): I10 - Essential (primary) hypertension Plan Ms. 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 #small bowel obstruction #hypernatremia, resolved #hypophosphatemia #hypomagnesemia #hypokalemia #hypertension #intellectual disability #insomnia NGT discontinued on 04/13 I stopped zosyn on 04/12. continue protonix. replace electrolytes as needed today diet was advanc
[2023-04-16 11:45] VITALS: BP 113/61; PULSE 51; RESP 20; TEMP 36.5; O2SAT 98
--- NOTE | 2023-04-16 12:03 | PC.NURSE ---
courtesy tech note: pt is up to chair. ambulated 5 times to and from door with minimum assist. family is at BS. no requests voiced at this time.
[2023-04-16 16:00] VITALS: BP 113/61; PULSE 83; RESP 18; TEMP 36.6; O2SAT 98
--- NOTE | 2023-04-16 19:16 | PC.NURSE ---
Patient has no complaints of pain and had a bowel movement today.
[2023-04-16 20:00] VITALS: BP 142/69; PULSE 78; RESP 16; TEMP 36.2; O2SAT 100
--- NOTE | 2023-04-16 20:42 | PC.NURSE ---
Pt family member requested that 0000 vitals not be done in order for patient to rest. Nurse notified and aware of refusal.
--- NOTE | 2023-04-17 03:43 | PC.NURSE ---
NO ACUTE CHANGES THIS SHIFT. PT HAS RESTED WELL. VSS. PT HAS HAD ONE BM THIS SHIFT. NO SIGNS OF PAIN NOTED.
[2023-04-17 04:00] VITALS: BP 125/83; PULSE 85; RESP 16; TEMP 36; O2SAT 98; BMI 24.6
[2023-04-17 08:00] VITALS: BP 171/86; PULSE 77; RESP 18; TEMP 36.4; O2SAT 98
[2023-04-17 08:06] LABS: Anion Gap 7.6 mEq/L (5-15); Blood Urea Nitrogen 13 mg/dl (7-17); Calcium 7.9 mg/dl (8.4-10.2); Carbon Dioxide 28 mmol/L (22.0-30.0); Chloride 108 mmol/L (98-107); Creatinine Clearance Estimated 39 mL/min (50-200); Estimated Glomerular Filt Rate 83 ml/min (>60); GFR (African American) 100 ML/MIN (>60); Glucose 93 mg/dl (74-100); Magnesium 1.8 mg/dl (1.6-2.3); Phosphorous 2.5 mg/dl (2.5-4.5); Potassium 3.6 mmoL/L (3.5-5.1); Sodium 140 mmol/L (136-145)
--- NOTE | 2023-04-17 08:15 | EXP.DC.SUM ---
General Admission date:: 04/09/23 Discharge date: 04/17/23 HPI HPI HPI: This patient is a 68-year-old female with PMHx of nonverbal autism, developmental delay, HTN. 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 Surgical consultation was obtained in the ER at that time and she was taken emergently for laparotomy at which time she underwent right hemicolectomy. Pathology revealed benign small bowel and colonic mucosa with changes consistent with volvulus with vascular congestion and superficial mucosal necrosis without perforation. Patient was discharged home on 03/30/2023, and family had reported that she had been doing better since going home. She been having good bowel movements up until 4 days ago, when she started passing only small amounts of stool or liquid stool. She had seen Dr. Silverio in the office on 04/06/23. she also seems to have decreased appetite. On 04/08/2023 she had developed vomiting. This was occasionally projectile. Due to change in bowel habits and vomiting patient was brought to ER for evaluation. Work-up in the emergency department included CT scan which revealed findings suspicious for mid small bowel obstruction with additional findings raising concern for complicated small bowel obstruction for which continued close follow-up recommended. Mild amount of pelvic ascites. Interval repair of cecal volvulus with 5 x 3 cm inflammatory mass situated just posterior-inferior to the site of surgical repair within the right lower quadrant. Hospital Course Hospital Course Hospital Course: Ms. 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 #small bowel obstruction #hypernatremia, resolved #hypophosphatemia, resolved #hypomagnesemia, resolved #hypokalemia, resolved #hypertension #intellectual disability #insomnia General Surgery was consulted. NGT discontinued on 04/13. The patient's diet was gradually advanced. By day of discharge the patient was eating a regular diet and having regular bowel movements. I stopped zosyn on 04/12 and gave potassium, phosphorus and magnesium supplements. She is to continue her clobetasol priopionate cream 0.05% for her chronic rash which was prescribed by her [employer] Officer. The fexofenadine which was also prescribed for her rash was discontinued. She did not receive any fexofenadine throughout the hospital course. She is to continue her miralax 17g daily and prune juice both of which she was taking prior to this admission. She will discharge home and is to continue home health services with pt/ot and wound care. She lives with her sister who is her primary caregiver. She will need to follow up with General Surgery in 1-2 weeks and with her PCP in 1 week. Exam Data for Last 24 hours Vital signs and Labs for Last 24 Hours: Temp Pulse Resp BP Pulse Ox O2 Del Method 96.8 F L 85 16 125/83 98 Room Air 04/17/23 04:00 04/17/23 04:00 04/17/23 04:00 04/17/23 04:00 04/17/23 04:00 04/17/23 06:56 Laboratory Results - last 24 hr 04/17/23 06:36: Sodium 140, Potassium 3.6, Chloride 108 H, Carbon Dioxide 28, Anion Gap 7.6, BUN 13 D, Creatinine 0.70, Estimated Creat Clear 39, Estimated GFR 83, Est GFR ( Amer) 100, Glucose 93, Calcium 7.9 L, Phosphorus 2.5, Magnesium 1.8 I & O for Last 24 hours: Intake & Output 04/14/23 04/15/23 04/16/23 04/17/23 23:59 23:59 23:59 23:59 Intake Total 1200 / 1200 1200 / 1250 2030 / 2210 180 / 180 Output Total 100 / 100 700 / 700 1550 / 1850 700 / 700 Balance 1100 / 1100 500 / 550 480 / 360 -520 / -520 Weight 48.943 kg 48.798 kg 46.312 kg Constitutional Constitutional: no acute distress *Routine HEENT Exam He
--- NOTE | 2023-04-17 09:48 | EXP.SURG.PN ---
Subjective Patient reports: no new complaints Exam Data for Last 24 hours Vital signs and Labs for Last 24 Hours: Temp Pulse Resp BP Pulse Ox O2 Del Method 97.6 F 77 18 171/86 H 98 Room Air 04/17/23 08:00 04/17/23 08:00 04/17/23 08:00 04/17/23 08:00 04/17/23 08:00 04/17/23 08:00 Laboratory Results - last 24 hr 04/17/23 06:36: Sodium 140, Potassium 3.6, Chloride 108 H, Carbon Dioxide 28, Anion Gap 7.6, BUN 13 D, Creatinine 0.70, Estimated Creat Clear 39, Estimated GFR 83, Est GFR ( Amer) 100, Glucose 93, Calcium 7.9 L, Phosphorus 2.5, Magnesium 1.8 I & O for Last 24 hours: Intake & Output 04/14/23 04/15/23 04/16/23 04/17/23 11:59 11:59 11:59 11:59 Intake Total 1313 / 1313 1680 / 1680 1610 / 1610 1470 / 1470 Output Total 0 / 0 500 / 500 1150 / 1150 1400 / 1400 Balance 1313 / 1313 1180 / 1180 460 / 460 70 / 70 Weight 107 lb 14.4 oz 107 lb 9.299 oz 102 lb 1.6 oz Constitutional Constitutional: no acute distress *Routine Respiratory Exam Respiratory: Absent respiratory distress *Routine Cardiovascular Exam Cardiovascular: Absent tachycardia Progress Note: A&P Assessment and plan (1) Ileus, postoperative: Status: Resolved Assessment and plan: Resolved. Discharge home today as per primary service Follow-up with Dr. Carvalho in 1-2 weeks (2) Status post colon resection: Status: Acute Assessment and plan: Continuing to improve status post colon resection. (3) Open wound anterior abdominal wall: Problem details: Status post hematoma evacuation Status: Acute Assessment and plan: Wound continuing to contract. Keep area clean and dry
[2023-04-17 12:00] VITALS: BP 147/81; PULSE 77; RESP 18; TEMP 36.4; O2SAT 97
--- NOTE | 2023-04-19 14:38 | CARE MANAGER ---
Called and spoke with patient's daughter in regards to recent discharge. Per daughter, patient is doing well, and plans to scheduled f/u appt with with PCP. She has already scheduled the appt with Dr. Carvalho for next Tuesday. HH nurse was there today. No complaints or concerns voiced at time of call.
== END 2023-04-17 14:54 | disposition home health service (06) | DRG 389 ==
LOC: ER 19:29 → 2ND 21:06
PROVIDERS: Internal Medicine; Nurse Practitioner Family; Admitting Provider Internal Medicine Adolescent Medicine; Emergency Provider Emergency Medicine; PCP Internal Medicine; Visit Provider Internal Medicine Adolescent Medicine
DX: K56.609 Unspecified intestinal obstruction, unspecified as to partial versus complete obstruction (principal); E87.0 Hyperosmolality and hypernatremia; F84.0 Autistic disorder; Z90.49 Acquired absence of other specified parts of digestive tract; K57.90 Diverticulosis of intestine, part unspecified, without perforation or abscess without bleeding; S31.109D Unspecified open wound of abdominal wall, unspecified quadrant without penetration into peritoneal cavity, subsequent encounter; R62.50 Unspecified lack of expected normal physiological development in childhood; I10 Essential (primary) hypertension; E87.6 Hypokalemia; E83.39 Other disorders of phosphorus metabolism; G47.00 Insomnia, unspecified
CPT/HCPCS: 36415; 74018; 74177; 74250; 80048; 80053; 81001; 83605; 83690; 83735; 84100; 84295; 85007; 85025; 99285; J2405; J2543; Q9967

== ENCOUNTER → 2023-04-26 11:53 | Outpatient (CLI) | payer MEDICARE, OTHER, SELFPAY ==
--- NOTE | 2023-04-26 11:53 | CA_ITS ---
FINAL REPORT TECHNIQUE: Color Doppler, duplex Doppler and compression sonography of the right lower extremity venous system was performed. CLINICAL HISTORY: RLE EDEMA,S/P COLON RESECTION,PT IS NON-VERBAL FINDINGS: There is no evidence of deep venous thrombosis from the level of the groin to the calf. The veins are patent and compressible. IMPRESSION: No evidence of deep venous thrombosis right lower extremity. Reviewed, Interpreted and Dictated by Eder Padgett III, MD Transcribed by Misti Jordan Authenticated and [facility]
--- NOTE | 2023-05-09 13:23 | DIET.NUTRFU ---
Spoke to sister via phone today, saw them 1 week ago about wt loss she was 99#. Kelly continue to mash or chop food, feels her meal intake has improved, drink 1 boost/day. Was drinking 2/day and when started to gain, tapered down to 1/day. Feels her BM have improved in consistency and length. Her wt is up to 106#, goal wt is 110#. Kelly is thinking about adding in soda 1/week small amount. She seems pleased with progress.
== END ==
PROVIDERS: PCP Internal Medicine; Visit Provider Surgery
DX: M79.89 Other specified soft tissue disorders (principal); S31.109A Unspecified open wound of abdominal wall, unspecified quadrant without penetration into peritoneal cavity, initial encounter
CPT/HCPCS: 93971

== ENCOUNTER 2024-04-03 11:29 | Outpatient (CLI) | payer MEDICARE, OTHER, SELFPAY ==
[2024-04-03 12:06] LABS: Blood Urea Nitrogen 19 mg/dl (7-17); Estimated Glomerular Filt Rate 62 ml/min (>60); GFR (African American) 75 ML/MIN (>60)
== END 2024-04-03 23:59 | disposition home or self-care (01) ==
LOC: LAB 11:30
PROVIDERS: PCP Radiology Neuroradiology; Visit Provider Surgery
DX: K57.90 Diverticulosis of intestine, part unspecified, without perforation or abscess without bleeding (principal)
CPT/HCPCS: 36415; 82565; 84520

== ENCOUNTER 2024-04-18 09:26 | Outpatient (CLI) | payer MEDICARE, OTHER, SELFPAY ==
--- NOTE | 2024-04-18 09:26 | CT_ITS ---
FINAL REPORT TECHNIQUE: After the administration of oral and intravenous contrast, axial images were obtained through the abdomen and pelvis by computed tomography. The study was performed with techniques to keep radiation dose as low as reasonably achievable, (ALARA). Individual dose reduction techniques using automated exposure control or adjustment of mA and/or kV according to the patient's size were employed. CLINICAL HISTORY: abdominal pain COMPARISON: 04/09/2023 FINDINGS: Abdomen: There is mild atelectasis at the lung bases. The liver is normal in size and attenuation. The spleen is unremarkable. The adrenals are normal. The pancreas is unremarkable. The kidneys enhance appropriately. The aorta is normal in caliber. There is no free fluid or adenopathy. Pelvis: There are postoperative changes in the ascending colon. There is a small umbilical hernia containing fat. The appendix has been removed. There is a large amount of stool in the distal sigmoid colon and rectum worrisome for constipation/fecal impaction. The urinary bladder is unremarkable. There is no free fluid or adenopathy. IMPRESSION: Findings worrisome for constipation/fecal impaction. Reviewed, Interpreted and Dictated by Eder Padgett III, MD Transcribed by Misti Jordan Authenticated and [facility]
[2024-04-18] MEDS: SODIUM CHLORIDE 0.9% 10ML SYR (RAD ONLY) 10 ML IV (09:51)
[2024-04-18] MEDS: BARIUM SULFATE(READI-CAT2);450ML BOTTLE 450 ML PO (09:51)
[2024-04-18] MEDS: IOPAMIDOL-370 (76%);100ML BOTTLE 75 ML IV (09:51)
== END 2024-04-18 23:59 | disposition home or self-care (01) ==
LOC: RAD 09:26
PROVIDERS: PCP Internal Medicine; Visit Provider Surgery
DX: K57.90 Diverticulosis of intestine, part unspecified, without perforation or abscess without bleeding (principal)
CPT/HCPCS: 74177; Q9967

== ENCOUNTER 2024-05-01 16:25 | Outpatient (CLI) | payer MEDICARE, OTHER, SELFPAY ==
--- NOTE | 2024-05-01 16:30 | XR_ITS ---
PROCEDURE INFORMATION: Exam: XR Right Shoulder Exam date and time: 05/01/2024 4:31 PM Age: 69 years old Clinical indication: Injury or trauma; Fall; Blunt trauma (contusions or hematomas); Shoulder; Right; Additional info: Fall, right shoulder pain TECHNIQUE: Imaging protocol: Radiologic exam of the right shoulder. Views: 2 or more views. COMPARISON: CR XR HUMERUS RT 05/01/2024 4:31 PM FINDINGS: Bones/joints: The glenohumeral joint shows mild joint space narrowing. There are small osteophytes at the joint margins, particularly at the inferior aspect of the humeral head and the glenoid. Subchondral sclerosis is noted at the humeral head and glenoid. The acromioclavicular (AC) joint also demonstrates mild joint space narrowing and small osteophytes. No acute fracture or dislocation is identified. The visualized portions of the ribs, scapula, and clavicle are intact and demonstrate normal bone density. Soft tissues: The soft tissues appear unremarkable. No evidence of significant soft tissue swelling or calcification. IMPRESSION: 1. Mild degenerative changes of the glenohumeral and acromioclavicular joints consistent with early osteoarthritis. 2. No evidence of acute osseous injury or significant soft tissue abnormality.
--- NOTE | 2024-05-01 16:30 | XR_ITS ---
PROCEDURE INFORMATION: Exam: XR Right Humerus Exam date and time: 05/01/2024 4:31 PM Age: 69 years old Clinical indication: Injury or trauma; Fall; Blunt trauma (contusions or hematomas); Arm, upper; Right; Additional info: Fall, right upper arm pain and bruising TECHNIQUE: Imaging protocol: Radiologic exam of the right humerus. Views: 2 or more views. COMPARISON: CR XR SHOULDER RT MIN 2V 05/01/2024 4:31 PM FINDINGS: Bones/joints: The osseous structures are intact, with no signs of acute fracture, dislocation, or malalignment. Age-related degenerative changes are observed. There is no evidence of abnormal bone density or destructive lesions. Soft tissues: The soft tissues appear within normal limits. IMPRESSION: At the time of imaging, the study shows no acute osseous abnormalities but does reveal signs of age-related degenerative changes.
== END 2024-05-01 23:59 | disposition home or self-care (01) ==
LOC: RAD 16:27
PROVIDERS: PCP Internal Medicine; Visit Provider Internal Medicine
DX: M79.601 Pain in right arm (principal); M25.511 Pain in right shoulder
CPT/HCPCS: 73030; 73060

== ENCOUNTER 2024-07-10 14:22 | Observation (INO) | payer MEDICARE, OTHER, SELFPAY ==
[2024-07-10] VITALS (8 sets, daily range): BP systolic 125–151; BP diastolic 50–107; PULSE 55–74; RESP 16–18; TEMP 36.1–36.4; O2SAT 95–100; BMI 22.9
--- NOTE | 2024-07-10 14:26 | ECG_ITS ---
APPROVED REPORT Exam: Resting ECG HR:69 bpm ECG Measurements Heart Rate 69 AXES WY 141 P 30 QRSd 126 QRS 78 QT 391 T 37 QTc 410 Conclusion SINUS RHYTHM POSSIBLE RIGHT VENTRICULAR CONDUCTION DELAY [RSR (QR) IN V1/V2] POSSIBLE LATERAL MYOCARDIAL INFARCTION , OF INDETERMINATE AGE [30 ms Q WAVE IN I/aVL/V5/V6] PROBABLE INFERIOR MYOCARDIAL INFARCTION , PROBABLY OLD [35 ms Q WAVE IN II/aVF] ABNORMAL ECG UNCONFIRMED REPORT Electronically signed by : KATHY DAMICO, 07/12/2024 06:53:25
--- NOTE | 2024-07-10 14:31 | PC.NURSE ---
Patient is nonverbal. Questions answered by family member.
--- NOTE | 2024-07-10 14:31 | PC.NURSE ---
Dr. Muniz at BS for pt eval
--- NOTE | 2024-07-10 14:54 | CT_ITS ---
PROCEDURE INFORMATION: Exam: CTA Neck With Contrast Exam date and time: 07/10/2024 3:27 PM Age: 69 years old Clinical indication: Other: Difficulty swallowing and shuffling gait TECHNIQUE: Imaging protocol: Computed tomographic angiography of the neck with contrast. Exam focused on the cervical segments of the vasculature. 3D rendering (Not supervised by radiologist): MIP and/or 3D reconstructed images were created by the technologist. Radiation optimization: All CT scans at this facility use at least one of these dose optimization techniques: automated exposure control; mA and/or kV adjustment per patient size (includes targeted exams where dose is matched to clinical indication); or iterative reconstruction. Contrast material: ISOVUE 370; Contrast volume: 80 ml; Contrast route: INTRAVENOUS (IV); COMPARISON: CT ANGIO HEAD 07/10/2024 3:27 PM FINDINGS: Right common carotid artery: No stenosis. No dissection or occlusion. Right internal carotid artery: No stenosis of the extracranial segment. No dissection or occlusion. Right external carotid artery: No occlusion or stenosis of the origin. Left common carotid artery: No stenosis. No dissection or occlusion. Left internal carotid artery: No stenosis of the extracranial segment. No dissection or occlusion. Left external carotid artery: No occlusion or stenosis of the origin. Right vertebral artery: No stenosis. No dissection or occlusion. Left vertebral artery: Occlusion of the left vertebral artery, likely chronic. There is reconstituted flow versus retrograde flow in the V4 segment of the left vertebral artery. There is an estimated greater than 90% stenosis in the V4 segment of the left vertebral artery. Soft tissues: Normal. No significant soft tissue swelling. Bones/joints: No acute fracture. IMPRESSION: Occlusion of the left vertebral artery, likely chronic. There is an estimated greater than 90% stenosis in the V4 segment of the left vertebral artery. REFERENCES: NASCET CRITERIA. The degree of stenosis in the cervical segment of the internal carotid artery is based on NASCET criteria. Normal is no stenosis. Mild is less than 50% stenosis. Moderate is 50-69% stenosis. Severe is 70% to 99% stenosis. Total occlusion is no detectable patent lumen.
--- NOTE | 2024-07-10 14:54 | CT_ITS ---
PROCEDURE INFORMATION: Exam: CT Head Without Contrast Exam date and time: 07/10/2024 3:27 PM Age: 69 years old Clinical indication: Walking, difficulty; Additional info: Difficulty swallowing and shuffling gait TECHNIQUE: Imaging protocol: Computed tomography of the head without contrast. Radiation optimization: All CT scans at this facility use at least one of these dose optimization techniques: automated exposure control; mA and/or kV adjustment per patient size (includes targeted exams where dose is matched to clinical indication); or iterative reconstruction. COMPARISON: CT ANGIO HEAD 07/10/2024 3:27 PM FINDINGS: Brain: Diffuse cerebral atrophy and white matter microangiopathic chronic ischemia in both hemispheres. No CT evidence of acute infarct, hemorrhage, mass or mass effect. Cerebral ventricles: Ventriculomegaly. Recommend correlation with signs/symptoms of normal pressure hydrocephalus. Paranasal sinuses: Trace chronic bilateral maxillary sinusitis. Mastoid air cells: Visualized mastoid air cells are well aerated. Bones: Unremarkable. No acute fracture. Soft tissues: Unremarkable. IMPRESSION: 1. No CT evidence of acute brain injury. 2. Ventriculomegaly. Correlate with signs/symptoms of normal pressure hydrocephalus.
--- NOTE | 2024-07-10 14:54 | CT_ITS ---
PROCEDURE INFORMATION: Exam: CTA Head With Contrast, Arteriography Exam date and time: 07/10/2024 3:27 PM Age: 69 years old Clinical indication: Other: Difficulty swallowing and shuffling gait TECHNIQUE: Imaging protocol: Computed tomographic angiography of the head with contrast. Exam focused on the arteries. 3D rendering (Not supervised by radiologist): MIP and/or 3D reconstructed images were created by the technologist. Radiation optimization: All CT scans at this facility use at least one of these dose optimization techniques: automated exposure control; mA and/or kV adjustment per patient size (includes targeted exams where dose is matched to clinical indication); or iterative reconstruction. Contrast material: ISOVUE 370; Contrast volume: 80 ml; Contrast route: INTRAVENOUS (IV); COMPARISON: CT HEAD/BRAIN WO CON 07/10/2024 3:27 PM FINDINGS: ANTERIOR CIRCULATION: Right internal carotid artery: Intracranial segment is patent with no significant stenosis. No aneurysm. Right middle cerebral artery: No occlusion or significant stenosis. No aneurysm. Right anterior cerebral artery: No occlusion or significant stenosis. No aneurysm. Left internal carotid artery: Intracranial segment is patent with no significant stenosis. No aneurysm. Left middle cerebral artery: No occlusion or significant stenosis. No aneurysm. Left anterior cerebral artery: No occlusion or significant stenosis. No aneurysm. POSTERIOR CIRCULATION: Right vertebral artery: No occlusion or significant stenosis. No aneurysm. Left vertebral artery: Occlusion of the left vertebral artery beginning at its origin, likely chronic. The distal V4 segment of the left vertebral artery is reconstituted by collateral flow. Basilar artery: No occlusion or significant stenosis. No aneurysm. Tiny short-segment web in the mid basilar artery. Right posterior cerebral artery: No occlusion or significant stenosis. No aneurysm. Left posterior cerebral artery: No occlusion or significant stenosis. No aneurysm. Brain: No definite mass, mass effect, or midline shift. Cerebral ventricles: Ventriculomegaly. Correlate with signs/symptoms of normal pressure hydrocephalus. Bones/joints: Unremarkable. No acute fracture. Soft tissues: Unremarkable. IMPRESSION: 1. No large vessel occlusion. 2. Occlusion of the left vertebral artery from its origin to the distal V4 segment 3. Ventriculomegaly. Correlate with signs/symptoms of normal pressure hydrocephalus.
[2024-07-10 15:02] LABS: Basophils # 0.1 K/mm3 (0-0.2); Basophils % 0.4 % (0.1-2.0); Eosinophils # 2.4 K/mm3 (0.0-0.4); Eosinophils % 21.5 % (0.1-12.0); Hematocrit 41.3 % (37.0-47.0); Hemoglobin 14.4 g/dL (12.2-16.2); Lymphocytes # 1.4 K/mm3 (0.7-4.5); Lymphocytes % 12.6 % (10-50); Mean Corpuscular HGB Conc 34.9 g/dL (31.8-35.4); Mean Corpuscular Hemoglobin 30.2 pg (27.0-31.2); Mean Corpuscular Volume 86.5 fl (81-99); Mean Platelet Volume 6.6 fl (7.4-10.4); Monocytes # 0.6 K/mm3 (0.1-1.0); Monocytes % 5.4 % (1.7-9.3); Neutrophils # 6.7 K/mm3 (1.8-7.8); Neutrophils % 60.1 % (37.0-80.0); Platelet Count 120 K/mm3 (142-424); Red Blood Count 4.78 M/mm3 (4.20-5.40); Red Cell Distribution Width 14.3 % (11.5-17.5); White Blood Count 11.2 K/mm3 (4.8-10.8)
[2024-07-10 15:11] LABS: Alanine Aminotransferase 40 U/L (12-78); Albumin Level 4.1 g/dl (3.5-5.0); Albumin/Globulin Ratio 1.7 (1.1-1.8); Alkaline Phosphatase 87 U/L (38-126); Anion Gap 13.6 mEq/L (5-15); Aspartate Amino Transferase 44 U/L (14-36); Bilirubin,Total 0.5 mg/dl (0.2-1.3); Blood Urea Nitrogen 21 mg/dl (7-17); Carbon Dioxide 31 mmol/L (22.0-30.0); Chloride 93 mmol/L (98-107); Chol/HDL Ratio 2.8 (1-3.5); Cholesterol 119 mg/dl (140-200); Creatinine Clearance Estimated 41 mL/min (50-200); Estimated Glomerular Filt Rate 71 ml/min (>60); GFR (African American) 86 ML/MIN (>60); Globulin 2.4 g/dL (1.3-3.2); Glucose 152 mg/dl (74-100); HDL Cholesterol 43 mg/dl (40-60); INR 0.98 (0.9-1.1); Potassium 4.6 mmoL/L (3.5-5.1); Sodium 133 mmol/L (136-145); Total Protein,Serum 6.5 g/dl (6.3-8.2); Triglycerides 118 mg/dl (30-150); VLDL Cholesterol 24 mg/dL (0-40)
--- NOTE | 2024-07-10 15:11 | HMH.EDGENADL ---
Discharge Plan Disposition Patient Disposition: Admitted Prescriptions Prescriptions: No Action latanoprost 0.005 % drops Eye-Both Patient Comments: INSTILL 1 DROP INTO BOTH EYES EVERY NIGHT AT BEDTIME polyethylene glycol 3350 [Miralax] 17 gram/dose powder 17 g PO BID betamethasone dipropionate 0.05 % cream 1 applic topical DAILY PRN ketoconazole 2 % shampoo 1 applic topical Q2W Qty: 120 1RF temazepam 7.5 mg capsule 22.5 mg PO HS PRN (Reason: sleep) Qty: 90 1RF PreserVision AREDS 2,148 mcg-113 mg-45 mg-17.4mg Tablet 1 tab PO BID spironolactone 25 mg tablet 100 mg PO DAILY Referrals Follow up/Referrals: Shimon Erickson MD [Primary Care Provider] - See instructions Clinical Impressions Clinical Impression: Facial droop, Feeding difficulties, Abnormal gait, Occlusion of left vertebral artery Print Language Print Language: Yakut Discharge ED Provider: Jack Muniz General Adult HPI <Jack Muniz MD - Last Filed: 07/10/24 15:16> General Chief complaint: Neuro Symptoms/Deficit Stated complaint: weakness Time Seen by Provider: 07/10/24 14:24 Mode of Arrival: Wheelchair Source of Information: Relative Limitations: Physical Limitations Description of Symptoms (Recalled from ER Triage Doc. by RN): Per family patient had a right sided drooping eye that started last night. States this morning she attempted to give the patient something to drink and the patient was unable to swallow. States that the liquid was just running out both sides of her mouth. History of Present Illness HPI narrative: Please note that above description of symptoms, in this electronic medical record under categorization of recalled from ER triage doctor by RN are reflective of an initial nursing assessment, however, is not reflective of my full history and physical exam that was personally taken and clarified. Consequentially, this preceding description of symptoms, which may include the patient's categorized chief complaint in the EMR, do not reflect my personal clinical impression, and the ultimate description of history of present illness and patient stated complaints should be deferred to this section of the note. Unless stated otherwise or congruent with this section of the note, additional signs, symptoms, or incongruence should be interpreted as inaccurate with my clinical impression. Related Data Home Medications ?Medication ?Instructions ?Recorded ?Confirmed vitamins A,C,[id number] 2,148 1 tab PO BID Supplement 03/22/23 06/05/24 mcg-113 mg-45 mg-17.4 mg tablet (PreserVision AREDS) polyethylene glycol 3350 17 17 g PO BID 03/05/24 06/05/24 gram/dose oral powder (Miralax) spironolactone 25 mg tablet 100 mg PO DAILY Fluid 03/05/24 06/05/24 latanoprost 0.005 % eye drops drp Eye-Both 04/03/24 06/05/24 betamethasone dipropionate 0.05 % 1 applic topical DAILY PRN 06/05/24 06/05/24 topical cream Previous Rx's ?Medication ?Instructions ?Recorded ketoconazole 2 % shampoo 1 applic topical Q2W #120 mL 04/19/24 temazepam 7.5 mg capsule 22.5 mg (3 x 7.5 mg) PO HS PRN 05/23/24 sleep #90 caps Allergies Allergy/AdvReac Type Severity Reaction Status Date / Time losartan Allergy Verified 06/05/24 15:26 [facility] <Jack Muniz MD - Last Filed: 07/10/24 15:16> [facility] Disclaimer: The information contained in this section may have been updated after the patient was seen, as this information can be updated by other users. Medical History Hypoglycemia Autism HTN (hypertension) Surgical History History of colon resection Cecal volvulus Social History Smoking Status: Unknown if ever smoked alcohol intake: never substance use type: denies use current occupational status: disabled Travel in the last 8 weeks: None household members: family housing: house caffeine: Yes Other Medical History Have you received the Flu Vaccine for this season: No Have you received the Pneumonia Vaccine: No <Jack Muniz MD - Last Filed: 07/10/24 15:16> ROS Obtained: Yes unobtainable due to mental condition Physical Exam <Jack Muniz MD - Last Filed: 07/10/24 15:16> General General appearance: alert Head Head exam: atraumatic and normocephalic Eye Eye exam: Present normal appearance, PERRL and EOMI ENT ENT exam: Present other (Left-sided nasolabial fold flattening, which is chronic, per family.) Neck Neck exam: Present normal inspection, full ROM and trachea midline Respiratory Respiratory exam: Present normal lung sounds bilaterally; Absent respiratory distress, wheezes, stridor, accessory muscle use or prolonged expiratory phase Cardiovascular Cardiovascular exam: Present regular rate, normal rhythm and other (Pulses equal symmetric in upper and lower extremities) Abdominal Exam Abdominal exam: Present soft and scar; Absent distention, tenderness, guarding, rebound or pulsatile mass Extremities Exam Extremities exam: Absent edema Neurological Exam Neurological exam: Present alert, CN II-XII intact and normal gait (Shuffling gait, which has been progressive and worse today, per family); Absent motor sensory deficit Skin Skin exam: Present warm and dry; Absent diaphoresis or erythema Medical Decision Making <Jack Muniz MD - Last Filed: 07/10/24 15:16> Medical Records Medical records reviewed: Yes I reviewed the patient's medical records. Screening: Per USPSTF and CDC recommendations, given the prevalence of disease in our region, it is our hospital?s policy to screen for HIV and viral Hepatitis for all patients aged 18 and over and those with ongoing risk factors. [employer] Inquiry Pt receiving controlled substance: No [employer] was queried for this patient: No Vital Signs: 07/10/24 14:22 07/10/24 14:31 07/10/24 15:01 Temperature 97.4 F L Temperature Source Oral Pulse Rate 67 67 Pulse Rate [Radial] 74 Respiratory Rate 16 Blood Pressure 142/98 H 125/54 L Blood Pressure [Right Arm] 151/68 H Blood Pressure Mean 104 77 Blood Pressure Mean [Right Arm] 95 Blood Pressure Source [Right Arm] Automatic Cuff Blood Pressure Position [Right Arm] Sitting 02 Sat by Pulse Oximetry 96 96 96 Oxygen Delivery Method Room Air Room Air Room Air 07/10/24 16:31 Temperature Temperature Source Pulse Rate 72 Pulse Rate [Radial] Respiratory Rate Blood Pressure 130/107 H Blood Pressure [Right Arm] Blood Pressure Mean 114 Blood Pressure Mean [Right Arm] Blood Pressure Source [Right Arm] Blood Pressure Position [Right Arm] 02 Sat by Pulse Oximetry 95 Oxygen Delivery Method Room Air Lab Data Lab Results 07/10/24 14:25: WBC 11.2 H, RBC 4.78, Hgb 14.4, Hct 41.3, MCV 86.5, MCH 30.2, MCHC 34.9, RDW 14.3, Plt Count 120 L, MPV 6.6 L, Neut % (Auto) 60.1, Lymph % (Auto) 12.6, [place] % (Auto) 5.4, Eos % (Auto) 21.5 H, Baso % (Auto) 0.4, Neut # (Auto) 6.7, Lymph # (Auto) 1.4, [place] # (Auto) 0.6, Eos # (Auto) 2.4 H, Baso # (Auto) 0.1, PT 11.0, INR 0.98, APTT 27.0, Sodium 133 L, Potassium 4.6, Chloride 93 L, Carbon Dioxide 31 H, Anion Gap 13.6, BUN 21 H, Creatinine 0.80, Estimated Creat Clear 41, Estimated GFR 71, Est GFR ( Amer) 86, Glucose 152 H, Calcium 9.0, Total Bilirubin 0.5, AST 44 H, ALT 40, Alkaline Phosphatase 87, Troponin I < 0.01, Total Protein 6.5, Albumin 4.1, Globulin 2.4, Albumin/Globulin Ratio 1.7, Triglycerides 118, Cholesterol 119 L, LDL Cholesterol Direct 61.63 L, VLDL Cholesterol 24, HDL Cholesterol 43, Cholesterol/HDL Ratio 2.8, Plasma/Serum Alcohol < 10, HIV 1&2 Antibody Rapid Nonreactive 07/10/24 : Urine Color Yellow, Urine Appearance Clear, Urine pH 6.0, Ur Specific [place] 1.010, Urine Protein Negative, Urine Glucose (UA) Negative, Urine Ketones Negative, Urine Blood Negative, Urine Nitrate Negative, Urine Bilirubin Negative, Urine Urobilinogen 0.2, Ur Leukocyte Esterase Negative, Urine RBC 5-10, Urine WBC Occasional, Ur Squamous Epith Cells Occasional, Urine Bacteria 1+, Hyaline Casts Occ 07/10/24 14:25 07/10/24 14:25 Orders (Tests/Meds): ED MEDICATIONS Generic Name Dose Route Start Last Admin Trade Name Freq PRN Reason Stop Dose Admin Acetaminophen 650 mg 07/10/24 16:54 Acetaminophen 325mg Tab PO 08/09/24 16:53 Q4HP PRN Fever or Mild Pain (1-3) Enoxaparin Sodium 40 mg 07/11/24 09:00 Enoxaparin 40mg/0.4ml Syringe SUBCUT 08/10/24 08:59 DAILY DILIA Ondansetron HCl 4 mg 07/10/24 16:54 Ondansetron 4mg/2ml Vial IV 08/09/24 16:53 Q8HP PRN Nausea Sodium Chloride 10 ml 07/10/24 14:54 Sodium Chloride 0.9% 10ml Flush Syringe IV 08/09/24 14:53 NEEDED PRN Maintain IV Site Discontinued Medications Generic Name Dose Route Start Last Admin Trade Name Freq PRN Reason Stop Dose Admin Iopamidol 80 ml 07/10/24 15:30 07/10/24 15:31 Iopamidol-370 (76%);100ml Bottle IV 07/10/24 15:31 80 ml ONCE ONE Administration Sodium Chloride 10 ml 07/10/24 15:30 07/10/24 15:31 Sodium Chloride 0.9% 10ml Syr (Rad Only) IV 07/10/24 15:31 10 ml ONCE ONE Administration Sodium Chloride 50 ml 07/10/24 15:30 07/10/24 15:30 0.9 % Sodium Chloride 50 Ml Vial IV 07/10/24 15:31 50 ml ONCE ONE Administration ORDERS Category Date Time Status CT angio head Stat Cat Scan 07/10/24 14:[address] angio neck Stat Cat Scan 07/10/24 14:[address] head/brain wo con Stat Cat Scan 07/10/24 14:54 Completed CA echo w/ bubbles Routine Exams 07/10/24 16:54 Ordered Activated Partial Thrombo Time Stat Lab 07/10/24 14:25 Completed Complete Blood Count Auto Diff AMLAB Lab 07/11/24 06:00 Ordered Complete Blood Count Auto Diff Stat Lab 07/10/24 14:25 Completed Comprehensive Metabolic Panel AMLAB Lab 07/11/24 06:00 Ordered Comprehensive Metabolic Panel Stat Lab 07/10/24 14:25 Completed Ethyl Alcohol Stat Lab 07/10/24 14:25 Completed HIV (1&2) Antibody Rapid Stat Lab 07/10/24 14:25 Completed Hep C Ab with Reflex to RNA Stat Lab 07/10/24 14:25 Received Lipid Panel Stat Lab 07/10/24 14:25 Completed Prothrombin Time INR Stat Lab 07/10/24 14:25 Completed Troponin I Q3H Lab 07/10/24 18:00 Ordered Troponin I Q3H Lab 07/10/24 21:00 Ordered Troponin I Stat Lab 07/10/24 14:25 Completed Urinalysis and Microscopic Stat Lab 07/10/24 Completed Medical Decision Narrative: 69-year-old female history of developmental delay, 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 Patient's family bedside providing history because patient is nonverbal. States that around 9 AM today, 07/10, patient was eating breakfast. It appeared that she was unable to swallow the way that she usually does. Water started pouring out of both sides of her mouth, she did not choke or lose consciousness. No syncope, falls, etc. Sister at bedside also states the patient has been shuffling more recently than usual in terms of gait. Patient nonverbal, but sister states she is able to communicate with her nonverbally. She has not been complaining of any pain, acting like she is hurting, any changes from baseline. History obtained with patient's sister. Also a chart review. On arrival, well-appearing and at her baseline, per sister. NIHSS 1 for facial droop. This is on the left side. Bilateral upper extremities with symmetric strength, bilateral lower extremities with symmetric strength. Pulses equal and symmetric. No lower extremity edema. Abdomen soft, nontender, nondistended. Surgical scar overlying and well-healed. Cardiopulmonary exam within normal limits, no murmurs gallops or rubs. Patient tracking around the room with eyes and does not appear to have any gross neurologic deficits. Differential includes progressive decline, swallowing dysfunction, CVA, metabolic abnormality, aspiration, among others. Hematologic workup and imaging ordered. On independent interpretation, patient's white count mildly elevated. Chemistry with mild hypokalemia, overall nonactionable. CT head independently interpreted and without acute intracranial hemorrhage. Prior to rest of labs and imaging, care handed off to oncoming physician. [employer] Expert disclaimer Much of this encounter note is an electronic planned giving officer spoken language to printed text. Electronic planned giving officer of the spoken language may permit errors. Although I have reviewed the note, some errors may still exist. <Tahmina Méndez, DO - Last Filed: 07/10/24 17:12> Vital Signs: 07/10/24 14:22 07/10/24 14:31 07/10/24 15:01 Temperature 97.4 F L Temperature Source Oral Pulse Rate 67 67 Pulse Rate [Radial] 74 Respiratory Rate 16 Blood Pressure 142/98 H 125/54 L Blood Pressure [Right Arm] 151/68 H Blood Pressure Mean 104 77 Blood Pressure Mean [Right Arm] 95 Blood Pressure Source [Right Arm] Automatic Cuff Blood Pressure Position [Right Arm] Sitting 02 Sat by Pulse Oximetry 96 96 96 Oxygen Delivery Method Room Air Room Air Room Air 07/10/24 16:31 Temperature Temperature Source Pulse Rate 72 Pulse Rate [Radial] Respiratory Rate Blood Pressure 130/107 H Blood Pressure [Right Arm] Blood Pressure Mean 114 Blood Pressure Mean [Right Arm] Blood Pressure Source [Right Arm] Blood Pressure Position [Right Arm] 02 Sat by Pulse Oximetry 95 Oxygen Delivery Method Room Air Lab Data Lab Results 07/10/24 14:25: WBC 11.2 H, RBC 4.78, Hgb 14.4, Hct 41.3, MCV 86.5, MCH 30.2, MCHC 34.9, RDW 14.3, Plt Count 120 L, MPV 6.6 L, Neut % (Auto) 60.1, Lymph % (Auto) 12.6, [place] % (Auto) 5.4, Eos % (Auto) 21.5 H, Baso % (Auto) 0.4, Neut # (Auto) 6.7, Lymph # (Auto) 1.4, [place] # (Auto) 0.6, Eos # (Auto) 2.4 H, Baso # (Auto) 0.1, PT 11.0, INR 0.98, APTT 27.0, Sodium 133 L, Potassium 4.6, Chloride 93 L, Carbon Dioxide 31 H, Anion Gap 13.6, BUN 21 H, Creatinine 0.80, Estimated Creat Clear 41, Estimated GFR 71, Est GFR ( Amer) 86, Glucose 152 H, Calcium 9.0, Total Bilirubin 0.5, AST 44 H, ALT 40, Alkaline Phosphatase 87, Troponin I < 0.01, Total Protein 6.5, Albumin 4.1, Globulin 2.4, Albumin/Globulin Ratio 1.7, Triglycerides 118, Cholesterol 119 L, LDL Cholesterol Direct 61.63 L, VLDL Cholesterol 24, HDL Cholesterol 43, Cholesterol/HDL Ratio 2.8, Plasma/Serum Alcohol < 10, HIV 1&2 Antibody Rapid Nonreactive 07/10/24 : Urine Color Yellow, Urine Appearance Clear, Urine pH 6.0, Ur Specific [place] 1.010, Urine Protein Negative, Urine Glucose (UA) Negative, Urine Ketones Negative, Urine Blood Negative, Urine Nitrate Negative, Urine Bilirubin Negative, Urine Urobilinogen 0.2, Ur Leukocyte Esterase Negative, Urine RBC 5-10, Urine WBC Occasional, Ur Squamous Epith Cells Occasional, Urine Bacteria 1+, Hyaline Casts Occ Orders (Tests/Meds): ED MEDICATIONS Generic Name Dose Route Start Last Admin Trade Name Freq PRN Reason Stop Dose Admin Acetaminophen 650 mg 07/10/24 16:54 Acetaminophen 325mg Tab PO 08/09/24 16:53 Q4HP PRN Fever or Mild Pain (1-3) Enoxaparin Sodium 40 mg 07/11/24 09:00 Enoxaparin 40mg/0.4ml Syringe SUBCUT 08/10/24 08:59 DAILY DILIA Ondansetron HCl 4 mg 07/10/24 16:54 Ondansetron 4mg/2ml Vial IV 08/09/24 16:53 Q8HP PRN Nausea Sodium Chloride 10 ml 07/10/24 14:54 Sodium Chloride 0.9% 10ml Flush Syringe IV 08/09/24 14:53 NEEDED PRN Maintain IV Site Discontinued Medications Generic Name Dose Route Start Last Admin Trade Name Freq PRN Reason Stop Dose Admin Iopamidol 80 ml 07/10/24 15:30 07/10/24 15:31 Iopamidol-370 (76%);100ml Bottle IV 07/10/24 15:31 80 ml ONCE ONE Administration Sodium Chloride 10 ml 07/10/24 15:30 07/10/24 15:31 Sodium Chloride 0.9% 10ml Syr (Rad Only) IV 07/10/24 15:31 10 ml ONCE ONE Administration Sodium Chloride 50 ml 07/10/24 15:30 07/10/24 15:30 0.9 % Sodium Chloride 50 Ml Vial IV 07/10/24 15:31 50 ml ONCE ONE Administration ORDERS Category Date Time Status CT angio head Stat Cat Scan 07/10/24 14:[address] angio neck Stat Cat Scan 07/10/24 14:[address] head/brain wo con Stat Cat Scan 07/10/24 14:54 Completed CA echo w/ bubbles Routine Exams 07/10/24 16:54 Ordered Activated Partial Thrombo Time Stat Lab 07/10/24 14:25 Completed Complete Blood Count Auto Diff AMLAB Lab 07/11/24 06:00 Ordered Complete Blood Count Auto Diff Stat Lab 07/10/24 14:25 Completed Comprehensive Metabolic Panel AMLAB Lab 07/11/24 06:00 Ordered Comprehensive Metabolic Panel Stat Lab 07/10/24 14:25 Completed Ethyl Alcohol Stat Lab 07/10/24 14:25 Completed HIV (1&2) Antibody Rapid Stat Lab 07/10/24 14:25 Completed Hep C Ab with Reflex to RNA Stat Lab 07/10/24 14:25 Received Lipid Panel Stat Lab 07/10/24 14:25 Completed Prothrombin Time INR Stat Lab 07/10/24 14:25 Completed Troponin I Q3H Lab 07/10/24 18:00 Ordered Troponin I Q3H Lab 07/10/24 21:00 Ordered Troponin I Stat Lab 07/10/24 14:25 Completed Urinalysis and Microscopic Stat Lab 07/10/24 Completed Medical Decision Narrative: 69-year-old female history of developmental delay, 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 Patient's family bedside providing history because patient is nonverbal. States that around 9 AM today, 07/10, patient was eating breakfast. It appeared that she was unable to swallow the way that she usually does. Water started pouring out of both sides of her mouth, she did not choke or lose consciousness. No syncope, falls, etc. Sister at bedside also states the patient has been shuffling more recently than usual in terms of gait. Patient nonverbal, but sister states she is able to communicate with her nonverbally. She has not been complaining of any pain, acting like she is hurting, any changes from baseline. History obtained with patient's sister. Also a chart review. On arrival, well-appearing and at her baseline, per sister. NIHSS 1 for facial droop. This is on the left side. Bilateral upper extremities with symmetric strength, bilateral lower extremities with symmetric strength. Pulses equal and symmetric. No lower extremity edema. Abdomen soft, nontender, nondistended. Surgical scar overlying and well-healed. Cardiopulmonary exam within normal limits, no murmurs gallops or rubs. Patient tracking around the room with eyes and does not appear to have any gross neurologic deficits. Differential includes progressive decline, swallowing dysfunction, CVA, metabolic abnormality, aspiration, among others. Hematologic workup and imaging ordered. On independent interpretation, patient's white count mildly elevated. Chemistry with mild hypokalemia, overall nonactionable. CT head independently interpreted and without acute intracranial hemorrhage. Prior to rest of labs and imaging, care handed off to oncoming physician. [employer] Expert disclaimer Much of this encounter note is an electronic planned giving officer spoken language to printed text. Electronic planned giving officer of the spoken language may permit errors. Although I have reviewed the note, some errors may still exist. DO Dev: on my assessment of the patient, patient is sitting upright in bed in no acute distress. My NIHSS 1 for facial asymmetry. History obtained by myself from the patient's sister who is her caregiver: Sister noted that she ate dinner last night and was normal at that time, but around 9 PM she noted some facial asymmetry and eyelid lagging. She noted she thought maybe she was just very sleepy, so she gave her her nighttime medications and was going to put her to bed. She notes she was having a really hard time swallowing her medications, but she thought that maybe she just choked up on them. This morning, inability to eat and drink persisted as well as the facial droop, prompting sister to come in because she thought maybe she had had a stroke. She noted that things were pouring out of her mouth as she was trying to eat and drink. She also noted a shuffling gait. Patient has had no fevers, chills, vomiting, changes bowel movements, or other concerns. Patient does not contribute to history given baseline neurologic status. Labs demonstrate very mild leukocytosis, very mild hyponatremia, mildly elevated BUN. AST mildly elevated at 44. Nothing acutely actionable on labs. Urine is not concerning for infection. CT imaging concerning for left vertebral artery occlusion at the V4 segment. I shared imaging with [facility]. I had an interactive discussion with interventional neuroradiologist Dr. Whitney who noted vertebral artery occlusion, likely chronic in their opinion, but noted no acute intervention indicated. They also noted right artery is dominant and left is overall small in caliber and they recommended medical management. I did request neurology recommendations, and I spoke with Dr. Hamilton. He advised that this does not fit any sort of typical stroke pattern but he recommended further evaluation by PT/OT, speech swallow eval given the difficulty with oral intake. He also recommended that given that she has a significant stenosis/occlusion of her left vertebral artery that the patient be started on aspirin and a statin. Ultimately, for further evaluation and management I feel she would benefit from admission. They advise no transfer for neurology given no intervention indicated. I had an interactive discussion with the hospitalist who admitted the patient in stable condition. Critical Care <Jack Muniz MD - Last Filed: 07/10/24 15:16> Critical Care Time Critical Care Time: No
[2024-07-10 15:18] LABS: Ethyl Alcohol < 10 mg/dl (0-10)
[2024-07-10 15:21] LABS: Direct LDL Cholesterol 61.63 mg/dL (100-129)
[2024-07-10] MEDS: 0.9 % SODIUM CHLORIDE 50 ML VIAL IV (15:30)
[2024-07-10] MEDS: SODIUM CHLORIDE 0.9% 10ML SYR (RAD ONLY) 10 ML IV (15:31)
[2024-07-10] MEDS: IOPAMIDOL-370 (76%);100ML BOTTLE 80 ML IV (15:31)
[2024-07-10 15:37] LABS: HIV (1&2) Antibody Rapid NONREACTIVE (NONREACTIVE)
[2024-07-10 15:41] LABS: Microscopic, Urine URINE MICROSCOPIC (MICROSCOPIC)
[2024-07-10 15:44] LABS: Appearance,Urine CLEAR (Clear); Bilirubin,Urine Negative (Negative); Blood, Urine Negative (Negative); Color,Urine YELLOW (Yellow); Glucose,Urine (UA) Negative (Negative); Ketones,Urine Negative (Negative); Leukocyte Esterase,Urine Negative (Negative); Nitrate,Urine Negative (Negative); Protein,Urine Negative (Negative); Urobilinogen,Urine 0.2 EU/dl (0.2)
[2024-07-10 15:46] LABS: Troponin I < 0.01 ng/ml (0.00-0.034)
--- NOTE | 2024-07-10 16:22 | PC.NURSE ---
call made to radiology for [facility] of images, and make a disc for possible transfer to [facility]
[2024-07-10 16:26] LABS: Bacteria,Urine 1+ /lpf; Hyaline Casts,Urine OCC #/lpf (0); Squamous Epithelial Cell,Urine Occasional #/hpf (0-5); WBC,Urine Occasional #/hpf (0-3)
--- NOTE | 2024-07-10 16:54 | MR_ITS ---
PROCEDURE INFORMATION: Exam: MR Head Without Contrast Exam date and time: 07/10/2024 5:31 PM Age: 69 years old Clinical indication: Stroke-like symptoms; Right facial droop; Additional info: Stroke evaluation TECHNIQUE: Imaging protocol: Magnetic resonance imaging of the head without contrast. COMPARISON: CT ANGIO HEAD 07/10/2024 3:27 PM FINDINGS: Brain: Diffuse cerebral atrophy and white matter microangiopathic chronic ischemia in both hemispheres. No MR evidence of acute infarct, hemorrhage, mass or mass effect. Cerebral ventricles: Ventriculomegaly. No obstructing intraventricular lesion identified. Correlate with signs/symptoms of normal pressure hydrocephalus. Bones: Unremarkable. Paranasal sinuses: Normal as visualized. No acute sinusitis. Mastoid air cells: Normal as visualized. No mastoid effusion. Orbital cavities: Unremarkable. Soft tissues: Unremarkable. IMPRESSION: 1. No MR evidence of acute brain injury. Diffusion-weighted imaging is normal. There has been no acute ischemic event. 2. Ventriculomegaly. Correlate with signs/symptoms of normal pressure hydrocephalus.
--- NOTE | 2024-07-10 16:58 | PC.NURSE ---
Dr. Méndez at [facility] to update pt/family on results and POC
--- NOTE | 2024-07-10 17:05 | PC.NURSE ---
called for admission
--- NOTE | 2024-07-10 17:25 | PC.NURSE ---
Pt gone to MRI via wheelchair
--- NOTE | 2024-07-10 18:05 | P.HP_ITS ---
History of Present Illness *Admission Date: 07/10/24 *Reason for visit:: facial droop *History of present illness: Jenny Dawson is a 69 year old female with a medical history significant for premature , cognitive impairment who presented with concerns of left sided facial droop. She lives at home with her sister who is her primary federal java developer. Per sister, patient has been having left sided facial droop since 9am today. Additionally, since then patient has been having trouble chewing her foods, drooling more, liquids dripping out of left side of mouth. No history of CVAs, cardiac history. No other deficits. Workup in the ED significant for WBC 11.2. 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 ED provider reached out to neuroradiologist who did not recommend intervention. Also spoke to neurology who also did not recommend intervention. Case discussed with ED provider and decision was made to admit patient for strokelike symptoms. [facility] Disclaimer: The information contained in this section may have been updated after the patient was seen, as this information can be updated by other users. Medical History Hypoglycemia Autism HTN (hypertension) Surgical History History of colon resection Cecal volvulus Social History Smoking Status: Unknown if ever smoked alcohol intake: never substance use type: denies use current occupational status: disabled Travel in the last 8 weeks: None household members: family housing: house caffeine: Yes Other Medical History Have you received the Flu Vaccine for this season: Yes Have you received the Pneumonia Vaccine: Yes Meds Home Medications and Allergies Home Medications ?Medication ?Instructions ?Recorded ?Confirmed ?Type vitamins A,C,Y-hdyy-aseihr 2,148 1 tab PO BID Supplement 03/22/23 07/10/24 History mcg-113 mg-45 mg-17.4 mg tablet (PreserVision AREDS) polyethylene glycol 3350 17 17 g PO BID 03/05/24 07/10/24 History gram/dose oral powder (Miralax) spironolactone 25 mg tablet 100 mg PO DAILY Fluid 03/05/24 07/10/24 History latanoprost 0.005 % eye drops 1 drp Eye-Both BID 04/03/24 07/10/24 History temazepam 7.5 mg capsule 22.5 mg (3 x 7.5 mg) PO HS PRN 05/23/24 07/10/24 Rx sleep #90 caps acyclovir 400 mg tablet 400 mg PO 5XDAY 8 days #40 tabs 07/11/24 Rx prednisone 10 mg tablet 60 mg (6 x 10 mg) PO DAILY #33 tabs 07/11/24 Rx New Prescriptions to Start Prescriptions: acyclovir [place],George prednisone [place],George Allergies Allergy/AdvReac Type Severity Reaction Status Date / Time losartan Allergy Verified 06/05/24 15:26 Exam Data for Last 24 hours Vital signs and Labs for Last 24 Hours: Temp Pulse Resp BP Pulse Ox O2 Del Method 97.4 F L 65 16 127/50 L 96 Room Air 07/10/24 17:37 07/10/24 17:37 07/10/24 17:37 07/10/24 17:37 07/10/24 17:00 07/10/24 17:37 Laboratory Results - last 24 hr 07/10/24 14:25: WBC 11.2 H, RBC 4.78, Hgb 14.4, Hct 41.3, MCV 86.5, MCH 30.2, MCHC 34.9, RDW 14.3, Plt Count 120 L, MPV 6.6 L, Neut % (Auto) 60.1, Lymph % (Auto) 12.6, [place] % (Auto) 5.4, Eos % (Auto) 21.5 H, Baso % (Auto) 0.4, Neut # (Auto) 6.7, Lymph # (Auto) 1.4, [place] # (Auto) 0.6, Eos # (Auto) 2.4 H, Baso # (Auto) 0.1, PT 11.0, INR 0.98, APTT 27.0, Sodium 133 L, Potassium 4.6, Chloride 93 L, Carbon Dioxide 31 H, Anion Gap 13.6, BUN 21 H, Creatinine 0.80, Estimated Creat Clear 41, Estimated GFR 71, Est GFR ( Amer) 86, Glucose 152 H, Calcium 9.0, Total Bilirubin 0.5, AST 44 H, ALT 40, Alkaline Phosphatase 87, Troponin I < 0.01, Total Protein 6.5, Albumin 4.1, Globulin 2.4, Albumin/Globulin Ratio 1.7, Triglycerides 118, Cholesterol 119 L, LDL Cholesterol Direct 61.63 L, VLDL Cholesterol 24, HDL Cholesterol 43, Cholesterol/HDL Ratio 2.8, Plasma/Serum Alcohol < 10, HIV 1&2 Antibody Rapid Nonreactive 07/10/24 : Urine Color Yellow, Urine Appearance Clear, Urine pH 6.0, Ur Specific [place] 1.010, Urine Protein Negative, Urine Glucose (UA) Negative, Urine Ketones Negative, Urine Blood Negative, Urine Nitrate Negative, Urine Bilirubin Negative, Urine Urobilinogen 0.2, Ur Leukocyte Esterase Negative, Urine RBC 5- 10, Urine WBC Occasional, Ur Squamous Epith Cells Occasional, Urine Bacteria 1+, Hyaline Casts Occ I & O for Last 24 hours: Intake & Output 07/07/24 07/08/24 07/09/24 07/10/24 23:59 23:59 23:59 23:59 Weight 49.895 kg Constitutional Constitutional: no acute distress *Routine HEENT Exam Head: Present normocephalic Eye: Present EOMI and PERRL ENT: Present mucous membranes moist *Routine Neck Exam Neck: Present supple; Absent lymphadenopathy *Routine Respiratory Exam Respiratory: Present CTA bilaterally *Routine Cardiovascular Exam Cardiovascular: Present RRR *Routine Abdominal Exam Abdominal: Present soft and normoactive bowel sounds; Absent tenderness *Routine Rectal Exam Rectal:: deferred *Routine Genitalia Exam Genitalia:: deferred *Routine Extremities Exam Extremities: Absent cyanosis, clubbing or edema *Routine Skin Exam Skin: Present warm; Absent rash *Routine Neurological Exam Neurological: Present alert Comments: Pleasant, with cognitive impairment. Complete left-sided facial paralysis including forehead. Assessment and Plan *Assessment and plan (1) Occlusion of left vertebral artery: Status: Acute Category: Medical Code(s): I65.02 - Occlusion and stenosis of left vertebral artery (2) Abnormal gait: Status: Acute Category: Medical Code(s): R26.9 - Unspecified abnormalities of gait and mobility (3) Facial droop: Status: Acute Category: Medical Code(s): R29.810 - Facial weakness (4) Harris's palsy: Status: Acute Category: Medical Code(s): G51.0 - Harris's palsy Plan Jenny Dawson is a 69 year old female with a medical history significant for premature , cognitive impairment who presented with concerns of left sided facial droop. She lives at home with her sister who is her primary federal java developer. Per sister, patient has been having left sided facial droop since 9am today. Additionally, since then patient has been having trouble chewing her foods, drooling more, liquids dripping out of left side of mouth. No history of CVAs, cardiac history. No other deficits. Workup in the ED significant for WBC 11.2. 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 ED provider reached out to neuroradiologist who did not recommend intervention. Also spoke to neurology who also did not recommend intervention. Case discussed with ED provider and decision was made to admit patient for strokelike symptoms. #Complete left facial paralysis #Harris's palsy - MRI did not show acute ischemic findings after being admitted. Did show ventriculomegaly, which is likely chronic with a history of premature , developmental delays, and cognitive impairment. - Presentation is most consistent with Harris's palsy, especially with unilateral forehead paralysis involvement, and not CVA. - Started prednisone 60 mg daily, acyclovir 400 mg 5 times a day. - YARN FINISHER tomorrow to assess for PO tolerance. Passed bedside swallow today. #Ventriculomegaly ? Patient does have symptoms of wide base gait, urinary incontinence, and cognitive impairment. ? The symptoms have been chronic for patient and there have been no acute changes. ? Will refer to neurology for outpatient evaluation and management. #Hypertension ? Resume home medications once reconciled. Full code Lovenox 40 mg Pur?ed diet
[2024-07-10 19:02] LABS: Troponin I < 0.01 ng/ml (0.00-0.034)
[2024-07-10] MEDS: ACYCLOVIR 400MG TAB 400 MG PO (20:21)
[2024-07-10] MEDS: predniSONE 20MG TAB 60 MG PO (20:21)
[2024-07-10 21:57] LABS: Troponin I < 0.01 ng/ml (0.00-0.034)
[2024-07-11] VITALS: BP 127/71; PULSE 55; RESP 16; TEMP 37.1; O2SAT 98
[2024-07-11 03:49] VITALS: BP 148/83; PULSE 58; RESP 16; TEMP 36.4; O2SAT 97
[2024-07-11 03:50] VITALS: BMI 23.3
[2024-07-11] MEDS: ACYCLOVIR 400MG TAB 400 MG PO ×4 (05:53→16:11)
--- NOTE | 2024-07-11 06:50 | PC.NURSE ---
Alert and oriented. Nonverbal, says yes and no, can draw answers to questions. No complaints from patient. Mild facial dropping to left side, no other neuro symptoms. Sister at bedside throughout the night. Takes pills crushed in applesauce. Ambulates to the restroom with 1 assist. Bed alarm on. Call light in reach.
[2024-07-11 06:55] LABS: Albumin Level 4.1 g/dl (3.5-5.0); Chloride 99 mmol/L (98-107); Potassium 4.4 mmoL/L (3.5-5.1); Sodium 131 mmol/L (136-145)
[2024-07-11 06:58] LABS: Alanine Aminotransferase 41 U/L (12-78); Albumin/Globulin Ratio 1.7 (1.1-1.8); Alkaline Phosphatase 107 U/L (38-126); Anion Gap 12.4 mEq/L (5-15); Aspartate Amino Transferase 39 U/L (14-36); Basophils % 0.2 % (0.1-2.0); Bilirubin,Total 0.4 mg/dl (0.2-1.3); Blood Urea Nitrogen 15 mg/dl (7-17); Calcium 8.8 mg/dl (8.4-10.2); Carbon Dioxide 24 mmol/L (22.0-30.0); Creatinine Clearance Estimated 42 mL/min (50-200); Eosinophils % 0.4 % (0.1-12.0); Estimated Glomerular Filt Rate 71 ml/min (>60); GFR (African American) 86 ML/MIN (>60); Globulin 2.4 g/dL (1.3-3.2); Glucose 155 mg/dl (74-100); Hematocrit 42.7 % (37.0-47.0); Hemoglobin 14.4 g/dL (12.2-16.2); Lymphocytes % 8.4 % (10-50); Mean Corpuscular HGB Conc 33.8 g/dL (31.8-35.4); Mean Corpuscular Hemoglobin 29.7 pg (27.0-31.2); Mean Corpuscular Volume 87.7 fl (81-99); Mean Platelet Volume 6.7 fl (7.4-10.4); Monocytes # 0.2 K/mm3 (0.1-1.0); Monocytes % 1.5 % (1.7-9.3); Neutrophils # 10.2 K/mm3 (1.8-7.8); Neutrophils % 89.5 % (37.0-80.0); Platelet Count 112 K/mm3 (142-424); Red Blood Count 4.87 M/mm3 (4.20-5.40); Red Cell Distribution Width 14.4 % (11.5-17.5); Total Protein,Serum 6.5 g/dl (6.3-8.2); White Blood Count 11.4 K/mm3 (4.8-10.8)
[2024-07-11 07:01] LABS: MANUAL DIFFERENTIAL MANUAL DIFFERENTIAL (MANUAL DIFF)
--- NOTE | 2024-07-11 07:17 | XR_ITS ---
PROCEDURE INFORMATION: Exam: XR Chest Exam date and time: 07/11/2024 7:43 AM Age: 69 years old Clinical indication: Pain; Chest pressure; Additional info: Persistient leukocytosis TECHNIQUE: Imaging protocol: Radiologic exam of the chest. Views: 1 view. COMPARISON: CR XR CHEST 2V 03/24/2023 8:46 AM FINDINGS: Tubes, catheters and devices: None. Lungs: Azygous fissure containing azygous vein identified within the right upper lung. This represents normal variant anatomy. Lung volumes are decreased. Bilateral pulmonary linear interstitial opacities identified within lower lungs. Pleural spaces: No pleural effusion. No pneumothorax. Heart/Mediastinum: Cardiac silhouette appears mildly enlarged. Vasculature: Severe atherosclerotic calcification and plaque demonstrated within the aorta. Bones/joints: Generalized bony degenerative changes. Other findings: Limited evaluation with patient rotation. IMPRESSION: 1. Mild enlarged cardiac silhouette. 2. Pulmonary atelectasis or acute infiltrates within lower chest bilaterally. 3. Chronic findings.
[2024-07-11 07:20] LABS: Lymphocytes % 9 % (10-50); Monocytes % 1 % (2-9); Neutrophils % 90 % (42-76); Platelet Estimate Slight Decrease; RBC Morphology Normal; Total Cells Counted 100
[2024-07-11 08:00] VITALS: BP 154/75; PULSE 71; RESP 19; O2SAT 95
[2024-07-11] MEDS: ENOXAPARIN 40MG/0.4ML SYRINGE 40 MG SUBCUT (08:03)
[2024-07-11] MEDS: LATANOPROST 0.005% OPTH SOLN 2.5ML OP (08:04)
[2024-07-11] MEDS: predniSONE 20MG TAB 60 MG PO (08:04)
[2024-07-11] MEDS: 0.9 % SODIUM CHLORIDE 1000ML 500 ML IV (08:11)
[2024-07-11 08:25] LABS: HCV Ab Non Reactive (Non Reactive)
[2024-07-11 10:16] VITALS: BMI 23.3
--- NOTE | 2024-07-11 10:58 | HMH.SLDYSPHA ---
Speech & Language Evaluation Speech/Language Dysphagia Evaluation Start: 07/11/24 10:44 Freq: ONCE Status: Active Protocol: Document 07/11/24 10:45 HUANG (Rec: 07/11/24 10:58 HUANG Laptop) Dysphagia Assess/Goals/Plan Assessment Date of Evaluation: 07/11/24 Evaluation Type Initial Certification Assessment/Problems facial droop, potential stroke per MD order Does Patient Qualify for Service Yes Qualify/Failure Comment Based on clinical observation and caregiver interview, pt would benefit from follow-up with skilled speech therapy services to assess for diet texture analysis and diet tolerance. Recommendations PHYSICIAN CERTIFICATION: The specified therapy services are required, authorized, and reviewed every 30 days. Pt will be seen # times/week 1 for # weeks 4 Diet Recommendations Mechanical Soft Liquid Type Recommendations Normal/Thin SL Swallow Guidelines Assist w/all meals,Alt bite w/ sip thru meal,High aspiration risk,Chk mough for pocketing, Crush meds as allowed*,Eat at slow rate,Oral care pre/post meals Crush Meds Crush all meds Dysphagia Swallow Precautions/Strategies Sitting Upright (90 deg),No Straw,Small Bites and Sips, Alternate Liquids/Solids Plan Pt/Guardian verbally ack understanding Yes of dx/prognosis/goals G -code Required No Education Instructions provided Discussed diet recommendations , standard aspiration precautions, and results of CSE with unix engineer/pt, nursing , and care management all of which expressed understanding. Pt/Caregiver able to recall information Able to recall/restate Reinforcement needed No Speech & Language HPI History Present Illness Description of Patient Problem AIRCRAFT MECHANIC pulled following information for H&P, 69 year old female with a medical history significant for premature , cognitive impairment who presented with concerns of left sided facial droop. She lives at home with her sister who is her primary unix engineer. Per sister, patient has been having left sided facial droop since 9am today. Additionally, since then patient has been having trouble chewing her foods, drooling more, liquids dripping out of left side of mouth. No history of CVAs, cardiac history. No other deficits. Workup in the ED significant for WBC 11.2. Head CT notable for venticulomegaly General Information General Current Food Consistancy Pureed,Thin Liquids Dentition Poor Dentition Ability to Follow Directions Fair Communication Ability Severe Impairment Dysphagia:Food Presentation Evaluation Food Type Pureed,Mechanical Soft,Liquid, Pudding Pudding Consistency Liquid Response Falls out of mouth Dysphagia Evaluation Summary Pt seen sitting upright at side of bed for CSE. Oral care provided prior to administering trials. Pt nonverbal at baseline with facial droop. Block And Case Maker reporting increased salvia with poor secretion management and difficulty manipulating and masticating bolus. Caregiver reports primarily receiving pureed diet with some 'ground up' foods in home environment with no straws 2' pt's impulsivity. Pt was given pudding, applesauce, thin liquid water via ice chip /spoon, and open cup sips with no overt s/sxs of aspiration. AIRCRAFT MECHANIC trialed crushed MS nutrigrain bar with pudding and pt was able to tolerate. Given performance with MS, caregiver requested trialing crushed ezio cracker with pudding. Pt was observed to have anterior loss of bolus with increased salvia. It is recommended to trial mechanical soft ground diet and follow up for diet tolerance. Stroke Dysphagia Assessment PHYSICIAN CERTIFICATION: I certify the specified therapy services for Jenny Dawson are required, authorized, and reviewed every 30 days.
[2024-07-11 11:06] LABS: Procalcitonin 0.045 ng/mL (0.0-2.0)
[2024-07-11 11:22] VITALS: BP 149/74; PULSE 67; RESP 18; TEMP 36.2; O2SAT 97
--- NOTE | 2024-07-11 15:09 | P.DS_ITS ---
General Admission date:: 07/10/24 HPI HPI HPI: Jenny Dawson is a 69 year old female with a medical history significant for premature , cognitive impairment who presented with concerns of left sided facial droop. She lives at home with her sister who is her primary railroad construction director. Per sister, patient has been having left sided facial droop since 9am today. Additionally, since then patient has been having trouble chewing her foods, henok oling more, liquids dripping out of left side of mouth. No history of CVAs, cardiac history. No other deficits. Workup in the ED significant for WBC 11.2. Head CT notable for venticulomegaly, head/neck CTA notable for Hospital Course Hospital Course Hospital Course: Jenny Dawson is a 69 year old female with a medical history significant for premature , cognitive impairment who presented with concerns of left sided facial droop. She lives at home with her sister who is her primary railroad construction director. Per sister, patient has been having left sided facial droop since 9am today. Additionally, since then patient has been having trouble chewing her foods, drooling more, liquids dripping out of left side of mouth. No history of CVAs, cardiac history. No other deficits. Workup in the ED significant for WBC 11.2. 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 ED provider reached out to neuroradiologist who did not recommend intervention. Also spoke to neurology who also did not recommend intervention. Case discussed with ED provider and decision was made to admit patient for strokelike symptoms. #Complete left facial paralysis #Harris's palsy - MRI did not show acute ischemic findings after being admitted. Did show ventriculomegaly, which is likely chronic with a history of premature , developmental delays, and cognitive impairment. - Presentation is most consistent with Harris's palsy, especially with unilateral forehead paralysis involvement, and not CVA. - Started prednisone 60 mg daily, acyclovir 400 mg 5 times a day with improvement in symptoms today. -INSPECTOR EXPERIMENTAL ASSEMBLY evaluated patient, recommended mechanical ground diet. ? Medically stable for discharge today. ? Discharged with prednisone 60 mg taper, acyclovir 400 mg 5 times a day. ? Will follow-up with PCP within 1 week. #Ventriculomegaly ? Patient does have symptoms of wide base gait, urinary incontinence, and cognitive impairment. ? The symptoms have been chronic for patient and there have been no acute changes. ? Will refer to neurology for outpatient evaluation and management. #Hypertension ? Resume home medications once reconciled. Exam Data for Last 24 hours Vital signs and Labs for Last 24 Hours: Temp Pulse Resp BP Pulse Ox O2 Del Method 97.1 F L 67 18 149/74 H 97 Room Air 07/11/24 11:22 07/11/24 11:22 07/11/24 11:22 07/11/24 11:22 07/11/24 11:22 07/11/24 13:00 Laboratory Results - last 24 hr 07/10/24 14:25: PT 11.0, INR 0.98, APTT 27.0, Sodium 133 L, Potassium 4.6, Chloride 93 L, Carbon Dioxide 31 H, Anion Gap 13.6, BUN 21 H, Creatinine 0.80, Estimated Creat Clear 41, Estimated GFR 71, Est GFR ( Amer) 86, Glucose 152 H, Calcium 9.0, Total Bilirubin 0.5, AST 44 H, ALT 40, Alkaline Phosphatase 87, Troponin I < 0.01, Total Protein 6.5, Albumin 4.1, Globulin 2.4, Albumin/Globulin Ratio 1.7, Triglycerides 118, Cholesterol 119 L, LDL Cholesterol Direct 61.63 L, VLDL Cholesterol 24, HDL Cholesterol 43, Cholesterol/HDL Ratio 2.8, Plasma/Serum Alcohol < 10, Hepatitis C Antibody Non reactive, HIV 1&2 Antibody Rapid Nonreactive 07/10/24 18:12: Troponin I < 0.01 07/10/24 21:13: Troponin I < 0.01 07/10/24 : Urine Color Yellow, Urine Appearance Clear, Urine pH 6.0, Ur Specific [place] 1.010, Urine Protein Negative, Urine Glucose (UA) Negative, Urine Ketones Negative, Urine Blood Negative, Urine Nitrate Negative, Urine Bilirubin Negative, Urine Urobilinogen 0.2, Ur Leukocyte Esterase Negative, Urine RBC 5- 10, Urine WBC Occasional, Ur Squamous Epith Cells Occasional, Urine Bacteria 1+, Hyaline Casts Occ 07/11/24 06:15: WBC 11.4 H, RBC 4.87, Hgb 14.4, Hct 42.7, MCV 87.7, MCH 29.7, MCHC 33.8, RDW 14.4, Plt Count 112 L, MPV 6.7 L, Neut % (Auto) 89.5 H, Lymph % (Auto) 8.4 L, [place] % (Auto) 1.5 L, Eos % (Auto) 0.4, Baso % (Auto) 0.2, Neut # (Auto) 10.2 H, Lymph # (Auto) 1.0, [place] # (Auto) 0.2, Eos # (Auto) 0.0, Baso # (Auto) 0.0, Total Counted 100, Neutrophils % (Manual) 90 H, Lymphocytes % (Manu al) 9 L, Monocytes % (Manual) 1 L, Platelet Estimate Slight decrease, RBC Morphology Normal, Sodium 131 L, Potassium 4.4, Chloride 99, Carbon Dioxide 24, Anion Gap 12.4, BUN 15 D, Creatinine 0.80, Estimated Creat Clear 42, Estimated GFR 71, Est GFR ( Amer) 86, Glucose 155 H, Calcium 8.8, Total Bilirubin 0.4, AST 39 H, ALT 41, Alkaline Phosphatase 107, Total Protein 6.5, Albumin 4.1, Globulin 2.4, Albumin/Globulin Ratio 1.7, Procalcitonin 0.045 I & O for Last 24 hours: Intake & Output 07/08/24 07/09/24 07/10/24 07/11/24 23:59 23:59 23:59 23:59 Intake Total 960 / 960 Output Total 0 / 0 270 / 270 Balance 0 / 180 690 / 690 Weight 49.583 kg 50.4 kg Constitutional Constitutional: no acute distress *Routine HEENT Exam Head: Present normocephalic Eye: Present EOMI and PERRL ENT: Present mucous membranes moist *Routine Neck Exam Neck: Present supple; Absent lymphadenopathy *Routine Respiratory Exam Respiratory: Present CTA bilaterally *Routine Cardiovascular Exam Cardiovascular: Present RRR *Routine Abdominal Exam Abdominal: Present soft and normoactive bowel sounds; Absent tenderness *Routine Extremities Exam Extremities: Absent cyanosis, clubbing or edema *Routine Skin Exam Skin: Present warm; Absent rash *Routine Neurological Exam Neurological: Present alert Comments: Pleasant, cognitive impairment. Complete left-sided facial paralysis. Including forehead. Results Data Completed and Pending Labs on day of discharge: Labs from last 24 hours 07/11/24 07/10/24 07/10/24 06:15 Unknown 21:13 WBC 11.4 H RBC 4.87 Hgb 14.4 Hct 42.7 MCV 87.7 MCH 29.7 MCHC 33.8 RDW 14.4 Plt Count 112 L MPV 6.7 L Neut % (Auto) 89.5 H Lymph % (Auto) 8.4 L [place] % (Auto) 1.5 L Eos % (Auto) 0.4 Baso % (Auto) 0.2 Neut # (Auto) 10.2 H Lymph # (Auto) 1.0 [place] # (Auto) 0.2 Eos # (Auto) 0.0 Baso # (Auto) 0.0 Total Counted 100 Neutrophils % (Manual) 90 H Lymphocytes % (Manual) 9 L Monocytes % (Manual) 1 L Platelet Estimate Slight decrease RBC Morphology Normal PT INR APTT Sodium 131 L Potassium 4.4 Chloride 99 Carbon Dioxide 24 Anion Gap 12.4 BUN 15 D Creatinine 0.80 Estimated Creat Clear 42 Estimated GFR 71 Est GFR ( Amer) 86 Glucose 155 H Calcium 8.8 Total Bilirubin 0.4 AST 39 H ALT 41 Alkaline Phosphatase 107 Troponin I < 0.01 Total Protein 6.5 Albumin 4.1 Globulin 2.4 Albumin/Globulin Ratio 1.7 Triglycerides Cholesterol LDL Cholesterol Direct VLDL Cholesterol HDL Cholesterol Cholesterol/HDL Ratio Procalcitonin 0.045 Urine Color Yellow Urine Appearance Clear Urine pH 6.0 Ur Specific [place] 1.010 Urine Protein Negative Urine Glucose (UA) Negative Urine Ketones Negative Urine Blood Negative Urine Nitrate Negative Urine Bilirubin Negative Urine Urobilinogen 0.2 Ur Leukocyte Esterase Negative Urine RBC 5-10 Urine WBC Occasional Ur Squamous Epith Cells Occasional Urine Bacteria 1+ Hyaline Casts Occ Plasma/Serum Alcohol Hepatitis C Antibody HIV 1&2 Antibody Rapid 07/10/24 07/10/24 18:12 14:25 WBC RBC Hgb Hct MCV MCH MCHC RDW Plt Count MPV Neut % (Auto) Lymph % (Auto) [place] % (Auto) Eos % (Auto) Baso % (Auto) Neut # (Auto) Lymph # (Auto) [place] # (Auto) Eos # (Auto) Baso # (Auto) Total Counted Neutrophils % (Manual) Lymphocytes % (Manual) Monocytes % (Manual) Platelet Estimate RBC Morphology PT 11.0 INR 0.98 APTT 27.0 Sodium 133 L Potassium 4.6 Chloride 93 L Carbon Dioxide 31 H Anion Gap 13.6 BUN 21 H Creatinine 0.80 Estimated Creat Clear 41 Estimated GFR 71 Est GFR ( Amer) 86 Glucose 152 H Calcium 9.0 Total Bilirubin 0.5 AST 44 H ALT 40 Alkaline Phosphatase 87 Troponin I < 0.01 < 0.01 Total Protein 6.5 Albumin 4.1 Globulin 2.4 Albumin/Globulin Ratio 1.7 Triglycerides 118 Cholesterol 119 L LDL Cholesterol Direct 61.63 L VLDL Cholesterol 24 HDL Cholesterol 43 Cholesterol/HDL Ratio 2.8 Procalcitonin Urine Color Urine Appearance Urine pH Ur Specific [place] Urine Protein Urine Glucose (UA) Urine Ketones Urine Blood Urine Nitrate Urine Bilirubin Urine Urobilinogen Ur Leukocyte Esterase Urine RBC Urine WBC Ur Squamous Epith Cells Urine Bacteria Hyaline Casts Plasma/Serum Alcohol < 10 Hepatitis C Antibody Non reactive HIV 1&2 Antibody Rapid Nonreactive Meds Home Medications and Allergies Home Medications ?Medication ?Instructions ?Recorded ?Confirmed ?Type vitamins A,C,V-yfai-rfbytc 2,148 1 tab PO BID Supplement 03/22/23 07/10/24 History mcg-113 mg-45 mg-17.4 mg tablet (PreserVision AREDS) polyethylene glycol 3350 17 17 g PO BID 03/05/24 07/10/24 History gram/dose oral powder (Miralax) spironolactone 25 mg tablet 100 mg PO DAILY Fluid 03/05/24 07/10/24 History latanoprost 0.005 % eye drops 1 drp Eye-Both BID 04/03/24 07/10/24 History temazepam 7.5 mg capsule 22.5 mg (3 x 7.5 mg) PO HS PRN 05/23/24 07/10/24 Rx sleep #90 caps acyclovir 400 mg tablet 400 mg PO 5XDAY 8 days #40 tabs 07/11/24 Rx prednisone 10 mg tablet 60 mg (6 x 10 mg) PO DAILY #33 tabs 07/11/24 Rx New Prescriptions to Start Prescriptions: acyclovir JabierGeorge prednisone [place],George Allergies Allergy/AdvReac Type Severity Reaction Status Date / Time losartan Allergy Verified 06/05/24 15:26 Discharge Plan Disposition Patient Disposition: Home, Self-Care Condition: Fair Follow up Plan Follow up with: Shimon Erickson MD [Primary Care Provider] - 07/16/24 2:30 pm Prescriptions/Medication Reconciliation: New acyclovir 400 mg Tablet 400 mg PO 5XDAY 8 Days Qty: 40 0RF prednisone 10 mg tablet 60 mg PO DAILY Qty: 33 0RF Rx Instructions: Take 60 mg for 3 more days, then take 50 mg and decrease by 10 mg daily. Continued latanoprost 0.005 % drops 1 drp Eye-Both BID Patient Comments: INSTILL 1 DROP INTO BOTH EYES EVERY NIGHT AT BEDTIME polyethylene glycol 3350 [Miralax] 17 gram/dose powder 17 g PO BID temazepam 7.5 mg capsule 22.5 mg PO HS PRN (Reason: sleep) Qty: 90 1RF PreserVision AREDS 2,148 mcg-113 mg-45 mg-17.4mg Tablet 1 tab PO BID spironolactone 25 mg tablet 100 mg PO DAILY Problem Reconciliation Problems Reviewed?: Yes Patient Discharge Instructions ACTIVITY: Continue current activity Patient Instructions: DI for Schulter Palsy Print Language: Mohawk Providers Primary Care Provider: Shimon Erickson Admit Provider: George Eugene Attending Provider: George Eugene
--- NOTE | 2024-07-12 13:46 | CARE MANAGER ---
Contacted patient's sister related to hospital discharge. She states that she is doing well and denies any questions or concerns. She is aware of follow up appointment and new medications. She did want to speak to dietitian. Transferred call down there. THOR Hernandes
== END 2024-07-11 19:00 | disposition home or self-care (01) ==
LOC: ER 17:11 → 2ND 17:57
PROVIDERS: Admitting Provider Student in an Organized Health Care Education/Training Program; Emergency Provider Emergency Medicine; PCP Internal Medicine; Visit Provider Student in an Organized Health Care Education/Training Program
DX: G51.0 Bell's palsy (principal); I65.02 Occlusion and stenosis of left vertebral artery; R26.9 Unspecified abnormalities of gait and mobility; R29.810 Facial weakness; Z79.899 Other long term (current) drug therapy; Q04.8 Other specified congenital malformations of brain; R13.19 Other dysphagia; F80.89 Other developmental disorders of speech and language
CPT/HCPCS: 36415; 70450; 70496; 70498; 70551; 71045; 80053; 80061; 80320; 81001; 84145; 84484; 85007; 85025; 85027; 85610; 85730; 86803; 87389; 92507; 92610; 93005; 99285; G0378; G0480; J1650; J7030; Q9967

== ENCOUNTER 2025-05-09 09:53 | Outpatient (CLI) | payer MEDICARE, OTHER, SELFPAY ==
[2025-05-09 17:34] LABS: Hematocrit 42.7 % (37.0-47.0); Hemoglobin 14.0 g/dL (12.2-16.2); Immature Granulocytes % 0.2 %; Mean Corpuscular HGB Conc 32.8 g/dL (31.8-35.4); Mean Corpuscular Hemoglobin 28.7 pg (27.0-31.2); Mean Corpuscular Volume 87.5 fl (81-99); Nucleated Red Blood Cells % 0 %; Platelet Count 106 K/mm3 (142-424); Red Blood Count 4.88 M/mm3 (4.20-5.40); Red Cell Distribution Width-SD 41.5 fL; White Blood Count 8.1 K/mm3 (4.8-10.8)
[2025-05-09 18:50] LABS: Albumin Level 4.5 g/dl (3.5-5.0); Chloride 100 mmol/L (98-107); Potassium 5.2 mmoL/L (3.5-5.1); Sodium 134 mmol/L (136-145)
[2025-05-09 18:53] LABS: Alanine Aminotransferase 22 U/L (12-78); Albumin/Globulin Ratio 1.9 (1.1-1.8); Alkaline Phosphatase 88 U/L (38-126); Anion Gap 11.2 mEq/L (5-15); Aspartate Amino Transferase 36 U/L (14-36); Bilirubin,Total 0.3 mg/dl (0.2-1.3); Blood Urea Nitrogen 21 mg/dl (7-17); Carbon Dioxide 28 mmol/L (22.0-30.0); Creatinine,Serum 0.90 mg/dl (0.52-1.04); Estimated Glomerular Filt Rate 62 ml/min (>60); GFR (African American) 75 ML/MIN (>60); Globulin 2.4 g/dL (1.3-3.2); Total Protein,Serum 6.9 g/dl (6.3-8.2)
[2025-05-09 18:54] LABS: Calcium 9.3 mg/dl (8.4-10.2); Glucose 65 mg/dl (74-100)
--- OUTSIDE RECORDS SUMMARY | 2025-05-14 10:27 | XMS_ITS | Clinical Summary ---
Author Organization Healthcare Address [address] [place] [address] Care Team Providers Care Premix Concrete Batcher Name Role Phone Shimon Erickson MD Primary Care Provider [phone] Family History Medical History Relation Name Comments Brain cancer Brother FH: brain cance r Prostate cancer Father FH: prostate cancer Relation Name Status Comments Brother Father Social History Tobacco Use Types Packs/Day Years Used Date Smoking Tobacco: Never Assessed Comments Unknown Sex and Gender Information Value Date Recorded Sex Assigned at Not on file Legal Sex Female 6:47 PM EDT Gender Identity Not on file Sexual Orientation Not on file Plan of Treatment Health Maintenance Due Date Last Done Comments [facility]-Bone Density Scan 1954 [facility]-Depression Screening 1954 [facility]-Hepatitis C Screening 1954 [facility]-/Child/Adol SDOH Screenings 1954 [facility]- SDOH Screenings 02/09/1972 [facility]-Adult SDOH Screenings 02/09/1972 [facility]-DTaP,Tdap,and Td Vaccine s (1 - Tdap) 1973 CT Colonography 1999 Colonoscopy 1999 FIT-DNA 1999 FIT 1999 FOBT 1999 Sigmoidoscopy 1999 [facility]-Colorectal Cancer Screening 1999 [facility]-Breast Cancer Screening 02/09/2004 [facility]-Pneumococcal Vaccine: 50 + Years (1 of 1 - PCV) 02/09/2004 [facility]-Zoster Vaccines (1 of 2) 02/09/2004 [id number] Vaccine (4 - 2023- season) 2024 07/16/2021, 10/17/2020, 09/17/2020 [facility]-Influenza Vaccine (#1) 2025 [facility]-RSV Vaccine: 60+ Years o r (1 - 1-dose 75+ series) 2029 HPV Vaccines Aged Out No longer eligi ble based on patient's age to complete this topic [facility]-HIB Vaccines Aged Out No longer e ligible based on patient's age to complete this topic [facility]-Hepatitis A Vaccines Aged Out No longer eligible based on patient's age to complete this topic [facility]-IPV Vaccines Aged Out No longer e ligible based on patient's age to complete this topic [facility]-Rotavirus Vaccines Aged Out No lo nger eligible based on patient's age to complete this topic Care Teams Premix Concrete Batcher Relationship Specialty Start Date End Date Shimon Erickson MD [address] [place] [address] [address] SAMEERA Amor [id number] PCP - General 01/23/21
== END 2025-05-09 23:59 ==
LOC: LAB.DROPOF 05-14 09:54
PROVIDERS: PCP Internal Medicine; Visit Provider Internal Medicine
DX: I65.02 Occlusion and stenosis of left vertebral artery (principal); I10 Essential (primary) hypertension; G51.0 Bell's palsy
CPT/HCPCS: 80053; 85025

== ENCOUNTER 2025-06-11 16:02 | Emergency (ER) | payer MEDICARE, OTHER, SELFPAY ==
[2025-06-11] VITALS (18 sets, daily range): BP systolic 107–139; BP diastolic 42–67; PULSE 61–109; RESP 16–19; TEMP 36.3–36.6; O2SAT 91–100; BMI 23.5
--- OUTSIDE RECORDS SUMMARY | 2025-06-11 16:22 | XMS_ITS | Clinical Summary ---
Author Organization Healthcare Address [address] [place] [address] Care Team Providers Care Ambulance Driver Name Role Phone Shimon Erickson MD Primary Care Provider [phone] Family History Medical History Relation Name Comments [...] 02/09/2004 [facility]-Zoster Vaccines (1 of 2) 02/09/2004 [id number] Vaccine (4 - 2024- season) 2025 07/16/2021, 10/17/2020, 09/17/2020 [facility]-Influenza Vaccine (#1) 2025 [...] age to complete this topic Care Teams Ambulance Driver Relationship Specialty Start Date End Date Shimon Erickson MD [address] [place] [address] [address] SAMEERA Amor [id number] PCP - General 01/23/21
--- NOTE | 2025-06-11 16:26 | XR_ITS ---
PROCEDURE INFORMATION: Exam: XR Chest Exam date and time: 06/11/2025 5:36 PM Age: 70 years old Clinical indication: Shortness of breath; Additional info: Short of breath TECHNIQUE: Imaging protocol: Radiologic exam of the chest. Views: 1 view. COMPARISON: CR XR CHEST PORTABLE 07/11/2024 7:43 AM FINDINGS: Tubes, catheters and devices: None. Lungs: Mild bilateral perihilar and basilar interstitial lung opacities, suggesting pulmonary edema versus infiltrates. No consolidation. Azygous fissure containing azygous vein identified within the right upper lung. This represents normal variant anatomy. Pleural spaces: No pleural effusion. No pneumothorax. Heart/Mediastinum: Cardiac silhouette appears mildly enlarged. Vasculature: Tortuous and ectatic aorta is demonstrated. Moderate to severe atherosclerotic calcification demonstrated within the aorta. Bones/joints: Generalized bony degenerative changes. IMPRESSION: 1. Mild enlarged cardiac silhouette. 2. Mild interstitial pulmonary edema versus infiltrates. 3. Chronic findings.
--- NOTE | 2025-06-11 16:26 | CT_ITS ---
PROCEDURE INFORMATION: Exam: CT Abdomen And Pelvis With Contrast Exam date and time: 06/11/2025 6:20 PM Age: 70 years old Clinical indication: Other: Diarrhea TECHNIQUE: Imaging protocol: Computed tomography of the abdomen and pelvis with contrast. Radiation optimization: All CT scans at this facility use at least one of these dose optimization techniques: automated exposure control; mA and/or kV adjustment per patient size (includes targeted exams where dose is matched to clinical indication); or iterative reconstruction. Contrast material: ISOVUE; Contrast volume: 75 ml; Contrast route: IV; COMPARISON: CT ABDOMEN PELVIS W CON 04/09/2023 5:21 PM FINDINGS: Lungs: Bilateral pulmonary linear interstitial opacities identified within posterior and lower lungs. The pulmonary opacities are most prominent within the lower left lung. Coronary arteries: Coronary arterial calcifications are demonstrated. Liver: Unremarkable. No mass. Gallbladder and biliary ducts: Unremarkable. No calcified stones. No ductal dilation. Pancreas: Unremarkable. Spleen: Incidental calcifications noted within the spleen, compatible with old granulomatous disease. Adrenal glands: Fat-density right adrenal incidental lesion, demonstrating features compatible with a benign myelolipoma. Right adrenal lesion measurement: 1.7 cm on axial image 31. The left adrenal gland appears unremarkable. Kidneys and ureters: Unremarkable. No hydronephrosis or calculi. Stomach and bowel: Prominent fluid identified within the bowel, colon and rectum, compatible with diarrheal state. Findings are compatible with infectious or inflammatory gastroenteritis. No visualized evidence for bowel obstruction or ileus. The bowel appears otherwise unremarkable. Bowel anastomosis with surgical clips in the right abdomen. Recommend clinical correlation. Appendix: No evidence of appendicitis. Intraperitoneal space: Small volume of intraperitoneal fluid identified in the bilateral pelvis. No significant intraperitoneal well-defined fluid collection or air identified. Vasculature: Mild atherosclerotic calcification demonstrated within the aorta. Mild atherosclerotic arterial vascular wall calcifications are demonstrated. Lymph nodes: No enlarged lymph nodes. Urinary bladder: Urinary bladder appears small in size, limiting further assessment. Reproductive: Unremarkable as visualized. Bones/joints: No acute bony abnormality. Dextroscoliosis of the thoracolumbar spine is demonstrated. Mild to moderate generalized bony degenerative changes. Bony structures appear otherwise unremarkable. Soft tissues: Unremarkable. Other findings: Limited study with artifact created by extremities overlying the area of imaging. Limited study with motion artifact. Evidence for postsurgical changes in the ventral wall. IMPRESSION: 1. Findings compatible with diarrheal state, infectious or inflammatory gastroenteritis. See above details. 2. Pulmonary atelectasis or acute infiltrates within posterior and lower chest bilaterally. 3. Small volume free fluid within the pelvis. 4. Right benign adrenal myelolipoma.
[2025-06-11 16:35] LABS: Microscopic, Urine URINE MICROSCOPIC (MICROSCOPIC)
--- NOTE | 2025-06-11 16:37 | ED_ITS ---
<Statement entered by Pradeep Mathew MD - 06/11/25 23:10> I was consulted by the BOOM, and we discussed the complexity of the problems being addressed. I approved the treatment and management plan for this patient's care in the emergency department, thus performing a substantive portion of the medical decision making. Patient has moderate hyponatremia and hypochloremia consistent with her illness and has rapid follow-up on an outpatient basis appropriate for outpatient management at this time. Pradeep Mathew MD Discharge Plan Disposition Patient Disposition: Home, Self-Care Prescriptions Prescriptions: New cefdinir 300 mg capsule 300 mg PO BID 10 Days Qty: 20 0RF No Action latanoprost 0.005 % drops 1 drp ophthalmic (eye) HS Patient Comments: INSTILL 1 DROP BOTH EYES EVERY EVENING Systane Balance 0.6 % drops 1 drp ophthalmic (eye) DAILY PRN carboxymethylcellulose sodium [Refresh Tears] 0.5 % drops 1 drp ophthalmic (eye) BID hydrocortisone [Cortizone-10] 1 % cream 1 applic topical BID PRN lorazepam 0.5 mg tablet 0.5 mg PO BID PRN (Reason: Anxiety or sleep) Qty: 14 1RF Rx Instructions: Only use for sleep if temazepam is not available. polyethylene glycol 3350 [Miralax] 17 gram/dose powder 17 g PO BID spironolactone 100 mg tablet 100 mg PO DAILY Qty: 90 1RF temazepam 7.5 mg capsule 22.5 mg PO HS Qty: 90 0RF PreserVision AREDS 2,148 mcg-113 mg-45 mg-17.4mg Tablet 1 tab PO BID Referrals Follow up/Referrals: Shimon Erickson MD [Staff Physician, Medical] - See instructions ProviderBenson MD [Primary Care Provider, Medical] - See instructions Activity Restrictions/Add. Instructions Additional Instructions/Restrictions: Increase fluids and rest. Please follow-up with Dr. Erickson as we discussed. If any problems or concerns please return to the ED. Clinical Impressions Clinical Impression: Gastroenteritis, COVID Instructions Patient Instructions: Viral Gastroenteritis, DI for Respiratory Distress Syndrome in Adults Print Language Print Language: Emirati Discharge ED Provider: Pradeep Mathew General Adult HPI <Morena Nolan (ED), [employer]GY INSTALLATION MANAGER - Last Filed: 06/11/25 20:26> General Chief complaint: Nausea/Vomiting/Diarrhea Stated complaint: congestion,weakness Time Seen by Provider: 06/11/25 16:30 Mode of Arrival: Wheelchair Source of Information: Parent(s) Description of Symptoms (Recalled from ER Triage Doc. by RN): Patient presents to ED with mother whom reports patient has had a cough and congestion that started yesterday and diarrhea that started this AM as well as generalized weakness. History of Present Illness HPI narrative: 70-year-old female presents to the ED today with complaint of cough, congestion that started last night but has worsened today. She has diarrhea that started this morning and some generalized weakness. She has had weakness with getting out of bed. Difficulty with walking. Mom says she shuffles at times. She says she has had watery diarrhea. No complaint of pain. No fevers or chills. Mom states that patient does not never respond with correct responses but she will say yes and no. No other abnormalities at this time. Related Data Home Medications ?Medication ?Instructions ?Recorded ?Confirmed vitamins A,C,C-zpxs-otjpog 2,148 1 tab PO BID Suppleme nt 03/22/23 05/09/25 mcg-113 mg-45 mg-17.4 mg tablet (PreserVision AREDS) polyethylene glycol 3350 17 17 g PO BID 03/05/2405/09 gram/dose oral powder (Miralax) carboxymethylcellulose sodium 0.5 1 drp ophthalmic (ey e) BID 12/04/24 05/09/25 % eye drops (Refresh Tears) hydrocortisone 1 % topical cream 1 applic topical BID PRN 12/04/24 05/09/25 (Cortizone-10) latanoprost 0.005 % eye drops 1 drp ophthalmic (eye) H S 12/04/24 05/09/25 propylene glycol 0.6 % eye drops 1 drp ophthalmic (eye ) DAILY PRN 12/04/24 05/09/25 (Systane Balance) Previous Rx's ?Medication ?Instructions ?Recorded spironolactone 100 mg tablet 100 mg PO DAILY #90 tabs 02/28/25 lorazepam 0.5 mg tablet 0.5 mg PO BID PRN Anxiety or sleep 05/09/25 #14 tabs temazepam 7.5 mg capsule 22.5 mg (3 x 7.5 mg) PO HS # 90 caps 06/05/25 cefdinir 300 mg capsule 300 mg PO BID 10 days #20 ca ps 06/11/25 Allergies Allergy/AdvReac Type Severity Reaction Status Date / Time losartan Allergy Verified 05/09/25 14:54 PFSH <Morena Nolan (ED), [employer] INSTALLATION MANAGER - Last Filed: 06/11/25 20:26> PFS Disclaimer: The information contained in this section may have been updated after the patient was seen, as this information can be updated by other users. Medical History Screening for colon cancer Change in bowel habit Contusion of right shoulder or upper extremity Right shoulder pain Right upper limb pain Diverticulosis Open wound anterior abdominal wall Status post hematoma evacuation Neutrophilic leukocytosis Anemia associated with acute blood loss Ovarian mass Hypoglycemia Autism HTN (hypertension) Surgical History Status post colon resection History of colon resection Cecal volvulus Social History Smoking Status: Never smoker alcohol intake: never substance use type: denies use current occupational status: disabled Travel in the last 8 weeks?: None household members: family housing: house caffeine: Yes Have you lived/traveled outside US in past 30 days?: No Contact w/someone who lives/traveled outside US past 30 days?: No Exposure to someone with infectious disease in past 14 days?: No Do you have a fever (greater than 100.4 F or 38 C)?: No Have you tested positive for COVID-19?: No Exposed to someone with COVID-19 in past 14 days?: No Do you have a sore throat?: No Do you have a cough?: No Do you have any weakness?: No Do you have any diarrhea?: No Are you experiencing any unusual bleeding?: No Do you have any muscle aches/pain?: No Do you have any abdominal pain?: No Are you experiencing loss of taste or smell?: No Other Medical History Have you received the Flu Vaccine for this season: No Have you received the Pneumonia Vaccine: Yes <Morena Nolan (ED), SOL[employer]ERGY INSTALLATION MANAGER - Last Filed: 06/11/25 20:26> ROS Obtained: Yes Systems reviewed as appropriate & no additional complaints except as documented Constitutional Constitutional: Reports as per HPI Physical Exam <Morena Nolan (ED), SOLAR ENERGY INSTALLATION MANAGER - Last Filed: 06/11/25 20:26> General General appearance: alert Head Head exam: normocephalic Eye Eye exam: Present PERRL and EOMI ENT ENT exam: Present normal oropharynx and mucous membranes moist Neck Neck exam: Present full ROM and trachea midline Respiratory Respiratory exam: Present wheezes and other (Congestion, rhonchi) Cardiovascular Cardiovascular exam: Present regular rate, normal rhythm, normal heart sounds, +S1 and +S2 Abdominal Exam Abdominal exam: Present soft and normal bowel sounds Extremities Exam Extremities exam: Present full ROM and normal capillary refill Neurological Exam Neurological exam: Present alert and oriented X3 Skin Skin exam: Present warm, dry and intact Medical Decision Making <Morena Florenceruddyying (ED), [employer]GY INSTALLATION MANAGER - Last Filed: 06/11/25 20:26> Medical Records Screening: Per USPSTF and CDC recommendations, given the prevalence of disease in our region, it is our hospital?s policy to screen for HIV and viral Hepatitis for all patients aged 18 and over and those with ongoing risk factors. [employer] Inquiry Pt receiving controlled substance: No [employer] was queried for this patient: No Vital Signs: 06/11/25 16:23 06/11/25 20:00 Temperature 97.4 F L 98 F Temperature Source Axillary Temporal Artery Scan Pulse Rate 90 Pulse Rate [Left] 65 Respiratory Rate 19 16 Blood Pressure 128/63 Blood Pressure [Right Arm] 108/42 L Blood Pressure Mean [Right Arm] 64 Blood Pressure Source Automatic Cuff Blood Pressure Source [Right Arm] Automatic Cuff Blood Pressure Position Sitting Blood Pressure Position [Right Arm] Supine 02 Sat by Pulse Oximetry 100 Oxygen Delivery Method Room Air Room Air Lab Data Lab Results 06/11/25 16:16: Urine Color Yellow, Urine Appearance Clear, Urine pH 6.0, Ur Specific [place] 1.010, Urine Protein Negative, Urine Glucose (UA) Negative, Urine Ketones Negative, Urine Blood Trace-i, Urine Nitrate Negative, Urine Bilirubin Negative, Urine Urobilinogen 0.2, Ur Leukocyte Esterase Negative, Urine RBC None, Urine WBC None, Ur Squamous Epith Cells None, Urine Bacteria None 06/11/25 16:58: WBC 7.4, RBC 4.86, Hgb 14.2, Hct 41.9, MCV 86.2, MCH 29.2, MCHC 33.9, RDW 13.3, Plt Count 57 L, MPV 9.0, Neut % (Auto) 73.3, Lymph % (Auto) 14.9, [place] % (Auto) 11.4 H, Eos % (Auto) 0.0 L, Baso % (Auto) 0.1, Neut # (Auto) 5.4, Lymph # (Auto) 1.1, [place] # (Auto) 0.8, Eos # (Auto) 0.0, Baso # (Auto) 0.0, D-Dimer 0.66 H, Sodium 128 L, Potassium 5.3 H, Chloride 92 L, Carbon Dioxide 26, Anion Gap 15.3 H, BUN 23 H, Creatinine 0.90, Estimated Creat Clear 39, Estimated GFR 62, Est GFR ( Amer) 75, Glucose 111 H, Calcium 8.7, Magnesium 2.3, Total Bilirubin 0.8, AST 64 H, ALT 38, Alkaline Phosphatase 96, Troponin I 0.02, NT-Pro-B Natriuret Pep 1690 H, Total Protein 7.0, Albumin 4.3, Globulin 2.7, Albumin/Globulin Ratio 1.6, Lipase 263, SARS-CoV-2 (PCR) Detected A, Influenza A Untype (PCR) Not detected, Influenza Type B (PCR) Not detected 06/11/25 17:22: Lactate 1.4 06/11/25 16:58 06/11/25 16:58 Orders (Tests/Meds): ED MEDICATIONS Generic Name Dose Route Start Last Admin Trade Name Freq PRN Reason Stop Dose Admin Ceftriaxone Sodium 1 gm/ 50 mls @ 100 mls/hr 06/11/25 19:30 06/11/25 20:21 Sodium Chloride IV 06/21/25 19:29 Infused Q24H DILIA Infusion Discontinued Medications Generic Name Dose Route Start Last Admin Trade Name Freq PRN Reason Stop Dose Admin Albuterol/Ipratropium 9 ml 06/11/25 16:26 06/11/25 17:13 Ipratropium/Albuterol 3 Ml Neb IH 06/11/25 16:27 9 ml ONCE ONE Administration Dexamethasone Sodium Phosphate 8 mg 06/11/25 16:26 06/11/25 17:11 Dexamethasone 4mg/Ml 1ml Vial IV 06/11/25 16:27 8 mg ONCE ONE Administration Sodium Chloride 1,000 mls @ 999 mls/hr 06/11/25 16:26 06/11/25 19:00 Sod Chlor 0.9% 1000ml Bag IV 06/11/25 17:26 Infused .Q1H1M ONE Infusion Magnesium Sulfate 2 gm in 50 mls @ 50 mls/hr 06/11/25 16:26 06/11/25 19:00 Magnesium Sulfate 2gm/50ml Premix IV 06/11/25 17:25 Infused ONCE ONE Infusion Iopamidol 75 ml 06/11/25 18:19 06/11/25 18:20 Iopamidol-370 (76%);100ml Bottle IV 06/11/25 18:20 75 ml ONCE ONE Administration Sodium Chloride 10 ml 06/11/25 18:19 06/11/25 18:20 Sodium Chloride 0.9% 10ml Syr (Rad Only) IV 06/11/25 18:20 10 ml ONCE ONE Administration ORDERS Category Date Time Status CT abdomen pelvis w con Stat Cat Scan 06/11/25 16:26 Completed Chest XR -- portable [XR chest portable] Stat Exams 06/11/25 16:26 Completed BNP [NT Pro Brain Natriuretic Pep.] Stat Lab 06/11/25 16:58 Completed CBC [Complete Blood Count Auto Diff] Stat Lab 06/11/25 16:58 Completed Comprehensive Metabolic Panel Stat Lab 06/11/25 16:58 Completed D-Dimer Stat Lab 06/11/25 16:58 Completed Diarrhea 23 Panel, PCR Stat Lab 06/11/25 16:28 Ordered Lactic Acid Stat Lab 06/11/25 17:22 Completed Lipase Stat Lab 06/11/25 16:58 Completed Magnesium Stat Lab 06/11/25 16:58 Completed Rapid PCR Covid and Flu A/B Stat Lab 06/11/25 16:58 Completed Trop I [Troponin I] Stat Lab 06/11/25 16:58 Completed Troponin I Q3H Lab 06/11/25 19:30 Ordered Troponin I Q3H Lab 06/11/25 22:30 Ordered Urinalysis and Microscopic Stat Lab 06/11/25 16:16 Completed Medical Decision Narrative: patient is a 70-year-old female presenting to the emergency department for evaluation of weakness, cough, diarrhea, congestion. Patient is hemodynamically stable and nontoxic-appearing upon arrival, afebrile. Differential diagnosis includes pneumonia, diarrhea, COVID, flu, among others. Workup will be conducted with hematologic labs, specific imaging. Initial inventions include crystalloid bolus, analgesics, antibiotics. Dimer was 0.66. Patient is age-adjusted out. Per your years criteria PE is excluded. Patient's BNP was 1690. Patient does have some effusions on her x- ray but also has COVID. She has obvious symptoms of COVID. She has been weak with walking recently. Patientand I remember when I discussed follow-up at this week. They will follow-up with PCP on if patient is not improving. Follow-up on Tuesday if patient is improving. Patient given antibiotic just to ensure that patient does not end up with clinical pneumonia. Patient safe for discharge home. <Pradeep Mathew MD - Last Filed: 06/11/25 16:48> Vital Signs: 06/11/25 16:23 06/11/25 20:00 Temperature 97.4 F L 98 F Temperature Source Axillary Temporal Artery Scan Pulse Rate 90 Pulse Rate [Left] 65 Respiratory Rate 19 16 Blood Pressure 128/63 Blood Pressure [Right Arm] 108/42 L Blood Pressure Mean [Right Arm] 64 Blood Pressure Source Automatic Cuff Blood Pressure Source [Right Arm] Automatic Cuff Blood Pressure Position Sitting Blood Pressure Position [Right Arm] Supine 02 Sat by Pulse Oximetry 100 Oxygen Delivery Method Room Air Room Air Lab Data Lab Results 06/11/25 16:16: Urine Color Yellow, Urine Appearance Clear, Urine pH 6.0, Ur Specific [place] 1.010, Urine Protein Negative, Urine Glucose (UA) Negative, Urine Ketones Negative, Urine Blood Trace-i, Urine Nitrate Negative, Urine Bilirubin Negative, Urine Urobilinogen 0.2, Ur Leukocyte Esterase Negative, Urine RBC None, Urine WBC None, Ur Squamous Epith Cells None, Urine Bacteria None 06/11/25 16:58: WBC 7.4, RBC 4.86, Hgb 14.2, Hct 41.9, MCV 86.2, MCH 29.2, MCHC 33.9, RDW 13.3, Plt Count 57 L, MPV 9.0, Neut % (Auto) 73.3, Lymph % (Auto) 14.9, [place] % (Auto) 11.4 H, Eos % (Auto) 0.0 L, Baso % (Auto) 0.1, Neut # (Auto) 5.4, Lymph # (Auto) 1.1, [place] # (Auto) 0.8, Eos # (Auto) 0.0, Baso # (Auto) 0.0, D-Dimer 0.66 H, Sodium 128 L, Potassium 5.3 H, Chloride 92 L, Carbon Dioxide 26, Anion Gap 15.3 H, BUN 23 H, Creatinine 0.90, Estimated Creat Clear 39, Estimated GFR 62, Est GFR ( Amer) 75, Glucose 111 H, Calcium 8.7, Magnesium 2.3, Total Bilirubin 0.8, AST 64 H, ALT 38, Alkaline Phosphatase 96, Troponin I 0.02, NT-Pro-B Natriuret Pep 1690 H, Total Protein 7.0, Albumin 4.3, Globulin 2.7, Albumin/Globulin Ratio 1.6, Lipase 263, SARS-CoV-2 (PCR) Detected A, Influenza A Untype (PCR) Not detected, Influenza Type B (PCR) Not detected 06/11/25 17:22: Lactate 1.4 Orders (Tests/Meds): ED MEDICATIONS Generic Name Dose Route Start Last Admin Trade Name Freq PRN Reason Stop Dose Admin Ceftriaxone Sodium 1 gm/ 50 mls @ 100 mls/hr 06/11/25 19:30 06/11/25 20:21 Sodium Chloride IV 06/21/25 19:29 Infused Q24H DILIA Infusion Discontinued Medications Generic Name Dose Route Start Last Admin Trade Name Freq PRN Reason Stop Dose Admin Albuterol/Ipratropium 9 ml 06/11/25 16:26 06/11/25 17:13 Ipratropium/Albuterol 3 Ml Neb IH 06/11/25 16:27 9 ml ONCE ONE Administration Dexamethasone Sodium Phosphate 8 mg 06/11/25 16:26 06/11/25 17:11 Dexamethasone 4mg/Ml 1ml Vial IV 06/11/25 16:27 8 mg ONCE ONE Administration Sodium Chloride 1,000 mls @ 999 mls/hr 06/11/25 16:26 06/11/25 19:00 Sod Chlor 0.9% 1000ml Bag IV 06/11/25 17:26 Infused .Q1H1M ONE Infusion Magnesium Sulfate 2 gm in 50 mls @ 50 mls/hr 06/11/25 16:26 06/11/25 19:00 Magnesium Sulfate 2gm/50ml Premix IV 06/11/25 17:25 Infused ONCE ONE Infusion Iopamidol 75 ml 06/11/25 18:19 06/11/25 18:20 Iopamidol-370 (76%);100ml Bottle IV 06/11/25 18:20 75 ml ONCE ONE Administration Sodium Chloride 10 ml 06/11/25 18:19 06/11/25 18:20 Sodium Chloride 0.9% 10ml Syr (Rad Only) IV 06/11/25 18:20 10 ml ONCE ONE Administration ORDERS Category Date Time Status CT abdomen pelvis w con Stat Cat Scan 06/11/25 16:26 Completed Chest XR -- portable [XR chest portable] Stat Exams 06/11/25 16:26 Completed BNP [NT Pro Brain Natriuretic Pep.] Stat Lab 06/11/25 16:58 Completed CBC [Complete Blood Count Auto Diff] Stat Lab 06/11/25 16:58 Completed Comprehensive Metabolic Panel Stat Lab 06/11/25 16:58 Completed D-Dimer Stat Lab 06/11/25 16:58 Completed Diarrhea 23 Panel, PCR Stat Lab 06/11/25 16:28 Ordered Lactic Acid Stat Lab 06/11/25 17:22 Completed Lipase Stat Lab 06/11/25 16:58 Completed Magnesium Stat Lab 06/11/25 16:58 Completed Rapid PCR Covid and Flu A/B Stat Lab 06/11/25 16:58 Completed Trop I [Troponin I] Stat Lab 06/11/25 16:58 Completed Troponin I Q3H Lab 06/11/25 19:30 Ordered Troponin I Q3H Lab 06/11/25 22:30 Ordered Urinalysis and Microscopic Stat Lab 06/11/25 16:16 Completed ECG Data Tracing #1: Independently turbid by me rate of 66, rhythm is regular, axis is normal, no ST elevation or depression in anatomical contiguous leads. Concave upsloping ST segment QTc 386. Critical Care <Morena Nolan (ED), [employer] INSTALLATION MANAGER - Last Filed: 06/11/25 20:26> Critical Care Time Critical Care Time: No
[2025-06-11 16:39] LABS: Bilirubin,Urine Negative (Negative); Color,Urine YELLOW (Yellow); Glucose,Urine (UA) Negative (Negative); Ketones,Urine Negative (Negative); Leukocyte Esterase,Urine Negative (Negative); PH,Urine 6.0 (5.0-8.5); Protein,Urine Negative (Negative); Specific Gravity, Urine 1.010 (1.005-1.030); Urobilinogen,Urine 0.2 EU/dl (0.2)
--- NOTE | 2025-06-11 16:44 | ECG_ITS ---
APPROVED REPORT Exam: Resting ECG HR:66 bpm ECG Measurements Heart Rate 66 AXES AL 118 P 41 QRSd 117 QRS 94 QT 373 T 66 QTc 386 Conclusion SINUS RHYTHM WITH SHORT AL INTERVAL BORDERLINE RIGHT AXIS DEVIATION [QRS AXIS > 90] LATERAL MYOCARDIAL INFARCTION , PROBABLY RECENT [40+ ms Q WAVE AND/OR ST/T ABNORMALITY IN I/aVL/V5/V6] POSSIBLE INFERIOR MYOCARDIAL INFARCTION , OF INDETERMINATE AGE [30 ms Q WAVE IN II/aVF] ACUTE MT UNCONFIRMED REPORT Electronically signed by : KATHY DAMICO, 06/13/2025 23:05:51
[2025-06-11 17:07] LABS: Influenza A, PCR Not Detected (NotDetected); Influenza B, PCR Not Detected (NotDetected)
[2025-06-11 17:10] LABS: Hematocrit 41.9 % (37.0-47.0); Hemoglobin 14.2 g/dL (12.2-16.2); Immature Granulocytes % 0.3 %; Mean Corpuscular HGB Conc 33.9 g/dL (31.8-35.4); Mean Corpuscular Hemoglobin 29.2 pg (27.0-31.2); Mean Corpuscular Volume 86.2 fl (81-99); Nucleated Red Blood Cells % 0 %; Red Blood Count 4.86 M/mm3 (4.20-5.40); Red Cell Distribution Width-SD 42.2 fL; White Blood Count 7.4 K/mm3 (4.8-10.8)
[2025-06-11] MEDS: DEXAMETHASONE 4MG/ML 1ML VIAL 8 MG IV (17:11)
[2025-06-11] MEDS: 0.9 % SODIUM CHLORIDE 1000ML 1,000 ML 999 ML IV (17:12)
[2025-06-11] MEDS: MAGNESIUM SULFATE IN WATER 2 GM/50 ML PIGGYBACK IV (17:12)
[2025-06-11] MEDS: IPRATROPIUM/ALBUTEROL 3 ML NEB 9 ML IH (17:13)
[2025-06-11 17:36] LABS: Alanine Aminotransferase 38 U/L (12-78); Albumin Level 4.3 g/dl (3.5-5.0); Albumin/Globulin Ratio 1.6 (1.1-1.8); Alkaline Phosphatase 96 U/L (38-126); Anion Gap 15.3 mEq/L (5-15); Aspartate Amino Transferase 64 U/L (14-36); Bilirubin,Total 0.8 mg/dl (0.2-1.3); Blood Urea Nitrogen 23 mg/dl (7-17); Calcium 8.7 mg/dl (8.4-10.2); Carbon Dioxide 26 mmol/L (22.0-30.0); Chloride 92 mmol/L (98-107); Creatinine Clearance Estimated 39 mL/min (50-200); Creatinine,Serum 0.90 mg/dl (0.52-1.04); Estimated Glomerular Filt Rate 62 ml/min (>60); GFR (African American) 75 ML/MIN (>60); Globulin 2.7 g/dL (1.3-3.2); Glucose 111 mg/dl (74-100); Lipase 263 U/L (23-300); Magnesium 2.3 mg/dl (1.6-2.3); Potassium 5.3 mmoL/L (3.5-5.1); Sodium 128 mmol/L (136-145); Total Protein,Serum 7.0 g/dl (6.3-8.2)
[2025-06-11 17:41] LABS: D-Dimer 0.66 ug/mL (0.0-0.5)
[2025-06-11 17:47] LABS: NT Pro Brain Natriuretic Pep. 1690 pg/mL (0-125)
[2025-06-11 17:50] LABS: Troponin I 0.02 ng/ml (0.00-0.034)
[2025-06-11 18:01] LABS: Coronavirus 19, PCR Detected (NotDetected)
[2025-06-11 18:09] LABS: Platelet Count 57 K/mm3 (142-424)
[2025-06-11] MEDS: SODIUM CHLORIDE 0.9% 10ML SYR (RAD ONLY) 10 ML IV (18:20)
[2025-06-11] MEDS: IOPAMIDOL-370 (76%);100ML BOTTLE 75 ML IV (18:20)
[2025-06-11] MEDS: CEFTRIAXONE 1 GM 1 GM in 0.9 % SODIUM CHLORIDE 50 ML IV (19:43)
== END 2025-06-11 20:27 | disposition home or self-care (01) ==
PROVIDERS: Nurse Practitioner; Emergency Provider Emergency Medicine
DX: U07.1 COVID-19 (principal); K52.9 Noninfective gastroenteritis and colitis, unspecified; E87.1 Hypo-osmolality and hyponatremia; E87.5 Hyperkalemia; R53.1 Weakness
CPT/HCPCS: 71045; 74177; 80053; 81001; 83605; 83690; 83735; 83880; 84484; 85025; 85378; 87636; 93005; 96365; 96367; 96375; 99285; J0696; J1100; J3475; J7030; Q9967